=== PATIENT | female | born 1955 | race Caucasian/White ===

== ENCOUNTER → 2019-08-08 | Outpatient (CLI) | payer SELFPAY | PROVIDERS: Family Provider Nurse Practitioner; PCP Nurse Practitioner; Visit Provider Nurse Practitioner Family | DX: R60.0 Localized edema (principal) | CPT/HCPCS: 93970 ==

== ENCOUNTER 2019-09-07 15:02 | Outpatient (CLI) | payer MEDICARE, MEDICAID, SELFPAY ==
--- NOTE | 2019-09-07 15:10 | USCV_ITS ---
Shreya Salazar Age: 64 Gender: F : 1955 Exam Date: 09/07/2019 15:06 Ordering Phys: Melyssa Triana XX Technologist: Hakeem Werner Exam Location: [facility] [place] Indication: PAIN IN LOWER LIMB BILATERAL RIGHT LEFT Brachial 137.00 mmHg Brachial 135.00 mmHg Pressure (mmHg) Waveform Pressure (mmHg) Waveform 160.00 ALLEY TENDER 141.00 143.00 DPA 92.00 1.17 Ankle/Brachial Index 1.03 96.00 Pre-Exercise Toe Pressure 91.00 0.70 Pre-Exercise Toe/Brachial Index 0.66 FINDINGS Normal resting ABIs bilaterally Normal resting TBI on the right side Slightly diminished resting TBI on the left side CONCLUSIONS Features of mild peripheral artery disease on the left side No significant arterial obstruction on the right side Dr Brigida Mejia MD [facility] (Electronically Signed) Final Date: 08 September 2019 18:27 S
== END 2019-09-07 15:03 | disposition home or self-care (01) ==
LOC: RAD 15:06
PROVIDERS: Family Provider Nurse Practitioner; PCP Nurse Practitioner; Visit Provider Nurse Practitioner Family
DX: M79.604 Pain in right leg (principal); M79.605 Pain in left leg; G89.29 Other chronic pain; M54.5 Low back pain; M54.2 Cervicalgia; F17.210 Nicotine dependence, cigarettes, uncomplicated; Z79.891 Long term (current) use of opiate analgesic
CPT/HCPCS: 93922; 99214

== ENCOUNTER 2019-09-18 16:13 | Emergency (ER) | payer MEDICARE, MEDICAID, SELFPAY ==
[2019-09-18 16:19] VITALS: BP 151/61; PULSE 85; RESP 16; TEMP 37.8; O2SAT 95; BMI 24.7
--- NOTE | 2019-09-18 16:31 | ED_ITS ---
Entered by Katlyn Hartman, acting as scribe for Erin Lewis DO HPI - General Adult General: Chief complaint: General Medical Stated complaint: lungs hurt/ right leg pain Time Seen by Provider: 09/18/19 16:31 History of Present Illness: HPI narrative: 64 yo female presents with swelling in her legs. Pt states that she has been taking 80mg of lasix a day. Pt states that her legs are warm to the touch. Pt states that she thinks she has blood poi soning. Pt states that she has a fever. Pt states that she has had pneumonia for 7 months. MD complaint: leg swelling Onset (ago): day(s) Location: lower extremity Radiation: non-radiation Severity: moderate Quality: constant Pain Consistency: constant Relieving factors: none Exacerbating factors: none Associated symptoms: Reports cough, dyspnea and malaise; Deny chest pain, diaphoresis, headache(s), nausea, rash, palpitations, syncope or vomiting Review of Systems Const: Reports: fever, chills and malaise; Denies: body aches, change in appetite, change in weight, fatigue or diaphoresis Eyes: Denies: change in vision, blurry vision, blind spots, photophobia, eye discomfort, eye discharge, eye redness, yellow eyes or increased production of tears ENMT: Denies: throat pain, uvular edema, enlarged tonsils, painful swallowing, hoarseness, mouth pain or swelling of lips/tongue Card: Reports: edema; Denies: chest pain, palpitations, irregular heart rhythm, swelling of feet/ankles, lightheadedness, syncope, pre-syncope or shortness of breath on exertion Resp: Reports: shortness of breath and non-productive cough GI: Denies: abdominal pain, nausea, vomiting, vomiting blood, coffee grounds in vomit, difficulty swallowing or heartburn/indigestion : Denies: flank pain, difficulty urinating, painful urination, urinary frequency, urinary urgency or urinary hesitancy Musc: Reports: extremity pain and extremity swelling; Denies: neck pain or back pain Skin/Breast: Denies: rash, itching, redness or sensitivity to light Neuro: Denies: headache, numbness in extremities, weakness in extremities, changes in sensation, lack of coordination or difficulty walking Psych: Denies: anxiety, depression, mood swings, panic attacks, sleeping less or sleeping more Endo: Denies: excessive urination, excessive thirst, tired all the time, cold intolerance or excessive sweating All/Imm: Denies: hives, throat swelling, tongue swelling, facial swelling, acute wheezing or itchy eyes PFSH ED PFSH: Statuses (acute, chronic, etc) shown below reflect problem list status as previously entered and may not be historically accurate Medical History Chronic prescription opiate use (Chronic) COPD (chronic obstructive pulmonary disease) (Acute) GERD (gastroesophageal reflux disease) (Acute) Irritable bowel syndrome with diarrhea (Chronic) Opioid contract exists (Chronic) Spondylitis, ankylosing (Acute) Tobacco abuse (Acute) Surgical History History of hysterectomy (Acute) Family History Father Cancer Mother Cancer Family/Other Cancer Social History Smoking and tobacco status: current every day smoker cigarettes Smoking risk assessment/counseling performed?: No Alcohol intake: never Desire information about alcohol rehabilitation?: No Counseling given: No Desire information about substance/drug rehabilitation?: No Counseling given: No Caregiver/support person: No Lives independently: Yes Household members: none Housing: Apartment Marital status: / Number of children: 2 Number of grandchildren: 3 service: No Current occupational status: disabled Pets and animals: Yes Pets & animals: cat(s) and dog(s) History of recent travel: No Current gender identity: Female Physical Exam Const: COMMON NORMALS: no apparent distress, average body habitus, oriented x3 and no limitations GENERAL APPEARANCE: cooperative HENMT: COMMON NORMALS: normocephalic HEAD & SCALP: normal to inspection and normocephalic THROAT: no uvular edema Eye: COMMON NORMALS: PERRL PUPIL: Yes PERRL Neck/C-Spine: COMMON NORMALS: full ROM, no JVD and thyroid normal THYROID: thyroid normal Lymph: LYMPHATIC: no lymphadenopathy noted Chest: COMMONS NORMALS: inspection of chest normal Resp: COMMON NORMALS: normal respiratory effort Cardio: COMMON NORMALS: no JVD, regular rate and regular rhythm RATE: regular rate RHYTHM: regular rhythm GI: COMMON NORMALS: normal to inspection, nondistended, normoactive bowel sounds : COMMON NORMALS: Yes no CVA tenderness BLADDER/KIDNEY EXAM: Yes no CVA tenderness Back/Pelvis: COMMON NORMALS: no CVA tenderness Extremity: RIGHT LOWER EXTREMITY: Yes lower leg (erythema and edema 2 +) LEFT LOWER EXTREMITY: Yes lower leg Neuro: COMMON NORMALS: oriented x3 Course ED course: Patient was examined in room14, labs were drawn, a saline lock placed. A sputum culture obtained at request of patient as she has been working in her trailer house that she believes is infested with mold. She was given Tylenol 1 G po for her fever. Vital Signs: Vital signs: Vital Signs Temperature 100.1 F H 09/18/19 16:19 Pulse Rate 85 09/18/19 16:19 Respiratory Rate 16 09/18/19 16:19 Blood Pressure 151/61 09/18/19 16:19 Pulse Oximetry 95 09/18/19 16:19 MDM - General Adult Lab Data: Labs: Lab Results 09/18/19 09/18/19 Range/Units 16:49 16:49 WBC 8.2 (4.0-10.0) 10^3/ uL RBC 4.15 (4.1-5.3) 10^6/u L Hgb 13.3 (11.5-15.3) g/dL Hct 39.3 (37.0-47.0) % MCV 94.7 (81-99) fL MCH 32.0 (28.0-34.0) pg MCHC 33.8 (30.0-36.0) g/dL RDW 12.3 (12.1-15.1) % Plt Count 252 (130-400) 10^3/c mm MPV 10.3 (7.4-10.4) fL Neut % (Auto) 66.1 % Lymph % (Auto) 22.5 % Mckean % (Auto) 6.1 % Eos % (Auto) 4.4 % Baso % (Auto) 0.5 % Neut # (Auto) 5.4 (1.8-7.7) 10^3/u L Lymph # (Auto) 1.8 (0.8-4.8) 10^3/u L Mckean # (Auto) 0.5 (0.2-0.9) 10^3/u L Eos # (Auto) 0.4 (0.0-0.8) 10^3/u L Baso # (Auto) 0.0 (0.0-0.1) 10^3/u L Nucleated RBC % (a uto) 0 % Nucleated RBCs # 0.0 /100WBC Sodium 140 (136-145) mmol/L Potassium 3.6 (3.5-5.1) mmol/L Chloride 97 L (98-107) mmol/L Carbon Dioxide 31 H (22-29) mmol/L Anion Gap 15.6 (5-19) BUN 5 L (8-23) mg/dL Creatinine 1.0 H (0.5-0.9) mg/dL GFR Calculation 55.5 L (90-130) mL/min Glucose 86 (65-115) mg/dL Calcium 9.5 (8.5-10.5) mg/dL Total Bilirubin 0.3 (0.15-1.2) mg/dL AST 18 (0-32) U/L ALT 10 (0-33) U/L Alkaline Phosphata se 96 (35-105) IU/L Total Protein 6.5 L (6.6-8.7) g/dL Albumin 3.7 (3.5-5.2) g/dL Globulin 2.8 (1.3-4.6) g/dL Discharge Plan Discharge Patient Disposition: Home, Self-Care Clinical Impression: Bronchitis Cellulitis Qualifiers: Site of cellulitis: extremity Site of cellulitis of extremity: lower extremity Laterality: unspecified laterality Qualified Code(s): L03.119 - Cellulitis of unspecified part of limb Condition: Stable Prescriptions: New cefdinir 300 mg capsule 300 mg PO BID 5 Days Qty: 10 RF: 0 No Action levothyroxine 25 mcg capsule 25 mcg PO ONCE RF: 0 albuterol sulfate [Ventolin HFA] 90 mcg/actuation HFA aerosol inhaler 2 puff INHALATION Q4H PRNRF: 0 Breo Ellipta 100-25 mcg/dose blister with device 1 inh INHALATION Q24H RF: 0 albuterol sulfate 2.5 mg /3 mL (0.083 %) solution for nebulization 2.5 mg INHALATION Q6H RF: 0 prednisone 20 mg tablet 20 mg PO ONCE RF: 0 escitalopram oxalate [Lexapro] 20 mg tablet 20 mg PO ONCE RF: 0 Atrovent HFA 17 mcg/actuation HFA aerosol inhaler 2 puff INHALATION QID RF: 0 propranolol 10 mg tablet 10 mg PO BID RF: 0 guaifenesin [Adult Tussin Chest Congestion] 100 mg/5 mL liquid 200 mg PO BID PRNRF: 0 bumetanide 1 mg tablet 1 mg PO ONCE PRNRF: 0 potassium chloride 10 mEq capsule, extended release 10 meq PO ONCE RF: 0 metolazone 5 mg tablet 5 mg PO ONCE RF: 0 furosemide [Lasix] 80 mg tablet 40 mg PO QAM RF: 0 diazepam 5 mg tablet 5 mg PO TID PRNRF: 0 terconazole 0.4 % cream 1 appful VAGINAL .at bedtime Qty: 45 RF: 0 (DME) nebulizer accessories Kit See Rx Instructions .ROUTE .MEDSUPPLY Qty: 1 RF: 4 ketorolac 10 mg tablet 10 mg PO ONCE PRN (Reason: pain) Qty: 7 RF: 0 rosuvastatin 10 mg tablet 10 mg PO QDAY RF: 0 pregabalin 100 mg capsule 100 mg PO TID RF: 0 tizanidine 4 mg capsule 4 mg PO TID PRN (Reason: muscle spasticity) 30 Days Qty: 90 RF: 1 morphine 30 mg tablet 30 mg PO TID PRN (Reason: pain) 30 Days Qty: 90 RF: 0 morphine 30 mg tablet 30 mg PO TID PRN (Reason: pain) 30 Days Qty: 90 RF: 0 diphenoxylate-atropine [Lomotil] 2.5-0.025 mg tablet 1 tab PO BID PRN (Reason: diarrhea) Qty: 60 RF: 0 estradiol 0.01 % (0.1 mg/gram) cream 1 gm VAGINAL .2 times week Qty: 42.5 RF: 2 Discharge Orders: Discharge Order (Routine); Ordered 09/18/19 Ordered By: Erin Lewis Referrals: Myron Jacobs, [facility] [employer] APPRENTICE-C [Primary Care Provider] - Discharge Diet: Usual diet and Low Salt Discharge Activity: Resume usual activity Activity Restrictions/Additional Instructions: Patient is to follow up with her PCP, take antibiotics as directed. Elevate legs. Use tylenol for fever. Coding Level of Care Code ED Social Media Editor for Chg Fwd Exam Problem Focused The documentation recorded by the Devan blanco Kialy, accurately reflects the service I personally performed and the decisions made by me, Erin Lewis, DO
--- NOTE | 2019-09-18 16:39 | XR_ITS ---
WS: [id number] CHEST 2 VIEWS HISTORY: cough COMPARISON: 07/22/2019 Lungs: Mild hyperexpansion. No mass or pneumonia. Normal vasculature. No pleural effusion or pneumoth orax. Cardiac size: Normal. Mediastinum/Aorta: Normal mediastinum. Bones: Mild S-shaped curvature thoracolumbar spine. XR/XR chest 2V* [id number] IMPRESSION: 1. No acute cardiopulmonary disease. 2. Chronic emphysema.
[2019-09-18] MEDS: acetaminophen 500 mg Tablet 1000 MG PO (17:06)
[2019-09-18 17:09] LABS: Basophils % 0.5 %; Eosinophils # 0.4 10^3/uL (0.0-0.8); Eosinophils % 4.4 %; Hematocrit 39.3 % (37.0-47.0); Hemoglobin 13.3 g/dL (11.5-15.3); Lymphocytes # 1.8 10^3/uL (0.8-4.8); Lymphocytes % 22.5 %; Mean Corpuscular HGB Conc 33.8 g/dL (30.0-36.0); Mean Corpuscular Volume 94.7 fL (81-99); Mean Platelet Volume 10.3 fL (7.4-10.4); Monocytes # 0.5 10^3/uL (0.2-0.9); Monocytes % 6.1 %; Neutrophils # 5.4 10^3/uL (1.8-7.7); Neutrophils % 66.1 %; Nucleated Red Blood Cells % 0 %; Platelet Count 252 10^3/cmm (130-400); Red Blood Count 4.15 10^6/uL (4.1-5.3); Red Cell Distribution Width 12.3 % (12.1-15.1); White Blood Count 8.2 10^3/uL (4.0-10.0)
[2019-09-18 17:25] LABS: Alanine Aminotransferase 10 U/L (0-33); Albumin Level 3.7 g/dL (3.5-5.2); Alkaline Phosphatase 96 IU/L (35-105); Anion Gap 15.6 (5-19); Aspartate Amino Transferase 18 U/L (0-32); Blood Urea Nitrogen 5 mg/dL (8-23); Calcium 9.5 mg/dL (8.5-10.5); Carbon Dioxide 31 mmol/L (22-29); Chloride 97 mmol/L (98-107); Globulin 2.8 g/dL (1.3-4.6); Glomerular Filtration Rate 55.5 mL/min (90-130); Glucose 86 mg/dL (65-115); Potassium 3.6 mmol/L (3.5-5.1); Sodium 140 mmol/L (136-145); Total Bilirubin 0.3 mg/dL (0.15-1.2); Total Protein 6.5 g/dL (6.6-8.7)
[2019-09-18 18:06] VITALS: BP 111/63; PULSE 75; RESP 18; O2SAT 93
== END 2019-09-18 18:06 | disposition home or self-care (01) ==
PROVIDERS: Emergency Provider Emergency Medicine Emergency Medical Services; Family Provider Nurse Practitioner; PCP Nurse Practitioner
DX: L03.119 Cellulitis of unspecified part of limb (principal); J40 Bronchitis, not specified as acute or chronic; J44.9 Chronic obstructive pulmonary disease, unspecified; K21.9 Gastro-esophageal reflux disease without esophagitis; F17.210 Nicotine dependence, cigarettes, uncomplicated
CPT/HCPCS: 36415; 71046; 80053; 85025; 99281; 99283

== ENCOUNTER → 2019-09-29 15:43 | Outpatient (BNVA) | payer MEDICARE, MEDICAID, SELFPAY | PROVIDERS: Family Provider Nurse Practitioner; PCP Nurse Practitioner; Visit Provider Nurse Practitioner | DX: J44.9 Chronic obstructive pulmonary disease, unspecified (principal); M45.9 Ankylosing spondylitis of unspecified sites in spine; E05.90 Thyrotoxicosis, unspecified without thyrotoxic crisis or storm; L03.115 Cellulitis of right lower limb | CPT/HCPCS: 84439; 84443; 84481 ==

== ENCOUNTER 2019-10-05 13:58 | Outpatient (RCR) | payer MEDICARE, MEDICAID, SELFPAY | END 2019-10-08 23:59 | disposition home or self-care (01) | LOC: SPT 13:58 | PROVIDERS: Family Provider Nurse Practitioner; PCP Nurse Practitioner; Referring Provider Nurse Practitioner; Visit Provider Nurse Practitioner | DX: I89.0 Lymphedema, not elsewhere classified (principal); I87.2 Venous insufficiency (chronic) (peripheral) | CPT/HCPCS: 97140; 97161 ==

== ENCOUNTER → 2019-11-04 13:05 | Outpatient (BNVA) | payer MEDICARE, MEDICAID, SELFPAY | PROVIDERS: Family Provider Nurse Practitioner; PCP Nurse Practitioner; Visit Provider Anesthesiology | DX: Z76.89 Persons encountering health services in other specified circumstances (principal) | CPT/HCPCS: 99213 ==

== ENCOUNTER → 2020-02-21 14:40 | Outpatient (BNVA) | payer MEDICARE, MEDICAID, SELFPAY | PROVIDERS: Family Provider Nurse Practitioner; PCP Nurse Practitioner; Visit Provider Anesthesiology | DX: G89.29 Other chronic pain (principal); M54.42 Lumbago with sciatica, left side; M54.9 Dorsalgia, unspecified; M54.2 Cervicalgia; M45.0 Ankylosing spondylitis of multiple sites in spine; F17.210 Nicotine dependence, cigarettes, uncomplicated; Z79.891 Long term (current) use of opiate analgesic | CPT/HCPCS: 99214 ==

== ENCOUNTER → 2020-04-20 13:43 | Outpatient (BNVA) | payer MEDICARE, MEDICAID, SELFPAY | PROVIDERS: Family Provider Nurse Practitioner; PCP Nurse Practitioner; Visit Provider Anesthesiology | DX: G89.29 Other chronic pain (principal); M54.42 Lumbago with sciatica, left side; M54.2 Cervicalgia; M54.9 Dorsalgia, unspecified; M45.0 Ankylosing spondylitis of multiple sites in spine; F17.210 Nicotine dependence, cigarettes, uncomplicated; Z79.891 Long term (current) use of opiate analgesic | CPT/HCPCS: 99213; 99214 ==

== ENCOUNTER → 2020-05-22 12:59 | Outpatient (BNVA) | payer MEDICARE, MEDICAID, SELFPAY | PROVIDERS: Family Provider Nurse Practitioner; PCP Nurse Practitioner; Visit Provider Psychiatry & Neurology Psychiatry | DX: F60.81 Narcissistic personality disorder (principal); F17.200 Nicotine dependence, unspecified, uncomplicated; F41.1 Generalized anxiety disorder | CPT/HCPCS: 99204 ==

== ENCOUNTER → 2020-06-19 15:52 | Outpatient (BNVA) | payer MEDICARE, MEDICAID, SELFPAY | PROVIDERS: Family Provider Nurse Practitioner; PCP Nurse Practitioner; Visit Provider Nurse Practitioner | DX: E05.90 Thyrotoxicosis, unspecified without thyrotoxic crisis or storm (principal); I10 Essential (primary) hypertension; E55.9 Vitamin D deficiency, unspecified; R59.0 Localized enlarged lymph nodes | CPT/HCPCS: 80053; 80061; 82306; 82607; 84443; 85025 ==

== ENCOUNTER → 2020-08-29 15:56 | Outpatient (BNVA) | payer MEDICARE, MEDICAID, SELFPAY | PROVIDERS: Family Provider Nurse Practitioner; PCP Nurse Practitioner; Visit Provider Nurse Practitioner | DX: M45.0 Ankylosing spondylitis of multiple sites in spine (principal) | CPT/HCPCS: 72040; 72072; 72100 ==

== ENCOUNTER → 2020-10-25 14:06 | Outpatient (BNVA) | payer MEDICARE, SELFPAY | PROVIDERS: Family Provider Nurse Practitioner; PCP Nurse Practitioner; Visit Provider Nurse Practitioner | DX: E55.9 Vitamin D deficiency, unspecified (principal); E05.90 Thyrotoxicosis, unspecified without thyrotoxic crisis or storm; I10 Essential (primary) hypertension | CPT/HCPCS: 80053; 80061; 82306; 84443 ==

== ENCOUNTER → 2020-12-13 14:21 | Outpatient (BNVA) | payer MEDICARE, SELFPAY | PROVIDERS: Family Provider Nurse Practitioner; PCP Nurse Practitioner; Visit Provider Nurse Practitioner | DX: E05.90 Thyrotoxicosis, unspecified without thyrotoxic crisis or storm (principal) | CPT/HCPCS: 84443 ==

== ENCOUNTER → 2021-01-14 16:49 | Outpatient (BNVA) | payer MEDICARE, SELFPAY | PROVIDERS: Family Provider Nurse Practitioner; PCP Nurse Practitioner; Visit Provider Nurse Practitioner | DX: E05.90 Thyrotoxicosis, unspecified without thyrotoxic crisis or storm (principal); L30.8 Other specified dermatitis; J44.9 Chronic obstructive pulmonary disease, unspecified; M45.0 Ankylosing spondylitis of multiple sites in spine; F41.1 Generalized anxiety disorder; I10 Essential (primary) hypertension; M54.2 Cervicalgia; M54.9 Dorsalgia, unspecified; G89.29 Other chronic pain; E55.9 Vitamin D deficiency, unspecified; I25.2 Old myocardial infarction | CPT/HCPCS: 80053; 84439; 84443; 84481 ==

== ENCOUNTER → 2021-04-11 15:22 | Outpatient (BNVA) | payer MEDICARE, SELFPAY | PROVIDERS: Family Provider Nurse Practitioner; PCP Nurse Practitioner; Visit Provider Nurse Practitioner | DX: E05.90 Thyrotoxicosis, unspecified without thyrotoxic crisis or storm (principal); I10 Essential (primary) hypertension; E55.9 Vitamin D deficiency, unspecified; F41.1 Generalized anxiety disorder; J44.9 Chronic obstructive pulmonary disease, unspecified; M54.2 Cervicalgia; M54.9 Dorsalgia, unspecified; G89.29 Other chronic pain; K58.0 Irritable bowel syndrome with diarrhea; N95.2 Postmenopausal atrophic vaginitis; M45.0 Ankylosing spondylitis of multiple sites in spine; I25.2 Old myocardial infarction | CPT/HCPCS: 80053; 80061; 82306; 84439; 84443; 84481 ==

== ENCOUNTER → 2021-06-12 14:42 | Outpatient (BNVA) | payer MEDICARE, SELFPAY | PROVIDERS: Family Provider Nurse Practitioner; PCP Nurse Practitioner; Visit Provider Nurse Practitioner | DX: Z20.822 Contact with and (suspected) exposure to COVID-19 (principal); M45.0 Ankylosing spondylitis of multiple sites in spine | CPT/HCPCS: 87635 ==

== ENCOUNTER → 2021-07-18 14:32 | Outpatient (BNVA) | payer MEDICARE, SELFPAY | PROVIDERS: Family Provider Nurse Practitioner; PCP Nurse Practitioner; Visit Provider Nurse Practitioner | DX: Z20.822 Contact with and (suspected) exposure to COVID-19 (principal); I10 Essential (primary) hypertension; E55.9 Vitamin D deficiency, unspecified; J44.9 Chronic obstructive pulmonary disease, unspecified; F41.1 Generalized anxiety disorder; M45.0 Ankylosing spondylitis of multiple sites in spine; K58.0 Irritable bowel syndrome with diarrhea; J44.1 Chronic obstructive pulmonary disease with (acute) exacerbation; E05.90 Thyrotoxicosis, unspecified without thyrotoxic crisis or storm; I25.2 Old myocardial infarction; M54.2 Cervicalgia; M54.9 Dorsalgia, unspecified; G89.29 Other chronic pain | CPT/HCPCS: 80053; 84439; 84443; 84481; 87635 ==

== ENCOUNTER → 2021-11-11 15:48 | Outpatient (BNVA) | payer MEDICARE, SELFPAY | PROVIDERS: Family Provider Nurse Practitioner; PCP Nurse Practitioner; Visit Provider Nurse Practitioner | DX: E05.90 Thyrotoxicosis, unspecified without thyrotoxic crisis or storm (principal); Z11.59 Encounter for screening for other viral diseases | CPT/HCPCS: 80053; 84439; 84443; 84481; 86803 ==

== ENCOUNTER → 2022-01-09 16:29 | Outpatient (BNVA) | payer MEDICARE, MEDICAID, SELFPAY | PROVIDERS: Family Provider Nurse Practitioner; PCP Nurse Practitioner; Visit Provider Nurse Practitioner | DX: J44.9 Chronic obstructive pulmonary disease, unspecified (principal); E05.90 Thyrotoxicosis, unspecified without thyrotoxic crisis or storm; I10 Essential (primary) hypertension; Z72.0 Tobacco use; F41.1 Generalized anxiety disorder; M54.2 Cervicalgia; M54.9 Dorsalgia, unspecified; G89.29 Other chronic pain; K58.0 Irritable bowel syndrome with diarrhea; E55.9 Vitamin D deficiency, unspecified; J44.1 Chronic obstructive pulmonary disease with (acute) exacerbation; M45.0 Ankylosing spondylitis of multiple sites in spine; I25.2 Old myocardial infarction | CPT/HCPCS: 80053; 80061; 84439; 84443; 84481; 85025 ==

== ENCOUNTER → 2022-03-26 11:47 | Outpatient (BNVA) | payer MEDICARE, MEDICAID, SELFPAY | PROVIDERS: Family Provider Nurse Practitioner; PCP Nurse Practitioner; Visit Provider Nurse Practitioner | DX: J44.9 Chronic obstructive pulmonary disease, unspecified (principal); I10 Essential (primary) hypertension; Z72.0 Tobacco use; M45.0 Ankylosing spondylitis of multiple sites in spine; F41.1 Generalized anxiety disorder; I25.2 Old myocardial infarction | CPT/HCPCS: 71046 ==

== ENCOUNTER 2022-05-22 17:04 | Outpatient (CLI) | payer MEDICARE, MEDICAID, SELFPAY ==
--- NOTE | 2022-05-22 17:00 | CT_ITS ---
WS: [id number] CT CERVICAL SPINE HISTORY: M45.9 - Ankylosing spondylitis of unspecified sites in spine TECHNIQUE: Contiguous 2.5 mm axial imaging performed through the entire cervical spine. Sagittal and coronal reformats also performed. All CT scans at [facility] use at least one of these dose o ptimization techniques: automated exposure control; mA and/or kV adjustment per patient size (include s targeted exams where dose is matched to clinical indication); or iterative reconstruction. DLP: 221.47 mGy.cm COMPARISON: 02/24/2018 LEFT scoliosis cervical spine with straightening and reversal of the normal curvature. Reversal cente red at C4-C6. Moderate to severe disc space narrowing with anterior clawlike osteophytes from C4 to C 7. No fractures. Craniocervical junction is normally aligned. Facet joints are narrowed. C2-C3: Severe bilateral facet joint arthritis, LEFT greater than RIGHT. Small central disc protrusion . Moderate LEFT foraminal stenosis. No change. C3-C4: Vertebral body osteophytic ridging with severe facet joint arthritis, RIGHT greater than LEFT. Mild central and bilateral foraminal stenosis. C4-C5: Marked osteophytic ridging surrounding the vertebral bodies with facet arthritis. Osteophytes encroach upon the thecal sac. Moderate central with severe bilateral foraminal stenosis. Small centra l disc protrusion. Mild progression since the prior study. C5-C6: Diffuse osteophytic ridging around the vertebral bodies with facet arthritis. Severe central a nd bilateral foraminal stenosis, similar to the prior study. C6-C7: Diffuse vertebral body osteophytosis. Severe LEFT and moderate RIGHT foraminal stenosis. Mild central stenosis. C7-T1: No significant stenosis. Lung apices are clear. Enlarged bilateral thyroid. Multinodular goiter is suspected. Thyroid has incr eased in size since 2018. Moderate calcification in the carotid arteries. CT/CT cervical spin wo con* [id number] IMPRESSION: 1. Advanced degenerative spondylitic changes throughout the cervical spine. Mu ltilevel areas of significant stenosis. The stenosis has not significantly baker ged since the prior study from 2018. 2. Multilevel facet joint arthritis. 3. Moderate central with severe bilateral foraminal stenosis at C4-5. 4. Severe central and bilateral foraminal stenosis at C5-6. 5. Severe LEFT and moderate RIGHT foraminal stenosis at C6-7. 6. Moderate LEFT foraminal stenosis at C2-3. 7. Bilateral enlarged, nodular thyroid gland. Suspect multinodular goiter. Ult rasound can be performed for further evaluation if clinically necessary. Ultras ound was performed in 2018 which described a multinodular goiter but the thyroi d has enlarged since 2018.
== END 2022-05-22 17:05 | disposition home or self-care (01) ==
LOC: RAD 17:16
PROVIDERS: PCP Nurse Practitioner; Visit Provider Nurse Practitioner
DX: M45.9 Ankylosing spondylitis of unspecified sites in spine (principal); M48.02 Spinal stenosis, cervical region; E04.1 Nontoxic single thyroid nodule; M47.812 Spondylosis without myelopathy or radiculopathy, cervical region
CPT/HCPCS: 72125

== ENCOUNTER 2022-06-27 12:11 | Outpatient (CLI) | payer MEDICARE, MEDICAID, SELFPAY ==
--- NOTE | 2022-06-27 | CTR_ITS ---
PROCEDURE INFORMATION: Exam: CT Thoracic Spine Without Contrast Exam date and time: 06/27/2022 12:26 PM Age: 66 years old Clinical indication: Condition or disease; Spondylitis, ankylosing; Thoracic; Prior surgery; Surgery type: Fusion; Additional info: M45.9 - ankylosing spondylitis of unspecified sites in spine TECHNIQUE: Imaging protocol: Computed tomography of the thoracic spine without contrast. Radiation optimization: All CT scans at this facility use at least one of these dose optimization techniques: automated exposure control; mA and/or kV adjustment per patient size (includes targeted exams where dose is matched to clinical indication); or iterative reconstruction. COMPARISON: CT thoracic spin wo con* [id number] 06/07/2019 2:34 PM RADIATION DOSE METRICS: Total DLP (mGy-cm): 2060.85 FINDINGS: Bones/joints: Redemonstration of dextroscoliosis of the lower thoracic spine without significant change compared to the prior. Mild compensatory levoscoliosis of the upper thoracic spine is also noted. Diffuse osteopenia is again noted. Redemonstration of chronic inferior endplate compression deformity of the L1 vertebral body with loss of approximately 40% of the vertebral body height anteriorly. Redemonstration of mild multilevel degenerative disc disease without significant bulge or protrusion. Redemonstration of chronic multilevel facet joint ankylosis including T5-T6 through T12-L1 levels. Multilevel neural foraminal stenosis, most prominent at T1-T2, T2-T3, T3-T4, and T4-T5 on the right. Soft tissues: Redemonstration of diffuse thyroid enlargement and heterogeneity. Redemonstration of subtle diffuse paravertebral ossification running parallel to the spine given the appearance of bamboo spine. Appearance of squaring of the vertebral bodies. Lungs: Redemonstration of mild centrilobular emphysema. Mild coronary atherosclerotic calcifications. Mild calcifications of the aortic root. Liver: Redemonstration of hypodense lesion in the left hepatic lobe measuring approximately 2.2 by 1.4 cm, (series 4, image 60). CT/CT thoracic spin wo con* [id number] IMPRESSION: 1. Grossly unchanged CT of the thoracic spine with the appearance of ankylosing spondylitis. 2. Multilevel degenerative disc and joint disease as detailed above. 3. Redemonstration of facet joint hypertrophy with osteoarthritis and neural foraminal stenosis at T1-T2, T2-T3, T3-T4, and on the right at T4-T5. 4. Redemonstration of diffuse heterogenous thyromegaly compatible with a multinodular goiter. 5. Chronic emphysema. 6. Stable hypodense lesion in the left hepatic lobe.
--- NOTE | 2022-06-27 | CTR_ITS ---
PROCEDURE INFORMATION: Exam: CT Lumbar Spine Without Contrast Exam date and time: 06/27/2022 12:26 PM Age: 66 years old Clinical indication: Condition or disease; Spondylitis, ankylosing; Lumbar region; Prior surgery; Surgery type: Fusion; Additional info: M45.9 - ankylosing spondylitis of unspecified sites in spine TECHNIQUE: Imaging protocol: Computed tomography of the lumbar spine without contrast. Radiation optimization: All CT scans at this facility use at least one of these dose optimization techniques: automated exposure control; mA and/or kV adjustment per patient size (includes targeted exams where dose is matched to clinical indication); or iterative reconstruction. COMPARISON: CT lumbar spine wo con* [id number] 06/07/2019 2:38 PM RADIATION DOSE METRICS: Total DLP (mGy-cm): 2060. FINDINGS: Bones/joints: Redemonstration of levoscoliosis of the lumbar spine centered at L4-L5. Straightening of the lumbar lordosis with gentle kyphotic deformity centered at L1-L2. The alignment is otherwise maintained. Redemonstration of stable compression deformity of the anterior inferior endplate of the L1 vertebral body with loss of approximately 40% of the vertebral body height, grossly unchanged from prior. No retropulsion. The remaining vertebral bodies are maintained in height. No acute fractures are identified. Endplate degenerative changes noted at L4-L5 and L5-S1 with associated sclerosis and sub endplate cyst formation. Vacuum disc phenomenon noted at all levels. Decreased disc space heights, worst at L4-L5 followed by L3-L4 , L1-L2, and L5-S1. Suggestion of squaring of the vertebral bodies and vertebral corner erosions which may correlate with patient's clinical diagnosis of ankylosing spondylitis. There are degenerative changes of the sacroiliac joints. At T12-L1: No disc bulge. Bilateral facet arthropathy. Minimal bilateral neural foraminal stenosis. No high-grade spinal canal stenosis. At L1-L2: Mild disc osteophyte complex. Bilateral facet arthropathy with near fusion of the facet joint on the right. Minimal bilateral neural foraminal stenosis. No high-grade spinal canal stenosis. At L2-L3: Diffuse disc bulge. Hypertrophic facet arthropathy. Zycm-ns-umqfmnro spinal canal stenosis. Bilateral facet arthropathy. No significant neural foramina stenosis. At L3-L4: Minimal diffuse disc bulge. Bilateral hypertrophic facet arthropathy. Mild hypertrophy of the ligamentum flavum and slight increased posterior epidural fat. Sklk-az-rbjwvehq spinal canal stenosis. Mild right more than left neural foramina stenosis. At L4-L5: Diffuse disc bulge. Hypertrophy of the ligamentum flavum. Minimal increased posterior epidural fat. Bilateral facet arthropathy. Shfp-yw-buruigqq spinal canal stenosis. Bilateral lateral recess stenosis. Severe right and moderate to severe left neural foramina stenosis. At L5-S1: Diffuse disc bulge. Hypertrophy of the ligamentum flavum. Hypertrophic facet arthropathy. Mild increased posterior epidural fat. Ditq-yj-snhcnowf spinal canal stenosis. Bilateral lateral recess stenosis. Severe bilateral neural foramina stenosis. Liver: Stable 2.2 by 1.5 cm hypodense nodule in the left hepatic lobe, (series 3, image 4) Vasculature: Diffuse atherosclerotic calcifications of the abdominal aorta and its branches. Soft tissues: Small splenule is noted. Mild fatty atrophy of the pancreas. CT/CT lumbar spine wo con* [id number] IMPRESSION: 1. Grossly stable chronic inferior endplate compression deformity of the L1 vertebral body with loss of approximately 40% of the vertebral body height. 2. Findings concerning for ankylosing spondylitis. 3. Suggestion of squaring of the vertebral bodies and vertebral corner erosions which may correlate with patient's clinical diagnosis of ankylosing spondylitis. There are degenerative changes of the sacroiliac joints. 4. Multilevel degenerative disc and joint disease of the lumbar spine as detailed level by level above, grossly unchanged from prior. Please see individual levels for detailed description. 5. Stable 2.2 by 1.5 cm hypodense nodule in the left hepatic lobe.
== END 2022-06-27 12:12 | disposition home or self-care (01) ==
PROVIDERS: PCP Nurse Practitioner; Visit Provider Nurse Practitioner
DX: M45.9 Ankylosing spondylitis of unspecified sites in spine (principal); M48.04 Spinal stenosis, thoracic region; J43.9 Emphysema, unspecified
CPT/HCPCS: 72128; 72131

== ENCOUNTER 2022-07-11 13:52 | Outpatient (CLI) | payer MEDICARE, MEDICAID, SELFPAY ==
--- NOTE | 2022-07-11 | US_ITS ---
WS: [id number] ULTRASOUND THYROID TECHNIQUE: Ultrasound of the thyroid. CLINICAL INFORMATION: NODULE COMPARISON: Ultrasound thyroid 2018 FINDINGS: Thyroid: Enlarged multinodular goiter with heterogeneous parenchymal echotexture. Right thyroid lobe: 6.3 cm x 3.5 cm x 2.8 cm Complex well-circumscribed cystic and solid RIGHT thyroid nodule measuring 2.0 x 2.0 x 3.0 cm with in ternal cystic change. Left thyroid lobe: 6.5 cm x 3.0 cm x 2.6 cm. Complex LEFT mid thyroid nodule measuring 2.1 x 1.3 x 2.4 CM. Isthmus: 0.8 mm. Cervical lymphadenopathy: None. US/US thyroid [id number] IMPRESSION: 1. Heterogeneous enlarged thyroid most compatible with multinodular goiter. 2. Dominant complex RIGHT nodule measuring 2.0 x 2.0 x 3.0 cm slightly increas ed in size since 2018. Recommend continued surveillance. 3. Complex LEFT mid thyroid nodule measuring 2.1 x 1.3 x 2.4 cm is similar in appearance.
== END 2022-07-11 13:53 | disposition home or self-care (01) ==
LOC: RAD 13:52
PROVIDERS: PCP Nurse Practitioner; Visit Provider Nurse Practitioner
DX: E04.2 Nontoxic multinodular goiter
CPT/HCPCS: 76536

== ENCOUNTER → 2022-10-02 14:41 | Outpatient (BNVA) | payer MEDICARE, MEDICAID, SELFPAY | PROVIDERS: PCP Nurse Practitioner; Visit Provider Nurse Practitioner | DX: E05.90 Thyrotoxicosis, unspecified without thyrotoxic crisis or storm (principal); I10 Essential (primary) hypertension; J44.9 Chronic obstructive pulmonary disease, unspecified; F41.1 Generalized anxiety disorder; K58.0 Irritable bowel syndrome with diarrhea; E55.9 Vitamin D deficiency, unspecified; J44.1 Chronic obstructive pulmonary disease with (acute) exacerbation; M45.0 Ankylosing spondylitis of multiple sites in spine; I25.2 Old myocardial infarction | CPT/HCPCS: 80053; 80061; 82306; 84443 ==

== ENCOUNTER → 2023-01-07 16:21 | Outpatient (BNVA) | payer MEDICARE, MEDICAID, SELFPAY | PROVIDERS: PCP Nurse Practitioner; Visit Provider Nurse Practitioner | DX: E55.9 Vitamin D deficiency, unspecified (principal); E05.90 Thyrotoxicosis, unspecified without thyrotoxic crisis or storm; I10 Essential (primary) hypertension; R73.9 Hyperglycemia, unspecified; J44.9 Chronic obstructive pulmonary disease, unspecified; Z72.0 Tobacco use; F41.1 Generalized anxiety disorder; J44.1 Chronic obstructive pulmonary disease with (acute) exacerbation; M45.0 Ankylosing spondylitis of multiple sites in spine; I25.2 Old myocardial infarction | CPT/HCPCS: 80053; 83036; 84443 ==

== ENCOUNTER → 2023-03-12 15:51 | Outpatient (BNVA) | payer MEDICARE, MEDICAID, SELFPAY | PROVIDERS: PCP Nurse Practitioner; Visit Provider Nurse Practitioner | DX: E05.90 Thyrotoxicosis, unspecified without thyrotoxic crisis or storm (principal); N18.2 Chronic kidney disease, stage 2 (mild); I10 Essential (primary) hypertension; F41.1 Generalized anxiety disorder; J44.9 Chronic obstructive pulmonary disease, unspecified; E55.9 Vitamin D deficiency, unspecified; M45.9 Ankylosing spondylitis of unspecified sites in spine; Z72.0 Tobacco use; I25.2 Old myocardial infarction | CPT/HCPCS: 80048; 84443; 85025 ==

== ENCOUNTER → 2023-05-06 14:12 | Outpatient (BNVA) | payer MEDICARE, MEDICAID, SELFPAY | PROVIDERS: PCP Nurse Practitioner; Visit Provider Nurse Practitioner | DX: E05.90 Thyrotoxicosis, unspecified without thyrotoxic crisis or storm (principal) | CPT/HCPCS: 80053; 84439; 84481 ==

== ENCOUNTER → 2023-09-01 13:48 | Outpatient (BNVA) | payer MEDICARE, MEDICAID, SELFPAY | PROVIDERS: PCP Nurse Practitioner; Visit Provider Nurse Practitioner | DX: I10 Essential (primary) hypertension (principal); E05.90 Thyrotoxicosis, unspecified without thyrotoxic crisis or storm; E55.9 Vitamin D deficiency, unspecified | CPT/HCPCS: 80053; 80061; 82306; 84439; 84443; 84481; 85025 ==

== ENCOUNTER → 2024-01-14 14:54 | Outpatient (BNVA) | payer MEDICARE, MEDICAID, SELFPAY | PROVIDERS: PCP Nurse Practitioner; Visit Provider Nurse Practitioner | DX: I10 Essential (primary) hypertension (principal); E05.90 Thyrotoxicosis, unspecified without thyrotoxic crisis or storm; K58.0 Irritable bowel syndrome with diarrhea; L30.8 Other specified dermatitis; E66.3 Overweight | CPT/HCPCS: 80053; 80061; 84443 ==

== ENCOUNTER → 2024-03-31 17:12 | Outpatient (BNVA) | payer MEDICARE, MEDICAID, SELFPAY | PROVIDERS: PCP Nurse Practitioner; Visit Provider Nurse Practitioner | DX: E05.90 Thyrotoxicosis, unspecified without thyrotoxic crisis or storm (principal) | CPT/HCPCS: 84439; 84443; 84481 ==

== ENCOUNTER → 2024-05-18 15:48 | Outpatient (BNVA) | payer MEDICARE, MEDICAID, SELFPAY | PROVIDERS: PCP Nurse Practitioner; Visit Provider Nurse Practitioner | DX: E55.9 Vitamin D deficiency, unspecified (principal); E05.90 Thyrotoxicosis, unspecified without thyrotoxic crisis or storm; I10 Essential (primary) hypertension | CPT/HCPCS: 80053; 82306; 84443; 85025 ==

== ENCOUNTER → 2024-08-24 15:13 | Outpatient (BNVA) | payer MEDICARE, MEDICAID, SELFPAY | PROVIDERS: PCP Nurse Practitioner; Visit Provider Nurse Practitioner | DX: M45.0 Ankylosing spondylitis of multiple sites in spine (principal); M54.2 Cervicalgia; M54.9 Dorsalgia, unspecified; G89.29 Other chronic pain; I25.2 Old myocardial infarction; J44.9 Chronic obstructive pulmonary disease, unspecified; Z72.0 Tobacco use; F41.1 Generalized anxiety disorder; M45.9 Ankylosing spondylitis of unspecified sites in spine; K58.0 Irritable bowel syndrome with diarrhea; E55.9 Vitamin D deficiency, unspecified; E05.90 Thyrotoxicosis, unspecified without thyrotoxic crisis or storm; I10 Essential (primary) hypertension; J40 Bronchitis, not specified as acute or chronic; Z79.899 Other long term (current) drug therapy | CPT/HCPCS: 80053; 82306; 84443 ==

== ENCOUNTER → 2024-10-12 13:42 | Outpatient (BNVA) | payer MEDICARE, MEDICAID, SELFPAY | PROVIDERS: PCP Nurse Practitioner; Visit Provider Nurse Practitioner | DX: E55.9 Vitamin D deficiency, unspecified (principal); E05.90 Thyrotoxicosis, unspecified without thyrotoxic crisis or storm | CPT/HCPCS: 82306; 84443 ==

== ENCOUNTER 2024-10-26 13:54 | Outpatient (CLI) | payer MEDICARE, MEDICAID, SELFPAY ==
--- NOTE | 2024-10-26 13:40 | MM_ITS ---
WS: [id number] BILATERAL 3D TOMOSYNTHESIS DIGITAL SCREENING MAMMOGRAPHY WITH CAD CLINICAL INFORMATION: Z12.31 - Encounter for screening mammogram for malignant ... HISTORY: Screening mammogram. No current complaints. COMPARISON: 2016 TECHNIQUE: Bilateral CC and MLO views. FINDINGS: Scattered fibroglandular densities bilaterally. Dystrophic calcifications LEFT breast. Biopsy clip RIGHT breast. New small ovoid nodule measuring 6 mm lower outer RIGHT breast. Recommend RIGHT breast diagnostic mammography and ultrasound. Unremarkable LEFT breast. MM/MM [facility] tomosynthesis [id number] IMPRESSION: DENSITY: There are scattered areas of fibroglandular density. BI-RADS: 0 - Incomplete: Need additional imaging evaluation. FOLLOW UP: Need Additional Imaging Recommend RIGHT breast diagnostic mammography and ultrasound
== END 2024-10-26 13:55 | disposition home or self-care (01) ==
LOC: MOBLMAM 13:57
PROVIDERS: PCP Nurse Practitioner; Visit Provider Nurse Practitioner
DX: Z12.31 Encounter for screening mammogram for malignant neoplasm of breast (principal); R92.323 Mammographic fibroglandular density, bilateral breasts; R92.1 Mammographic calcification found on diagnostic imaging of breast; N63.13 Unspecified lump in the right breast, lower outer quadrant
CPT/HCPCS: 77063; 77067

== ENCOUNTER → 2025-01-17 16:32 | Outpatient (BNVA) | payer MEDICARE, MEDICAID, SELFPAY | PROVIDERS: PCP Nurse Practitioner; Visit Provider Nurse Practitioner | DX: I10 Essential (primary) hypertension (principal); E05.90 Thyrotoxicosis, unspecified without thyrotoxic crisis or storm | CPT/HCPCS: 80053; 80061; 84443 ==

== ENCOUNTER 2025-04-04 14:13 | Outpatient (CLI) | payer MEDICARE, MEDICAID, SELFPAY | END 2025-04-04 14:14 | disposition home or self-care (01) | PROVIDERS: PCP Nurse Practitioner; Visit Provider Nurse Practitioner | DX: I10 Essential (primary) hypertension (principal); E05.90 Thyrotoxicosis, unspecified without thyrotoxic crisis or storm | CPT/HCPCS: 80053; 84443 ==

== ENCOUNTER 2025-05-23 15:39 | Outpatient (CLI) | payer MEDICARE, MEDICAID, SELFPAY ==
--- NOTE | 2025-05-23 | CT_ITS ---
WS: [id number] LDCT LUNG CANCER SCREENING HISTORY: F17.210 - Nicotine dependence, cigarettes, uncomplicated TECHNIQUE: Axial imaging performed from the apices to 1 cm below the costophrenic angles. Coronal and sagittal reformats are submitted with axial MIP series. All CT scans at [facility] use at least one of these dose optimization techniques: automated exposure control; mA and/or kV adjustment per patient size (includes targeted exams where dose is matched to clinical indication); or iterative reconstruction. DLP: 67.12 mGy.cm DIvol: Mean CTDIvol: 1.40 (mGy) COMPARISON: Chest CT 02/28/2015 Diagnostic quality: Satisfactory Lungs: Pulmonary hyperexpansion. No pulmonary mass. There are a few very tiny micronodules in the periphery of the lungs. No endobronchial lesions. Heart: Normal size heart with no pericardial effusion.. Other findings: Mild atherosclerosis aorta. Normal size pulmonary artery. No mediastinal or hilar adenopathy. Thyroid gland is enlarged and extends substernal. Calcification in the inferior LEFT thyroid. Coarse calcification LEFT breast. LEFT adrenal 13 mm adenoma. Negative RIGHT adrenal gland. Long se gment moderate RIGHT curvature thoracic spine. CT/CT lung screening [id number] IMPRESSION: LUNG-RADS: 2-Benign Appearance or Behavior FOLLOW UP: 12 Month: Continue annual screening with LDCT OTHER FINDINGS (S MODIFIER): None.
== END 2025-05-23 15:40 | disposition home or self-care (01) ==
LOC: RAD 15:40
PROVIDERS: PCP Nurse Practitioner; Visit Provider Nurse Practitioner
DX: Z12.2 Encounter for screening for malignant neoplasm of respiratory organs (principal); F17.210 Nicotine dependence, cigarettes, uncomplicated; J98.4 Other disorders of lung; I70.0 Atherosclerosis of aorta; E04.9 Nontoxic goiter, unspecified; E07.89 Other specified disorders of thyroid; D35.02 Benign neoplasm of left adrenal gland; M43.8X4 Other specified deforming dorsopathies, thoracic region
CPT/HCPCS: 71271

== ENCOUNTER 2025-06-05 12:09 | Outpatient (CLI) | payer MEDICARE, MEDICAID, SELFPAY ==
--- NOTE | 2025-06-05 12:30 | CTR_ITS ---
PROCEDURE INFORMATION: Exam: CT Cervical Spine Without Contrast Exam date and time: 06/05/2025 12:37 PM Age: 69 years old Clinical indication: Condition or disease; Other: Ankylosing spondylitis of multiple sites in spine; Additional info: M45.0 - ankylosing spondylitis of multiple sites in spine TECHNIQUE: Imaging protocol: Computed tomography of the cervical spine without contrast. Radiation optimization: All CT scans at this facility use at least one of these dose optimization techniques: automated exposure control; mA and/or kV adjustment per patient size (includes targeted exams where dose is matched to clinical indication); or iterative reconstruction. COMPARISON: CT cervical spin wo con* [id number] 05/22/2022 5:22 PM RADIATION DOSE METRICS: Total DLP (mGy-cm): 144.57 FINDINGS: Bones: Mild cervical kyphosis centered at C5-C6. No malalignment. No fracture or vertebral body height loss from C1 through T1. Severe hypertrophic degenerative changes persist at the anterior articulation of C1 and C2. Protuberant anterior, bridging osteophytes at the C4-C5, C5-C6 and C6-C7 levels have enlarged since the prior exam. Right-sided discogenic osteophytes and uncinate hypertrophy at C4-C5 and C5-C6 result in severe right C5 and C6 foraminal narrowing. Severe hypertrophic facet arthropathy on the right at C2-C3 and C3-C4 and on the left at C2-C3, C3-C4. No severe spinal canal narrowing. Lungs: Lung apices are normal. Thyroid: Marked thyroid gland enlargement . Vasculature: Marked bilateral carotid bulb calcification persists. Soft tissues: Unremarkable. CT/CT cervical spin wo con* [id number] IMPRESSION: 1. Severe midcervical spondylosis has progressed since the prior exam. 2. Unchanged severe facet arthropathy in the upper cervical spine. 3. Severe right C5 and C6 foraminal narrowing. 4. Persistent thyromegaly. 5. Marked bilateral carotid bulb calcification persists.
--- NOTE | 2025-06-05 12:30 | CTR_ITS ---
PROCEDURE INFORMATION: Exam: CT Thoracic Spine Without Contrast Exam date and time: 06/05/2025 12:39 PM Age: 69 years old Clinical indication: Condition or disease; Spondylitis, ankylosing; Thoracic; Prior surgery; Surgery date: 6+ months; Surgery type: T1-l3; Additional info: M45.0 - ankylosing spondylitis of multiple sites in spine TECHNIQUE: Imaging protocol: Computed tomography of the thoracic spine without contrast. Radiation optimization: All CT scans at this facility use at least one of these dose optimization techniques: automated exposure control; mA and/or kV adjustment per patient size (includes targeted exams where dose is matched to clinical indication); or iterative reconstruction. COMPARISON: CT thoracic spin wo con* [id number] 06/27/2022 12:26 PM RADIATION DOSE METRICS: Total DLP (mGy-cm): 446.31 FINDINGS: Bones/joints: 34 degrees of dextroscoliosis of the lower thoracic spine is unchanged. Vertebral body and posterior element ankylosis persists from T5 to L2. Unchanged L1 compression fracture. No acute fracture or malalignment. No spinal canal narrowing or neural foraminal narrowing. Severe degenerative disc disease and degenerative facet disease again noted at T4-5. Soft tissues: Unremarkable. Lungs: Visualized lungs are clear. Coronary arteries: Mild coronary artery calcifications are present. Thyroid: The enlarged thyroid gland is partially imaged on this exam. CT/CT thoracic spin wo con* [id number] IMPRESSION: 1. No acute fracture or malalignment. 2. Unchanged appearance to ankylosing spondylitis. 3. Severe degenerative disc disease and degenerative facet disease again noted at T4-5.
--- NOTE | 2025-06-05 12:30 | CTR_ITS ---
PROCEDURE INFORMATION: Exam: CT Lumbar Spine Without Contrast Exam date and time: 06/05/2025 12:43 PM Age: 69 years old Clinical indication: Condition or disease; Spondylitis, ankylosing; Lumbar region; Prior surgery; Surgery date: 6+ months; Surgery type: T1-l3; Additional info: M45.0 - ankylosing spondylitis of multiple sites in spine TECHNIQUE: Imaging protocol: Computed tomography of the lumbar spine without contrast. Radiation optimization: All CT scans at this facility use at least one of these dose optimization techniques: automated exposure control; mA and/or kV adjustment per patient size (includes targeted exams where dose is matched to clinical indication); or iterative reconstruction. COMPARISON: CT lumbar spine wo con* [id number] 06/27/2022 12:26 PM RADIATION DOSE METRICS: Total DLP (mGy-cm): 443.26 FINDINGS: Bones/joints: 13 degrees of levoscoliosis centered at L5 is unchanged. Mild L1 compression fracture is unchanged. No acute fracture or vertebral body height loss. A suspicious osseous lesion has not developed. Multilevel severe degenerative disc disease, most marked from L3-S1. Endplate sclerosis, irregularity and disc height loss has intervally progressed at L2-L3. Severe facet arthropathy again noted from T12-L4, with fusion of the L1-L2 facets. Moderate to severe spinal canal narrowing at L4-L5 and L5-S1. Severe right foraminal narrowing at L4-L5 and L5-S1. Severe left foraminal narrowing at L5-S1. Multilevel moderate foraminal narrowing. Gallbladder and biliary ducts: Cholecystolithiasis. Soft tissues: Unremarkable. CT/CT lumbar spine wo con* [id number] IMPRESSION: 1. Multilevel severe degenerative disc disease, most marked from L3-S1. Endplate sclerosis, irregularity and disc height loss has intervally progressed at L2-L3. 2. Moderate to severe spinal canal narrowing at L4-L5 and L5-S1 . 3. Severe right foraminal narrowing at L4-L5 and L5-S1. Severe left foraminal narrowing at L5-S1.
== END 2025-06-05 12:10 | disposition home or self-care (01) ==
LOC: RAD 12:10
PROVIDERS: PCP Nurse Practitioner; Visit Provider Nurse Practitioner
DX: M45.0 Ankylosing spondylitis of multiple sites in spine (principal); X58.XXXD Exposure to other specified factors, subsequent encounter; M48.56XD Collapsed vertebra, not elsewhere classified, lumbar region, subsequent encounter for fracture with routine healing; M51.34 Other intervertebral disc degeneration, thoracic region; M47.894 Other spondylosis, thoracic region
CPT/HCPCS: 72125; 72128; 72131

== ENCOUNTER 2025-06-26 15:41 | Outpatient (CLI) | payer MEDICARE, MEDICAID, SELFPAY ==
--- NOTE | 2025-06-26 16:08 | US_ITS ---
WS: [id number] THYROID ULTRASOUND HISTORY: THYROMEGALY COMPARISON: 07/11/2022, 07/08/2018 Right lobe: 2.8 cm x 3.0 cm x 5.9 cm (w x ap x l). Volume: 23.4 cm3. Markedly enlarged heterogeneous nodular thyroid. Similar findings have been described on prior studies. There are a few cystic areas within the nodules. There is no extra gland extension. There is no discrete nodule. No increased vascularity. Left lobe: 3.2 cm x 2.7 cm x 7.3 cm (w x ap x l). Volume: 30.9 cm3. Markedly enlarged entire LEFT thyroid. Multiple nodules and a few cystic nodules. Moderate increased vascularity. Similar findings have been noted on prior studies. Isthmus: 0.6 cm. US/US thyroid [id number] IMPRESSION: 1. Long-term stability of an enlarged nodular thyroid gland. This is most like ly a goiter. There is no discrete nodule for which biopsy is recommended.
== END 2025-06-26 15:42 | disposition home or self-care (01) ==
LOC: RAD 15:43
PROVIDERS: PCP Nurse Practitioner; Visit Provider Nurse Practitioner
DX: E05.90 Thyrotoxicosis, unspecified without thyrotoxic crisis or storm (principal); E07.89 Other specified disorders of thyroid
CPT/HCPCS: 76536

== ENCOUNTER 2025-07-05 07:59 | Inpatient (IN) | payer MEDICARE, MEDICAID, SELFPAY ==
--- OUTSIDE RECORDS SUMMARY | 2024-06-04 03:00 | XMS_ITS ---
Author Organization [facility] Address [address] [place] [address] Support Name Relationship Address , Chris Taylor Emergency Contact Unknown Unavailable MORGAN MARKS Guarantor Unknown [phone] Care Team Providers Care Billing And Quality Technician Name Role Phone Migration, Provider Unavailable Unavailable REASON FOR VISIT EMR-Cuong Encounters Encounter Location Date Provider Diagnosis Migrated_Facility 0 0 06/04/2024 Provider Migration Plan Of Treatment No Information Progress Notes * MORGAN MARKSDOB:1955 (69 yo F)Acc No.[id number]:06/04/2024 Patient: Miya OSMANIJOSEPHMORGAN :1955 A ge:68 Y S ex:Female Address:[address], [place] [address] Subjective: * Chief Complaints: * E MR-Cuong * * Date:
--- OUTSIDE RECORDS SUMMARY | 2024-06-05 03:00 | XMS_ITS ---
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 Role Phone Migration, Provider Unavailable Unavailable Allergies Allergen (clinical drug ingredient) Drug/Non Drug Allergy documented on EMR Reaction Allergy Type Onset Date Status meperidine Demerol skin damage Drug Allergy Acti ve erythromycin Erythromycin Base redness itching Drug Allergy Active Latex Latex skin damage Allergy Active methadone Methadone rash Drug Allergy Active oxycodone Oxycodone itching, rash Drug Allergy Act any tetracycline Tetracycline redness, itching Drug Allergy Active REASON FOR VISIT EMR-Cuong Medications Medication SIG (Take, Route, Frequency, Duration) Notes Start Date End Date Status Medrol *Pick strength-f orm from [facility] for eRX* Active Lomotil *[facility]* Active Lexapro *[facility]* Active Tapazole *Reorder from [place] [facility] for eRx and Interaction Alerts* Active Propranolol *Reorder from [place] [facility] for eRx and Interaction Alerts* Active Ventolin HFA *[facility]* Active Social History Social History Additional Details Category Social Info Options Details Migrated Social History Migrated Social History Alcoholic beverages? - No, Currently on disability? - Yes, Marital Status - , Nonprescription drug use? - No, Smoking - No, Smoking status (MU) - Former smoker, Working currently? - No Encounters Encounter Location Date Provider Diagnosis Migrated_Facility 0 0 06/05/2024 Provider Migration Plan Of Treatment No Information Progress Notes * MORGAN MARKSDOB:1955 (69 yo F)Acc No.[id number]:06/05/2024 Patient: Miya TREADWELL, MORGAN :1955 A ge:68 Y S ex:Female Address:[address] [place] [address], [address], [place] [address] Subjective: * Chief Complaints: * E MR-Cuong * Medical History: Arthritis, T hyroid disease, * Surgical History: Hysterectomy Spinal fusion * Family History: M igrated Family History: : Cancer. * Social History: M igrated Social History: M igrated Social History: Alcoholic beverages? - No, C urrently on disability? - Yes, M arital Status - , N onprescription drug use? - No, S moking - No, S moking status (MU) - Former smoker, W orking currently? - No. * Medications: T akingMedrol , Notes to Pharmacist: *Pick strength-form from [facility] for eRX*Ventolin HFA , Notes to Pharmacist: *Pick strength-form from [facility] for eRX*Tapazole , Notes to Pharmacist: *Reorder from [facility] for eRx and Interaction Alerts*Lexapro , Notes to Pharmacist: *Pick strength-form from [facility] for eRX*Propranolol , Notes to Pharmacist: *Reorder from [facility] for eRx and Interaction Alerts*Lomotil , Notes to Pharmacist: *Pick strength-form from [facility] for eRX*Taking Medrol , Notes to Pharmacist: *Pick strength-form from [facility] for eRX*Taking Ventolin HFA , Notes to Pharmacist: *Pick strength-form from [facility] for eRX*Taking Tapazole , Notes to Pharmacist: *Reorder from [facility] for eRx and Interaction Alerts*Taking Lexapro , Notes to Pharmacist: *Pick strength-form from [facility] for eRX*Taking Propranolol , Notes to Pharmacist: *Reorder from [facility] for eRx and Interaction Alerts*Taking Lomotil , Notes to Pharmacist: *Pick strength-form from [facility] for eRX* * Allergies: T etracycline: redness, itching - AllergyLatex: skin damage - AllergyMethadone: rash - AllergyErythromycin Base: redness itching - AllergyOxycodone: itching, rash - AllergyDemerol: skin damage - Allergy * * Date:
[2025-07-05] VITALS (76 sets, daily range): BP systolic 91–191; BP diastolic 55–128; PULSE 73–107; RESP 11–32; TEMP 36.4–38; O2SAT 93–100; BMI 29.5
--- NOTE | 2025-07-05 08:02 | XRR_ITS ---
PROCEDURE INFORMATION: Exam: XR Chest Exam date and time: 07/05/2025 8:06 AM Age: 69 years old Clinical indication: Device placement; Ett placement (vent status); Additional info: Intubated patient TECHNIQUE: Imaging protocol: Radiologic exam of the chest. Views: 1 view. Total images: 150 COMPARISON: CT lung screening [id number] 05/23/2025 3:49 PM FINDINGS: Tubes, catheters and devices: Endotracheal tube overlies the trachea with the tip 4.5 cm above the chaitanya in satisfactory position. Enteric tube is noted with the tip at the GE junction. Consider advancing 15 cm. Lungs: Low lung volumes are present, accentuating pulmonary markings. Pleural spaces: Unremarkable. No pleural effusion. No pneumothorax. Heart/Mediastinum: Heart size is stable when compared to the prior exam. Bones/joints: [place] right spinal scoliosis. XR/XR chest 1V portable [id number] IMPRESSION: 1. Endotracheal tube overlies the trachea with the tip 4.5 cm above the chaitanya in satisfactory position. 2. Enteric tube is noted with the tip at the GE junction. Consider advancing 15 cm. 3. Low lung volumes are present, accentuating pulmonary markings.
[2025-07-05] MEDS: midazolam hcl 100 MG/100 ML BAG IV (08:03)
--- NOTE | 2025-07-05 08:04 | ECG_ITS ---
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 Measurements Intervals [place] Rate: 95 P: 81 HI: 172 QRS: 91 QRSD: 93 T: 97 QT: 375 QTc: 472 Interpretive Statements SINUS RHYTHM INCOMPLETE RIGHT BUNDLE BRANCH BLOCK [90+ ms QRS DURATION, TERMINAL R IN V1/V2, 40+ ms S IN I/aVL/V4/V5/V6] Compared to ECG 12/16/2016 06:13:48 Incomplete right bundle-branch block now present Sinus arrhythmia no longer present T-wave abnormality no longer present Electronically Signed On 07-06-2025 17:40:16 PUBLIC WELFARE WORKER by Ely Hartman M.D. [email or web address]
--- OUTSIDE RECORDS SUMMARY | 2025-07-05 08:06 | XMS_ITS | Patient Health Record ---
Author Organization [facility] Address [address] [place] [address] Support Name Relationship Address , Chris Leighjasen Emergency Contact Unknown Unavailable MORGAN MARKS Guarantor Unknown [phone] Reason For Referral No Information Medications Medication SIG (Take, Route, Frequency, Duration) Notes Start Date End Date Status Medrol *Pick strength-f orm from [facility] for eRX* Active Ventolin HFA *Pick strength-f orm from [facility] for eRX* Active Lomotil *Pick strength-f orm from [facility] for eRX* Active Lexapro *[facility]* Active Tapazole *Reorder from [place] dispan for eRx and Interaction Alerts* Active Propranolol *Reorder from [place] dispan for eRx and Interaction Alerts* Active Social History Social History Additional Details Category Social Info Options Details Migrated Social History Migrated Social History Alcoholic beverages? - No, Currently on disability? - Yes, Marital Status - , Nonprescription drug use? - No, Smoking - No, Smoking status (MU) - Former smoker, Working currently? - No Plan Of Treatment No Information Medical (General) History Surgical History Surgery Date(Month/Year) Hysterectomy Spinal fusion
--- NOTE | 2025-07-05 08:12 | ED_ITS ---
HPI - SOB/Dyspnea 2 General: Chief Complaint: Shortness of Breath/Dyspnea Stated Complaint: Severe Resp Distress Time Seen by Provider: 07/05/25 08:01 History of Present Illness: HPI Narrative: 69-year-old female with a history of chr onic kidney disease, coronary artery disease, anxiety, insomnia, hypothyroidism, GERD and COPD who presents to the emergency room on a ventilator. According to EMS when they got there she was extremely tachypneic. Very tight. Ultimately she is consented to intubation. She has received terbutaline, magnesium, updrafts, Solu-Medrol, was intubated. She required a dose of epinephrine when her blood pressure dropped after she was intubated. Ketamine was used for intubation along with some Versed. On arrival here her O2 sats are in the upper 90s being bagged through an ET tube. Blood pressures in the 120s systolic. She is not tachycardic. She does have a fever of 100.4. Related Data Home Medications ?Medication ?Instructions ?Recorded ?Confirmed morphine 30 mg tablet,extended 30 mg PO Q12H 11/25/24 06/08/25 release Previous Rx's ?Medication ?Instructions ?Recorded mupirocin 2 % topical ointment 1 applic topical BID #2 2 grams 07/17/22 L.acidop,casei,lactis,rham-B.lact,nikki 1 cap PO .2 time s day #60 caps 01/07/23 625 mg (10 billion cell) capsule (Advanced Probiotic) lidocaine 4 % topical spray 1 spray topical .2 times # 113 grams 08/12/23 (Aspercreme (lidocaine)) silver sulfadiazine 1 % topical 1 applic topical DAILY #85 grams 09/11/23 cream (Silvadene) nystatin 100,000 unit/mL oral 5 ml PO QID #200 mL 01/08 09/02 suspension inogen oxygen 3L NC #1 ea 03/02/24 tacrolimus 0.03 % topical ointment 1 applic topical BI D PRN dry skin 03/09/24 #60 grams hydrocortisone 2.5 % topical cream 1 applic topical BI D PRN skin 05/18/24 irritation #30 grams nitroglycerin 0.4 mg sublingual 0.4 mg sublingual Q5M PRN chest 12/08/24 tablet pain #25 tabs budesonide 0.5 mg/2 mL suspension 0.5 mg (2 mL) inhala tion BID #60 mL 04/04/25 for nebulization (Pulmicort) budesonide 160 mcg-glycopyr 9 2 inh inhalation BID #10 .7 grams 04/04/25 mcg-formot 4.8 mcg/actuation HFA inhaler (Breztri Aerosphere) chlorhexidine gluconate 0.12 % 15 ml buccal BID #473 m L 04/04/25 mouthwash (Peridex) clonazepam 1 mg tablet (Klonopin) 1 mg PO BID PRN anxi ety #60 tabs 04/04/25 escitalopram oxalate 20 mg tablet 20 mg PO DAILY #30 t abs 04/04/25 (Lexapro) potassium chloride 10 mEq 10 meq PO DAILY PRN with flu id 04/04/25 capsule,extended release pill #30 caps propranolol 10 mg tablet 10 mg PO BID #60 tabs triamcinolone acetonide 0.1 % 1 applic topical BID #80 grams 04/04/25 topical cream methimazole 5 mg tablet 5 mg PO .COMPLEX #30 tabs ipratropium 0.5 mg-albuterol 3 mg 3 ml inhalation Q6H PRN wheezing 05/22/25 (2.5 mg base)/3 mL nebulization #180 mL soln nebulizers (AeroEclipse II #1 ea 05/22/25 Nebulizer) amoxicillin 500 mg-potassium 1 tab PO Q12H #14 tabs clavulanate 125 mg tablet (Augmentin) Ventolin HFA 90 mcg/actuation 2 puff inhalation Q4H [place] N 06/28/25 aerosol inhaler (albuterol sulfate) shortness of breat h or wheezing #18 grams diphenoxylate-atropine 2.5 1 tab PO BID PRN diarrhea # 60 tabs 06/28/25 mg-0.025 mg tablet (Lomotil) baclofen 20 mg tablet 20 mg PO DAILY #30 tabs 06/11 01/01 ergocalciferol (vitamin D2) 1,250 1,250 mcg PO .weekly #4 caps 07/04/25 mcg (50,000 unit) capsule ketorolac 10 mg tablet 10 mg PO DAILY PRN pain #10 tabs 07/04/25 prednisone 5 mg tablet 5 mg PO DAILY #20 tabs 07/04 Allergies Allergy/AdvReac Type Severity Reaction Status Date / Time Opioids-Meperidine and Allergy Severe Rash and Verified 06/08/25 18:16 Related itching Opioids-Methadone and Related Allergy Severe Itching Verified 06/08/25 18:16 erythromycin base Allergy Intermediate Itching Verified 06/08/25 18:16 Latex, Natural Rubber Allergy Intermediate Itching Verified 06/08/25 18:16 levofloxacin (From Levaquin) Allergy Intermediate Rash Verified 06/08/25 18:16 Tetracyclines Allergy Intermediate Rash Verified 06/08/25 18:16 trimethoprim Allergy Mild Itching Verified 06/08/25 18:16 Review of Systems 2 General: Reports: ROS unobtainable due to endotracheal tube PFSH ED 2 PFSH: Medical History (Updated 07/05/25 @ 09:08 by Kelin Rodas MD) CKD (chronic kidney disease) stage 2, GFR 60-89 ml/min Interstitial cystitis Medical marijuana use Psoriasiform dermatitis Vitamin D deficiency History of NC (myocardial infarction) Generalized anxiety disorder Nicotine dependence, unspecified, uncomplicated Insomnia Hyperthyroidism Spondylitis, ankylosing GERD (gastroesophageal reflux disease) COPD (chronic obstructive pulmonary disease) Tobacco abuse Irritable bowel syndrome with diarrhea Surgical History History of thoracic surgery age 12 History of lumbar surgery age 12 History of hysterectomy Family History Father Cancer Mother Cancer Family/Other Cancer Social History Smoking and tobacco/nicotine status: current every day tobacco/nicotine user cigarettes Packs smoked per day: 0.5 Years cigarettes smoked: 52 Quit status (tobacco/nicotine): has tried quititng Number of times tried to quit tobacco: 20 Second hand smoke exposure: No Alcohol intake: never Substance/Drug Use: current Substance/Drug use frequency: daily Caregiver/support person: No Lives independently: Yes Household members: none Housing: Apartment Marital status: / Number of children: 2 Number of grandchildren: 3 service: No Current occupational status: disabled Pets and animals: Yes Pets & animals: cat(s) and dog(s) Do you think of yourself as: Straight/Heterosexual Current gender identity: Female Physical Exam 2 Narrative: EXAM NARRATIVE: General: unresponsive, intubated. Skin: Warm, dry Head: Normocephalic, atraumatic. Neck: Supple, trachea midline. Eye: pupils pinpoint, sluggish, equal Ears, nose, mouth and throat: ETT in place. Cardiovascular: Regular rate and rhythm, Normal peripheral perfusion. Respiratory: coarse, mechanically ventilated, breath sounds are equal, Symmetrical chest wall expansion. Gastrointestinal: Soft, Non distended Musculoskeletal: no deformity. Neurological: unable to assess. Psychiatric: unable to assess Course 2 Vital Signs: Vital signs: Vital Signs Temperature 100.4 F H 07/05/25 08:08 Pulse Rate 91 07/05/25 09:15 Respiratory Rate 15 07/05/25 09:15 Blood Pressure 108/65 07/05/25 09:15 Pulse Oximetry 100 07/05/25 09:15 Oxygen Delivery Me thod Mechanical Ventil ation 07/05/25 08:40 Fraction of Inspir ed Oxygen 40 07/05/25 08:38 MDM - SOB/Dyspnea Medical Decision Making Medical decision making Patient's reason for coming to the emergency room: Shortness of breath, intubated Social determinants: Patient comes from home. I reviewed the patient's medical record. 1-year-old female with a history of chronic kidney disease, coronary artery disease, anxiety, insomnia, hypothyroidism, GERD and COPD I reviewed the patient's current home meds Prescription monitoring shows patient is on morphine extended release. Alternate historians: EMS and also spoke with her son who tells me she had worsening sputum recently and she was saying she might need some antibiotics. Differential diagnosis for patient with shortness of breath includes but is not limited to and based on the above HPI, review of systems and physical exam: Pneumonia. Bronchitis. Asthma or COPD with acute exacerbation. Acute coronary syndrome / NC. Pulmonary embolism. Anxiety. Congestive heart failure. Viral infections including influenza and Covid-19. Atrial fibrillation. Anxiety. Pleural effusion. Pneumothorax. Orders placed to evaluate differential diagnosis based on the above differential, HPI and physical exam EKG: Time 8:04 AM. Rate 95. Normal sinus rhythm, No ST-T changes, no ectopy, normal [place] & QRS intervals, This was reviewed and interpreted by myself the ER physician at 8:07 AM Chest x-ray: ET tube about 4-1/2 cm above the chaitanya and just below the clavicles. I actually advance this about a centimeter. Enteric tube is at the GE junction. This is being advanced. This was reviewed and interpreted by myself the emergency room physician. I also reviewed the radiology report. Lab Review: Laboratory results were reviewed and interpreted by myself the emergency room physician. Mild leukocytosis. Lactic acid is negative. Flu COVID and RSV are negative. No anemia. Liver enzymes are normal. AB.12/69/490 with an O2 sat of 98%. Most likely primary respiratory acidosis. Perhaps some metabolic acidosis as well. Assessment of risk: Level of risk: High risk patient. Multiple comorbidities. Hospitalization considerations: Patient is being admitted. She was intubated in the field. Reexamination: Patient's oxygenation is good on the vent. She is well sedated. Consultation: I spoke with Dr. Jaramillo who is on-call for the hospital service who agrees to admission to the ICU for Assessment and plan: Acute hypoxemic respiratory failure Acute hypercapnic respiratory failure Respiratory acidosis Hypotension Sepsis ?Patient received terbutaline, IV magnesium, updrafts, Solu-Medrol and was intubated in the field ?Updraft here. ?Maintaining oxygen on the vent but still with some retention. Acidosis on ABG ?With fever, respiratory failure and reports of worsening sputum at home treating her for pneumonia and possible sepsis. -2 L normal saline bolus. Slightly greater than 30 mL/kg. -Broad-spectrum antibiotics were administered. -Sepsis quality measures. -Lactic acid with a reflex was ordered. -Blood cultures were ordered. ?I reevaluated the patient's volume status after sepsis fluids were given. -I discussed the patient with the hospitalist on-call who is admitting the patient. - Discussed findings and plan with family. Answered any questions. - All laboratory values were reviewed and interpreted personally by myself, the ER physician - All imaging was reviewed and interpreted personally by myself, the ER physician. - Evaluation and treatment of this problem were appropriate in the emergency setting Critical Care: -I spent a total of 45 minutes of critical care time managing the patient, independent of any other practitioner. -The time involved in the performance of separately reportable procedures was not counted towards critical care time. Lab Data 07/05/25 08:15 07/05/25 08:15 Labs/Radiology: Radiology Impressions Chest X-Ray 07/05/25 08:02 IMPRESSION: 1. Endotracheal tube overlies the trachea with the tip 4.5 cm above the chaitanya in satisfactory position. 2. Enteric tube is noted with the tip at the GE junction. Consider advancing 15 cm. 3. Low lung volumes are present, accentuating pulmonary markings. Laboratory Results WBC 12.34 10^3/uL (3.29-11.43) H 07/05/25 08:15 RBC 4.28 10^6/uL (3.85-5.65) 07/05/25 08:15 Hgb 13.30 g/dL (11.27-16.99) 07/05/25 08:15 Hct 42.5 % (36-47) 07/05/25 08:15 MCV 99.3 fl (85-98) H 07/05/25 08:15 MCH 31.1 pg (27-33) 07/05/25 08:15 MCHC 31.3 g/dL (30-55) 07/05/25 08:15 RDW 13.0 % (12.1-15.1) 07/05/25 08:15 Plt Count 252 10^3/cmm (157-399) 07/05/25 08:15 MPV 10.0 fL (7.4-10.4) 07/05/25 08:15 Neut % (Auto) 86.1 % 07/05/25 08:15 Lymph % (Auto) 9.5 % 07/05/25 08:15 Wharton % (Auto) 2.8 % 07/05/25 08:15 Eos % (Auto) 0.5 % 07/05/25 08:15 Baso % (Auto) 0.3 % 07/05/25 08:15 Neut # (Auto) 10.63 10^3/uL (1.8-7.7) H 07/05/25 08:15 Lymph # (Auto) 1.2 10^3/uL (0.8-4.8) 07/05/25 08:15 Wharton # (Auto) 0.3 10^3/uL (0.2-0.9) 07/05/25 08:15 Eos # (Auto) 0.1 10^3/uL (0.0-0.8) 07/05/25 08:15 Baso # (Auto) 0.0 10^3/uL (0.0-0.1) 07/05/25 08:15 Nucleated RBC % (auto) 0 % 07/05/25 08:15 Nucleated RBCs # 0.0 /100WBC 07/05/25 08:15 Specimen Type Arterial 07/05/25 08:21 Sample Site Radial, left 07/05/25 08:21 ABG pH 7.12 (7.35-7.45) L* 07/05/25 08:21 ABG pCO2 68.6 mmHg (35-45) H* 07/05/25 08:21 ABG pO2 490.0 mmHg (80.0-100.0) H 07/05/25 08:21 ABG PO2/FiO2 Ratio 490 07/05/25 08:21 ABG HCO3 22.4 mmol/L (22-26) 07/05/25 08:21 ABG O2 Saturation > 99.1 07/05/25 08:21 ABG Base Excess -8.0 mmol/L (-2.0-2.0) L 07/05/25 08:21 Diego Test Pos 07/05/25 08:21 A-a O2 Gradient 18.0 mmHg (5-10) H 07/05/25 08:21 Hematocrit 41.3 % (37-47) 07/05/25 08:21 Hgb O2 Saturation 97.2 % (95-100) 07/05/25 08:21 Carboxyhemoglobin 1.3 %THgb (0.4-20.1) 07/05/25 08:21 Methemoglobin 1.2 % (0.4-1.5) 07/05/25 08:21 Total Hemoglobin 13.5 g/dL (12-16) 07/05/25 08:21 Sodium 141.0 mmol/L (131-143) 07/05/25 08:21 Potassium 4.0 mmol/L (3.5-5.0) 07/05/25 08:21 Glucose 213.0 mg/dL (70-115) H 07/05/25 08:21 Ionized Calcium 1.1 mmol/L (1.1-1.4) 07/05/25 08:21 O2 Delivery Device Vent 07/05/25 08:21 FiO2 100.0 % 07/05/25 08:21 Tidal Volume 0.38 07/05/25 08:21 PEEP 8.0 cmH20 07/05/25 08:21 Electrical And Instrument Technician ID Phoebe 07/05/25 08:21 Sodium 141 mmol/L (136-145) 07/05/25 08:15 Potassium 4.7 mmol/L (3.5-5.1) 07/05/25 08:15 Chloride 106 mmol/L (98-107) 07/05/25 08:15 Carbon Dioxide 25 mmol/L (22-29) 07/05/25 08:15 Anion Gap 14.7 (5-19) 07/05/25 08:15 BUN 16 mg/dL (8-23) 07/05/25 08:15 Creatinine 1.0 mg/dL (0.5-0.9) H 07/05/25 08:15 GFR Calculation Not Reportable 07/05/25 08:15 Glucose 243 mg/dL (65-115) H 07/05/25 08:15 Calculated Osmolality 301 mOsm/kg (285-295) H 07/05/25 08:15 Lactic Acid 1.9 mmol/L (0.5-2.2) 07/05/25 08:15 Calcium 8.4 mg/dL (8.5-10.5) L 07/05/25 08:15 Total Bilirubin 0.3 mg/dL (0.15-1.2) 07/05/25 08:15 AST 204 U/L (0-32) H 07/05/25 08:15 ALT 146 U/L (0-33) H 07/05/25 08:15 Alkaline Phosphatase 113 U/L (35-105) H 07/05/25 08:15 Troponin T Baseline 80 ng/L (0-10) H 07/05/25 08:15 Total Protein 5.6 g/dL (6.6-8.7) L 07/05/25 08:15 Albumin 3.8 g/dL (3.5-5.2) 07/05/25 08:15 Globulin 1.8 g/dL (1.3-4.6) 07/05/25 08:15 Procalcitonin 0.19 ng/mL (0-0.5) 07/05/25 08:15 Urine Color Yellow (Yellow) 07/05/25 08:15 Urine Appearance Clear (CLEAR) 07/05/25 08:15 Urine pH 5.5 (5-7) 07/05/25 08:15 Ur Specific Challenge 1.017 (1.005-1.030) 07/05/25 08:15 Urine Protein 2+ (Negative) A 07/05/25 08:15 Urine Glucose (UA) Trace (Normal) H 07/05/25 08:15 Urine Ketones Negative (Negative) 07/05/25 08:15 Urine Blood 1+ (Negative) A 07/05/25 08:15 Urine Nitrate Negative (Negative) 07/05/25 08:15 Urine Bilirubin Negative (Negative) 07/05/25 08:15 Urine Urobilinogen 1.0 mg/dL (Negative) 07/05/25 08:15 Ur Leukocyte Esterase Negative (Negative) 07/05/25 08:15 Urine RBC 3-5 /hpf (0-2) 07/05/25 08:15 Urine WBC 0-5 /hpf (0-5) 07/05/25 08:15 Ur Squamous Epith Cells 0-5 /hpf (0-5) 07/05/25 08:15 Amorphous Sediment Not Reportable 07/05/25 08:15 Urine Bacteria None seen /hpf (NONE) 07/05/25 08:15 Hyaline Casts 12.81 /lpf 07/05/25 08:15 Influenza A (PCR) Negative (Negative) 07/05/25 08:15 Influenza Type B (PCR) Negative (Negative) 07/05/25 08:15 RSV (PCR) Negative (Negative) 07/05/25 08:15 SARS-CoV-2 (PCR) Negative (Negative) 07/05/25 08:15 All radiology interpretation(s) finalized by discharge Discharge Plan Discharge Patient Disposition: Admitted As Inpatient Clinical Impression: Acute hypoxemic respiratory failure, COPD with acute exacerbation, Sepsis, Fever, Hypotension Condition: Stable Coding Level of Care Code ED Retail Salesman for Lazaro Rojas
[2025-07-05 08:25] LABS: Hematocrit 42.5 % (36-47); Hemoglobin 13.30 g/dL (11.27-16.99); Mean Corpuscular HGB Conc 31.3 g/dL (30-55); Mean Corpuscular Hemoglobin 31.1 pg (27-33); Mean Corpuscular Volume 99.3 fl (85-98); Nucleated Red Blood Cells % 0 %; Platelet Count 252 10^3/cmm (157-399); Red Blood Count 4.28 10^6/uL (3.85-5.65); White Blood Count 12.34 10^3/uL (3.29-11.43)
[2025-07-05 08:31] LABS: ABG PCO2 68.6 mmHg (35-45); ABG PH Result 7.12 (7.35-7.45); Alveolar-Arterial Oxygen Gradi 18.0 mmHg (5-10); Arterial Blood Gas Hematocrit 41.3 % (37-47); Blood Gas Allen Test Pos; Blood Gas Operator Identificat WALCI; Blood Gas Sample Site Radial, left; Blood Gas Sample Type Arterial; Blood Gas Tidal Volume 0.38; Carboxyhemoglobin 1.3 %THgb (0.4-20.1); Glucose Level-ABG 213.0 mg/dL (70-115); HCO3 ABG 22.4 mmol/L (22-26); Ionized Calcium Level - ABG 1.1 mmol/L (1.1-1.4); Methemoglobin 1.2 % (0.4-1.5); Oxygen Saturation ABG > 99.1; PEEP 8.0 cmH20; PO2 ABG 490.0 mmHg (80.0-100.0); PO2 FiO2 Ratio Arterial Blood 490; Potassium Level - ABG 4.0 mmol/L (3.5-5.0); Sodium Level - ABG 141.0 mmol/L (131-143)
[2025-07-05] MEDS: linezolid premix 600 MG/300 ML PREMIX 300 MG IV (08:33)
[2025-07-05 08:34] LABS: Glucose Urine UA Trace (Normal); Nitrate Urine Negative (Negative); Specific Gravity, Urine 1.017 (1.005-1.030)
[2025-07-05] MEDS: acetaminophen 1,000 MG/100 ML PIGGYBACK 400 MG IV (08:34)
[2025-07-05 08:39] LABS: Universal Test for UA Present (0)
[2025-07-05 08:47] LABS: Lactic Sepsis W/Reflex 1.9 mmol/L (0.5-2.2)
[2025-07-05 08:48] LABS: Alanine Aminotransferase 146 U/L (0-33); Albumin Level 3.8 g/dL (3.5-5.2); Alkaline Phosphatase 113 U/L (35-105); Anion Gap 14.7 (5-19); Aspartate Amino Transferase 204 U/L (0-32); Blood Urea Nitrogen 16 mg/dL (8-23); Calcium 8.4 mg/dL (8.5-10.5); Carbon Dioxide 25 mmol/L (22-29); Chloride 106 mmol/L (98-107); Globulin 1.8 g/dL (1.3-4.6); Glucose 243 mg/dL (65-115); Osmolality Calculated 301 mOsm/kg (285-295); Potassium 4.7 mmol/L (3.5-5.1); Sodium 141 mmol/L (136-145); Total Protein 5.6 g/dL (6.6-8.7)
[2025-07-05 08:50] LABS: Troponin(5th) Baseline 80 ng/L (0-10)
[2025-07-05 08:54] LABS: Procalcitonin 0.19 ng/mL (0-0.5)
[2025-07-05 08:59] LABS: UA Slide Review UA Slide Review Perf
[2025-07-05 09:06] LABS: Respiratory Syncytial Virus Ce NEGATIVE (Negative); SARS-CoV-2 PCR NEGATIVE (Negative)
--- NOTE | 2025-07-05 09:25 | CTR_ITS ---
PROCEDURE INFORMATION: Exam: CTA Chest With Contrast Exam date and time: 07/05/2025 11:20 AM Age: 69 years old Clinical indication: Other: Respiratory failure TECHNIQUE: Imaging protocol: Computed tomographic angiography of the chest with contrast. Exam focused on the arteries. 3D rendering (Not supervised by radiologist): MIP and/or 3D reconstructed images were created by the technologist. Radiation optimization: All CT scans at this facility use at least one of these dose optimization techniques: automated exposure control; mA and/or kV adjustment per patient size (includes targeted exams where dose is matched to clinical indication); or iterative reconstruction. Contrast material: [id number]; Contrast volume: 100 ml; Contrast route: INTRAVENOUS (IV); COMPARISON: CT lung screening [id number] 05/23/2025 3:49 PM RADIATION DOSE METRICS: Total DLP (mGy-cm): 385.8 FINDINGS: Tubes, catheters and devices: Endotracheal tube is in place. The distal tip projects superior to the chaitanya. Nasogastric tube is in place. The distal tip terminates in the cardia of the stomach. Pulmonary arteries: There is no definite pulmonary arterial filling defect appreciated. The main pulmonary artery is normal in caliber. Aorta: The thoracic aorta is normal in caliber with mild marginal atherosclerotic calcification. Thyroid: There is multinodular thyroid goiter. Discrete thyroid nodules are not well delineated today given the phase of contrast. Lungs: There is smooth wall bronchial thickening present throughout. Mild posterior bibasilar atelectasis is present. There is some isolated regions of ground-glass opacity within the dorsal aspect of the left upper lobe and patchy in more centrally throughout the right lower lobe. There is very mild architectural changes of centrilobular emphysema. Pleural spaces: Unremarkable. No pneumothorax. No pleural effusion. Heart: Unremarkable. No cardiomegaly. No pericardial effusion. Coronary arteries: There is coronary artery calcification. Lymph nodes: Unremarkable. No enlarged lymph nodes. Gallbladder and biliary ducts: There is mild gallbladder distension with cholelithiasis. Bones/joints: There is dextroscoliosis of the thoracic spine. There is no acute osseous abnormality seen. There is a chronic inferior endplate compression fracture deformity of the L1 vertebral body with 20% height loss, stable. 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 Soft tissues: Unremarkable. CT/CT angio chest PE protcl [id number] IMPRESSION: 1. No definite CTA evidence of pulmonary embolus. 2. Bronchitis 3. Patchy ground-glass opacity likely inflammatory in nature/multifocal pneumonia. 4. Very mild architectural changes of centrilobular emphysema. 5. Cholelithiasis with gallbladder distension. 6. Multinodular goiter. Consider thyroid ultrasound if not recently performed. COMMENTS: 1. Consistent with the [employer]'s Incidental Findings Committee white paper (J Am Delbert Radiol 2015): In patients aged 35 years and older with an incidental thyroid nodule equal to or greater than 1.[address], MRI or extrathyroidal US, further evaluation with dedicated thyroid US is recommended for patients with normal life expectancy and without comorbidities. For smaller nodules without suspicious features, no further evaluation or follow up is recommended. 2. The presence of pulmonary emphysema on CT is an independent risk factor for lung cancer. In the absence of a history or active diagnosis of lung cancer, it is recommended that this patient with emphysema be evaluated for enrollment in a low dose CT lung cancer screening program.
[2025-07-05 09:34] LABS: ABG PCO2 57.3 mmHg (35-45); ABG PH Result 7.17 (7.35-7.45); Alveolar-Arterial Oxygen Gradi 11.1 mmHg (5-10); Arterial Blood Gas Hematocrit 40.1 % (37-47); Blood Gas Allen Test Pos; Blood Gas Sample Site Radial, left; Blood Gas Sample Type Arterial; Blood Gas Tidal Volume 0.40; Carboxyhemoglobin 1.5 %THgb (0.4-20.1); Glucose Level-ABG 252.0 mg/dL (70-115); HCO3 ABG 20.7 mmol/L (22-26); Ionized Calcium Level - ABG 1.1 mmol/L (1.1-1.4); Methemoglobin 1.3 % (0.4-1.5); Oxygen Saturation ABG 98.4; PEEP 8.0 cmH20; PO2 ABG 131.0 mmHg (80.0-100.0); PO2 FiO2 Ratio Arterial Blood 327; Potassium Level - ABG 3.9 mmol/L (3.5-5.0); Sodium Level - ABG 138.0 mmol/L (131-143)
--- NOTE | 2025-07-05 10:02 | ECG_ITS ---
[facility] Test Date: 2025-07-05 Pat Name: Shreya Salazar Department: Room: ICU12 Gender: Female Timing Adjuster: : 1955 Requested By: Kelin Up Order Number: [id number] Alize MD: Ely Hartman M.D. Measurements Intervals [place] Rate: 85 P: 70 OR: 173 QRS: 83 QRSD: 88 T: 97 QT: 406 QTc: 485 Interpretive Statements SINUS RHYTHM LOW QRS VOLTAGE IN PRECORDIAL LEADS POSSIBLE RIGHT VENTRICULAR CONDUCTION DELAY [RSR (QR) IN V1/V2] MINIMAL ST DEPRESSION [0.025+ mV ST DEPRESSION] Compared to ECG 07/05/2025 08:04:49 Low QRS voltage now present ST (T wave) deviation now present Incomplete right bundle-branch block no longer present Electronically Signed On 07-06-2025 18:03:52 SENIOR FRONT END DEVELOPER by Ely Hartman M.D. [email or web address]
--- NOTE | 2025-07-05 10:12 | USCV_ITS ---
Shreya Salazar Age: 69 Gender: F : 1955 Exam Date: 07/05/2025 13:39 Ordering Phys: Mark Jaramillo MD Technologist: LOVE Exam Location: [facility] [place] Indication: respiratory failure, History of COPD, chronic resp failure, CKD, HT, prior VT, long-term smoker continues smoking. BP: 191 / 128 HR: 79 Rhythm: Sinus Technical Quality: Suboptimal, Poor secondary to COPD MEASUREMENTS (Male / Female) Normal Values 2D ECHO LV Diastolic Diameter PLAX 5.6 cm 4.2 - 5.9 / 3.9 - 5.3 cm IVS Diastolic Thickness 2.2 cm 0.6 - 1.0 / 0.6 - 0.9 cm IVS Systolic Thickness 1.9 cm LVPW Diastolic Thickness 1.3 cm 0.6 - 1.0 / 0.6 - 0.9 cm LVPW Systolic Thickness 1.1 cm LVOT Diameter 1.8 cm LV Ejection Fraction 2D Teich 26.7 % LV Ejection Fraction MOD 4C 57.1 % LV Ejection Fraction MOD 2C 48.7 % LV Ejection Fraction 2C AL 48.2 % LA Diameter 3.5 cm Aorta at Sinotubular Diameter 2.4 cm IVC Diameter 2.4 cm M-MODE LA Ao Ratio MM 1.2 AV Cusp Separation MM 1.6 cm DOPPLER AV Peak Velocity 123.0 cm/s LVOT Peak Velocity 80.0 cm/s AV Area Cont Eq vti 1.6 cm squared AV Area Cont Eq pk 1.6 cm squared MV Peak Velocity 96.0 cm/s MV Area PHT 3.8 cm squared Mitral E to A Ratio 0.8 TV Peak E Velocity 42.0 cm/s FINDINGS Left Ventricle Mildly dilated LV cavity with moderately reduced LV systolic function. Severe hypokinesis of inferior and inferoseptal and inferolateral wall segments. Overall estimated LVEF 45%. Right Ventricle Normal right ventricular size and systolic function. Right Atrium Mildly increased right atrial size. Left Atrium Mildly increased left atrial size. IA Septum Normal interatrial septum. Mitral Valve Thickened mitral valve. Mild mitral annular calcification. Mild mitral valve regurgitation. Aortic Valve Thickened aortic valve. No aortic valve stenosis. Tricuspid Valve Tricuspid valve not well visualized. Unable to assess the Doppler measurement across tricuspid valve. Pulmonic Valve Pulmonic valve not well visualized. Pericardium No pericardial effusion. Aorta Normal aortic annulus size. IVC Dilated IVC. CONCLUSIONS Technically difficult echo with suboptimal images. Patient with respiratory failure and in ICU. Mildly dilated LV cavity with moderately reduced LV systolic function. LVEF estimated at 45%. Wall motion abnormalities as above Right ventricle appears to be of normal size with normal RV systolic function. Mild mitral regurgitation. With the suboptimal images right heart and pulmonary pressure could not be assessed accurately. Ely Hartman MD (Electronically Signed) Final Date: 06 July 2025 13:09 S
--- NOTE | 2025-07-05 10:41 | XRR_ITS ---
PROCEDURE INFORMATION: Exam: XR Chest Exam date and time: 07/05/2025 10:42 AM Age: 69 years old Clinical indication: Device placement; Picc; Additional info: Picc line placement TECHNIQUE: Imaging protocol: Radiologic exam of the chest. Views: 1 view. COMPARISON: CR XR chest 1V portable [id number] 07/05/2025 8:06 AM FINDINGS: Tubes, catheters and devices: Endotracheal tube remains in place midline. The distal tip terminates 5 cm superior to the chaitanya. Nasogastric tube remains in place. The distal tip terminates in the expected region of the cardia of the stomach. Of note the side-hole of the catheter is positioned just proximal to the expected region of the GE junction. Right upper extremity PICC is in place. The distal tip projects in the expected region of the distal 1/3 of the SVC. Lungs: There is mild bilateral interstitial perihilar congestion. No dense consolidation is appreciated. Pleural spaces: Unremarkable. No pleural effusion. No pneumothorax. Heart/Mediastinum: The cardiac silhouette is at the upper limits of normal. Bones/joints: Unremarkable. XR/XR chest 1V portable [id number] IMPRESSION: 1. Support tubing is defined including new right upper extremity PICC as detailed 2. Mild perihilar vascular congestion
[2025-07-05] MEDS: vecuronium 10 mg SDV (11:05)
[2025-07-05] MEDS: iohexol 350 mg/mL 500 mL Btl (per mL) IV (11:30)
--- NOTE | 2025-07-05 11:40 | PC.NURSE ---
pt biting at ET tube, moving during PICC insertion. respiratory at bedside to assist in ventilation; verbal order of 10mg Vecuronium per Dr. Rodas. this nurse attempted to contact hospitalist for further sedation orders. Versed increased to 6mg/mL /hour.
--- NOTE | 2025-07-05 11:55 | PHA.VACGOAL ---
Vancomycin Goal - Goal Vancomycin Goal:: 15-20 mg/L Vancomycin Indication:: Pneumonia (POSSIBLE SEPSIS) - Therapy Day of therpy:: Day []of [] . Actual body weight (kg): 140 lb - Data Labs: WBC 12.34 10^3/uL (3.29-11.43) H 07/05/25 08:15 RBC 4.28 10^6/uL (3.85-5.65) 07/05/25 08:15 Hgb 13.30 g/dL (11.27-16.99) 07/05/25 08:15 Hct 42.5 % (36-47) 07/05/25 08:15 MCV 99.3 fl (85-98) H 07/05/25 08:15 MCH 31.1 pg (27-33) 07/05/25 08:15 MCHC 31.3 g/dL (30-55) 07/05/25 08:15 RDW 13.0 % (12.1-15.1) 07/05/25 08:15 Sodium 141 mmol/L (136-145) 07/05/25 08:15 Potassium 4.7 mmol/L (3.5-5.1) 07/05/25 08:15 Chloride 106 mmol/L (98-107) 07/05/25 08:15 Carbon Dioxide 25 mmol/L (22-29) 07/05/25 08:15 Anion Gap 14.7 (5-19) 07/05/25 08:15 BUN 16 mg/dL (8-23) 07/05/25 08:15 Creatinine 1.0 mg/dL (0.5-0.9) H 07/05/25 08:15 GFR Calculation Not Reportable 07/05/25 08:15 Last dialysis session:: N/A Treatment plan:: new consult Regimen:: INITIAL LOADING DOSE OF 2000 MG X 1 MAINTENANCE DOSE OF 500 MG Q12H PER DOSING PROTOCOL. Follow up:: WILL CONTINUE TO MONITOR AND FOLLOW UP DAILY
--- NOTE | 2025-07-05 12:05 | PC.NURSE ---
This nurse, observed by Alejandra Martinez, RN and Honey Lambert RN, placed 6F Triple Lumen BioFlo PICC catheter. Discussed verbal consent with patient's son at bedside and over the phone with double nurse verification to place PICC. Patient intubated at time of order. Assessed patient's R arm, basilic vein appropriate for PICC placement; R basilic vein 3.2 mm in diameter. Device length cut to 40cm, with 5cm external length. EBL <10mL. No complications noted during PICC placement. Blood aspirated from three lumens, tip position confirmed by X-Ray at distal 1/3 SVC . Report given to ICU nurse.
[2025-07-05] MEDS: methylPREDNISolone sod succ 40 mg/mL INJ IVP ×2 (12:21→19:58)
[2025-07-05 12:24] LABS: Estmated Average Glucose 103; Hemoglobin A1C 5.2 % (4.0-6.0)
[2025-07-05 12:30] LABS: ABG PCO2 53.7 mmHg (35-45); ABG PH Result 7.25 (7.35-7.45); Alveolar-Arterial Oxygen Gradi 13.9 mmHg (5-10); Arterial Blood Gas Hematocrit 40.0 % (37-47); Blood Gas Allen Test Pos; Blood Gas Operator Identificat MONRO; Blood Gas Sample Site Brachial, right; Blood Gas Sample Type Arterial; Blood Gas Tidal Volume 0.34; Carboxyhemoglobin 1.6 %THgb (0.4-20.1); Glucose Level-ABG 132.0 mg/dL (70-115); HCO3 ABG 23.5 mmol/L (22-26); Ionized Calcium Level - ABG 1.1 mmol/L (1.1-1.4); Methemoglobin 0.3 % (0.4-1.5); Oxygen Saturation ABG 95.8; PEEP 8.0 cmH20; PO2 ABG 79.6 mmHg (80.0-100.0); PO2 FiO2 Ratio Arterial Blood 227; Potassium Level - ABG 4.5 mmol/L (3.5-5.0); Sodium Level - ABG 136.0 mmol/L (131-143)
[2025-07-05 12:31] LABS: Troponin 5 2HR 117.0 ng/L (0-10); Troponin 5 2HR Delta 37.0 ABS# (0-10)
[2025-07-05 12:33] LABS: Lactic Sepsis W/Reflex 1.1 mmol/L (0.5-2.2)
[2025-07-05] MEDS: propofol 1,000 MG/100 ML INJ 1.91 MG IV (12:36)
[2025-07-05 12:45] LABS: NT Pro B Type Natriuretic Pept 1188 pg/mL (0-125); Procalcitonin 0.69 ng/mL (0-0.5); Thyroid Stimulating Hormone 0.80 uIU/mL (0.27-4.20)
[2025-07-05 12:56] LABS: Cholesterol 132 mg/dL (0-200); HDL Cholesterol 55 mg/dL (60-100); Triglycerides 52 mg/dL (0-150)
--- NOTE | 2025-07-05 13:55 | P.HP_ITS ---
Providers/Chief Complaint 2 Admitting Physician: Mark Jaramillo MD Primary Care Provider: Myron Jacobs, NICOLA-C Chief Complaint: Severe Resp Distress History of Present Illness Shreya Salazar is a 69 year old female with a past medical history of COPD, chronic respiratory failure, chronic kidney disease, history of hypothyroidism, myocardial infarction, who presents [facility] for acute respiratory failure. Currently patient is intubated, sedated on mechanical ventilation, patient's son is at bedside. Who helps with history taking he reports that when needed has a history of COPD, history of smoking, she has been complaining of increased shortness of breath, cough, there is been concerns for possible respiratory tract infection, according to ER provider when EMS arrived onsite she was found to be in acute respiratory distress, and intubated in the field, she received her to be tailing, magnesium, Solu-Medrol, also epinephrine as she had episode of hypotension after she was intubated. Ketamine was used for intubation along with Versed. On arrival her temperature was 100.4 O2 sats in the upper 90s she was bagged through the ET tube, systolic blood pressure in the 120s. Review of Systems 2 General: Reports: ROS unobtainable due to medical condition Medications/Allergies Home Medications ?Medication ?Instructions ?Recorded ?Confirmed ?Last Taken ?Type L.acidop,casei,lactis,rham-B.lact,nikki 1 cap PO .2 time s day #60 caps 01/07/23 07/05/25 Unknown Rx 625 mg (10 billion cell) capsule (Advanced Probiotic) lidocaine 4 % topical spray 1 spray topical .2 times # 113 grams 08/12/23 07/05/25 Unknown Rx (Aspercreme (lidocaine)) inogen oxygen 3L NC #1 ea 03/02/24 07/05/25 Unkn own Rx morphine 30 mg tablet,extended 30 mg PO Q12H 11/25/24 07/05/25 Unknown History release nitroglycerin 0.4 mg sublingual 0.4 mg sublingual Q5M PRN chest 12/08/24 07/05/25 Unknown Rx tablet pain #25 tabs budesonide 160 mcg-glycopyr 9 2 inh inhalation BID #10 .7 grams 04/04/25 07/05/25 Unknown Rx mcg-formot 4.8 mcg/actuation HFA inhaler (Breztri Aerosphere) clonazepam 1 mg tablet (Klonopin) 1 mg PO BID PRN anxi ety #60 tabs 04/04/25 07/05/25 Unknown Rx escitalopram oxalate 20 mg tablet 20 mg PO DAILY #30 t abs 04/04/25 07/05/25 Unknown Rx (Lexapro) potassium chloride 10 mEq 10 meq PO DAILY PRN with flu id 04/04/25 07/05/25 Unknown Rx capsule,extended release pill #30 caps triamcinolone acetonide 0.1 % 1 applic topical BID #80 grams 04/04/25 07/05/25 Unknown Rx topical cream methimazole 5 mg tablet 5 mg PO .COMPLEX #30 tabs 07/05/25 Unknown Rx ipratropium 0.5 mg-albuterol 3 mg 3 ml inhalation Q6H PRN wheezing 05/22/25 07/05/25 Unknown Rx (2.5 mg base)/3 mL nebulization #180 mL soln nebulizers (AeroEclipse II #1 ea 05/22/25 07/05/25 Unk nown Rx Nebulizer) Ventolin HFA 90 mcg/actuation 2 puff inhalation Q4H VT N 06/28/25 07/05/25 Unknown Rx aerosol inhaler (albuterol sulfate) shortness of breat h or wheezing #18 grams diphenoxylate-atropine 2.5 1 tab PO BID PRN diarrhea # 60 tabs 06/28/25 07/05/25 Unknown Rx mg-0.025 mg tablet (Lomotil) baclofen 20 mg tablet 20 mg PO DAILY #30 tabs 06/1107/05/25 Unknown Rx ergocalciferol (vitamin D2) 1,250 1,250 mcg PO .weekly #4 caps 07/04/25 07/05/25 Unknown Rx mcg (50,000 unit) capsule ketorolac 10 mg tablet 10 mg PO DAILY PRN pain #10 tabs 07/04/25 07/05/25 Unknown Rx prednisone 5 mg tablet 5 mg PO DAILY #20 tabs 07/0407/05/25 Unknown Rx Allergies Allergy/AdvReac Type Severity Reaction Status Date / Time Opioids-Meperidine and Allergy Severe Rash and Verified 06/08/25 18:16 Related itching Opioids-Methadone and Related Allergy Severe Itching Verified 06/08/25 18:16 erythromycin base Allergy Intermediate Itching Verified 06/08/25 18:16 Latex, Natural Rubber Allergy Intermediate Itching Verified 06/08/25 18:16 levofloxacin (From Levaquin) Allergy Intermediate Rash Verified 06/08/25 18:16 Tetracyclines Allergy Intermediate Rash Verified 06/08/25 18:16 trimethoprim Allergy Mild Itching Verified 06/08/25 18:16 PFSH Acute 2 PFSH: Medical History CKD (chronic kidney disease) stage 2, GFR 60-89 ml/min Interstitial cystitis Medical marijuana use Psoriasiform dermatitis Vitamin D deficiency History of NV (myocardial infarction) Generalized anxiety disorder Nicotine dependence, unspecified, uncomplicated Insomnia Hyperthyroidism Spondylitis, ankylosing GERD (gastroesophageal reflux disease) COPD (chronic obstructive pulmonary disease) Tobacco abuse Irritable bowel syndrome with diarrhea Surgical History History of thoracic surgery age 12 History of lumbar surgery age 12 History of hysterectomy Family History Father Cancer Mother Cancer Family/Other Cancer Social History Smoking and tobacco/nicotine status: current every day tobacco/nicotine user cigarettes Packs smoked per day: 0.5 Years cigarettes smoked: 52 Quit status (tobacco/nicotine): has tried quititng Number of times tried to quit tobacco: 20 Second hand smoke exposure: No Alcohol intake: never Substance/Drug Use: current Substance/Drug use frequency: daily Caregiver/support person: No Lives independently: Yes Household members: none Housing: Apartment Marital status: / Number of children: 2 Number of grandchildren: 3 service: No Current occupational status: disabled Pets and animals: Yes Pets & animals: cat(s) and dog(s) Do you think of yourself as: Straight/Heterosexual Current gender identity: Female Vitals/I&O/Wt Last Vital Signs Temp 98.2 F 07/05/25 11:30 Pulse 83 07/05/25 13:30 Resp 13 07/05/25 13:30 BP 148/95 07/05/25 13:30 Pulse Ox 96 07/05/25 13:00 O2 Del Method Mechanical Ventilation 07/05/25 12:30 FiO2 35 07/05/25 11:45 07/04/25 07/05/25 07/05/25 22:59 06:59 14:59 Intake Total 2419.913 / 2419.913 Balance 2419.913 / 2419.913 Weight last 48 hrs Weight 63.503 kg Physical Exam 2 Const: COMMON NORMALS: no acute distress HENMT: OTHER: Intubated, sedated on mechanical ventilation Eye: COMMON NORMALS: Equal, round and reactive pupils present and EOMs intact bilaterally Resp: COMMON NORMALS: normal respiratory effort, No retractions, No use of accessory muscles and clear to auscultation bilaterally AUSCULTATION: c rackles and wheezes Cardio: COMMON NORMALS: regular rate, regular rhythm, S1 normal heart sound present and S2 normal heart sound present RATE: regular rate RHYTHM: r egular rhythm HEART SOUNDS: S1 normal heart sound present and S2 normal heart sound present GI: COMMON NORMALS: Normal to inspection, nondistended, normoactive bowel sounds present, Soft to palpation and non-tender Extremity: COMMON NORMALS: no pedal edema Urinary Catheter Management: Finney: Cath Placed During This Visit: yes Urinary Catheter Date of Insertion: 07/05/25 Urinary Catheter Time of Insertion: 08:19 Data 07/05/25 08:15 07/05/25 08:15 Micro: Microbiology 07/05/25 08:43 Blood Culture - Preliminary Blood SPECIMEN COLLECTED 07/05/25 08:15 Blood Culture - Preliminary Blood SPECIMEN COLLECTED A&P Assessment and plan 1. Acute hypoxic respiratory failure: 2. Sepsis: 3. COPD with acute exacerbation: 4. Pneumonia: 5. Transaminitis: 6. NSTEMI (non-ST elevated myocardial infarction): Plan: Acute hypoxic respiratory failure - Secondary to COPD exacerbation -secondary to pneumonia - With evidence of sepsis - With evidence of NSTEMI Plan -Currently intubated, sedated on mechanical ventilation - Versed for sedation -Precedex for sedation - Patient is chronically morphine 30 extended release mg twice daily for chronic back pain, scheduled, according to family for many years, to avoid withdrawal will start her on morphine 15 mg every 6 hours -Patient is on clonazepam 1 mg twice daily for many years, but she takes it as needed - Consult pulmonary - Minimize PEEP, minimize FiO2 - Vancomycin - Meropenem - Blood cultures - Sputum cultures - Solu-Medrol 40 mg IV every 8 hours - Therapeutic Lovenox even NSTEMI as above - Cardiac echo - Aspirin, statin - Maintain MAP more than 65 - Full code - Lovenox for DVT prophylaxis PDMP PDMP Reviewed: Last Reviewed 07/05/25 13:11 by Mark Jaramillo MD Attestations 2 Medical Necessity Statement*: Patient requires hospitalization for acute hypoxic respiratory failure, with sepsis secondary to pneumonia, acute hypoxic respiratory failure, NSTEMI, COPD exacerbation, greater than 2 midnights Diagnoses Acute hypoxic respiratory failure J96.01 Sepsis A41.9 COPD with acute exacerbation J44.1 Pneumonia J18.9 Transaminitis R74.01 NSTEMI (non-ST elevated myocardial infarction) I21.4 Sepsis Event Note ED Sepsis Screening 2 Sepsis Screen No Definite Risk Today, 11:00 Quick SOFA Score 0 Today, 11:00 If qSOFA score 2 or greater, continue SOFA Score: 2 ABG PO2/FiO2 Ratio 227 Today, 12:17 [place] Coma Scale Score 3 Today, 13:28 Blood Pressure Mean 112 mmHg Today, 13:30 Total Bilirubin, (0.15-1.2) 0.3 mg/dL Today, 08:15 Platelet Count, (157-399) 252 10^3/cmm Today, 08:15 Creatinine, (0.5-0.9) 1.0 mg/dL H Today, 08:15 PaO2/FiO2 Ratio (mmHg): 227 [place] coma scale: 3 Blood Pressure Mean: 112 Bilirubin (mg/dl): 0.3 Platelets (x10?/ml): 252 Creatinine (mg/dl): 1.0 SOFA Score: 6 Evaluation Current stage of sepsis: sepsis Sepsis stage criteria used: CMS Sep-1 and Sepsis-3 Crystalloid fluids: 30 mL/kg crystalloid fluids ordered and initiated within 3 hours Blood cultures ordered: Yes Focused Exam Vital signs: Temp Pulse Resp BP Pulse Ox O2 Del Method FiO2 07/05/25 13:30 83 13 148/95 07/05/25 13:28 Mechanical Ventilation 11/26/25 13:15 83 13 105/70 07/05/25 13:00 77 13 142/119 96 07/05/25 12:30 84 13 110/70 95 Mechanical Ventilation 07/05/25 12:15 82 13 128/77 94 07/05/25 11:45 88 13 100/70 95 Mechanical Ventilation 35 07/05/25 11:39 13 95 35 07/05/25 11:30 98.2 F 84 13 128/77 95 Mechanical Ventilation 30 07/05/25 11:00 94 18 137/97 95 07/05/25 10:52 14 95 35 07/05/25 10:50 100 14 93 Mechanical Ventilation 35 07/05/25 10:45 105 H 29 H 172/104 93 07/05/25 10:30 107 H 32 H 174/119 07/05/25 10:18 12 93 30 07/05/25 10:15 99 28 H 132/81 93 07/05/25 10:14 12 95 30 07/05/25 10:00 93 16 148/90 94 07/05/25 09:45 93 14 148/86 95 07/05/25 09:30 92 15 116/67 07/05/25 09:15 91 15 108/65 100 07/05/25 09:00 90 15 108/67 97 07/05/25 08:58 91 17 108/67 100 07/05/25 08:40 91 17 113/68 99 Mechanical Ventilation 07/05/25 08:38 13 40 07/05/25 08:23 93 12 100 Mechanical Ventilation 100 07/05/25 08:22 12 100 07/05/25 08:08 100.4 F H 94 128/94 100 Mechanical Ventilation 07/05/25 07:57 94 16 125/84 100 Mechanical Ventilation Respiratory exam: crackles present Cardiovascular Exam: regular rate and regular rhythm Capillary refill: > 3 Seconds Peripheral pulse strength: 2+ Slightly Diminished Peripheral pulse location: Radial and Pedal Skin exam: turgor normal Date exam was performed: 07/05/25 Time exam was performed: 14:09 Problem List 1. Acute hypoxic respiratory failure: 2. Sepsis: 3. COPD with acute exacerbation: 4. Pneumonia: 5. Transaminitis: 6. NSTEMI (non-ST elevated myocardial infarction):
[2025-07-05 15:00] LABS: Troponin 5 6HR 154.2 ng/L (0-10); Troponin 5 6HR Delta 74.2 ng/L (0-12)
[2025-07-05] MEDS: dexmedeTOMIDine 0.9 % NaCL 400 MCG/100 ML PREMIX IV (15:08)
--- NOTE | 2025-07-05 15:45 | ECG_ITS ---
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 Measurements Intervals [place] Rate: 92 P: 67 MD: 161 QRS: 80 QRSD: 89 T: 95 QT: 397 QTc: 492 Interpretive Statements SINUS RHYTHM POSSIBLE RIGHT VENTRICULAR CONDUCTION DELAY [RSR (QR) IN V1/V2] Compared to ECG 07/05/2025 11:39:54 ST (T wave) deviation no longer present Electronically Signed On 07-06-2025 18:00:51 COUNTER TENDER by Ely Hartman M.D. [email or web address]
--- NOTE | 2025-07-05 15:46 | PM.CONSULT ---
Providers/Reason For Consult Consulting Physician/Specialty*: Dr. Flores Reason for Consult*: Mechanical ventilation Attending Physician: Mark Jaarmillo MD Primary Care Provider: SLOAN Terry History of Present Illness History of Present Illness Shreya Salazar is a 69 year old female with past medical history of asthma and COPD, chronic respiratory failure, chronic kidney disease, previous IA presents initially to [facility] with shortness of cassandra. Th and cough. She was found to be in acute respiratory distress and was emergently intubated in ER she was given magnesium Solu-Medrol and epinephrine. Due to hypotension Levophed was started. She is on Versed and Precedex currently since she cannot tolerate opioids. She has extensive allergies. She has already been on the ventilator Medications/Allergies Home Medications ?Medication ?Instructions ?Recorded ?Confirmed ?Last Taken ?Type L.acidop,casei,lactis,rham-B.lact,nikki 1 cap PO .2 times day #60 caps 01/07/23 07/05/25 Unknown Rx 625 mg (10 billion cell) capsule (Advanced Probiotic) lidocaine 4 % topical spray 1 spray topical .2 times #113 grams 08/12/23 07/05/25 Unknown Rx (Aspercreme (lidocaine)) inogen oxygen 3L NC #1 ea 03/02/24 07/05/25 Unknown Rx morphine 30 mg tablet,extended 30 mg PO Q12H 11/25/24 07/05/25 Unknown History release nitroglycerin 0.4 mg sublingual 0.4 mg sublingual Q5M PRN chest 12/08/24 07/05/25 Unknown Rx tablet pain #25 tabs budesonide 160 mcg-glycopyr 9 2 inh inhalation BID #10.7 grams 04/04/25 07/05/25 Unknown Rx mcg-formot 4.8 mcg/actuation HFA inhaler (Breztri Aerosphere) clonazepam 1 mg tablet (Klonopin) 1 mg PO BID PRN anxiety #60 tabs 04/04/25 07/05/25 Unknown Rx escitalopram oxalate 20 mg tablet 20 mg PO DAILY #30 tabs 04/04/25 07/05/25 Unknown Rx (Lexapro) potassium chloride 10 mEq 10 meq PO DAILY PRN with fluid 04/04/25 07/05/25 Unknown Rx capsule,extended release pill #30 caps triamcinolone acetonide 0.1 % 1 applic topical BID #80 grams 04/04/25 07/05/25 Unknown Rx topical cream methimazole 5 mg tablet 5 mg PO .COMPLEX #30 tabs 04/25/25 07/05/25 Unknown Rx ipratropium 0.5 mg-albuterol 3 mg 3 ml inhalation Q6H PRN wheezing 05/22/25 07/05/25 Unknown Rx (2.5 mg base)/3 mL nebulization #180 mL soln nebulizers (AeroEclipse II #1 ea 05/22/25 07/05/25 Unknown Rx Nebulizer) Ventolin HFA 90 mcg/actuation 2 puff inhalation Q4H PRN 06/28/25 07/05/25 Unknown Rx aerosol inhaler (albuterol sulfate) shortness of breath or wheezing #18 grams diphenoxylate-atropine 2.5 1 tab PO BID PRN diarrhea #60 tabs 06/28/25 07/05/25 Unknown Rx mg-0.025 mg tablet (Lomotil) baclofen 20 mg tablet 20 mg PO DAILY #30 tabs 07/04/25 07/05/25 Unknown Rx ergocalciferol (vitamin D2) 1,250 1,250 mcg PO .weekly #4 caps 07/04/25 07/05/25 Unknown Rx mcg (50,000 unit) capsule ketorolac 10 mg tablet 10 mg PO DAILY PRN pain #10 tabs 07/04/25 07/05/25 Unknown Rx prednisone 5 mg tablet 5 mg PO DAILY #20 tabs 07/04/25 07/05/25 Unknown Rx Allergies Allergy/AdvReac Type Severity Reaction Status Date / Time Opioids-Meperidine and Allergy Severe Rash and Verified 06/08/25 18:16 Related itching Opioids-Methadone and Related Allergy Severe Itching Verified 06/08/25 18:16 erythromycin base Allergy Intermediate Itching Verified 06/08/25 18:16 Latex, Natural Rubber Allergy Intermediate Itching Verified 06/08/25 18:16 levofloxacin (From Levaquin) Allergy Intermediate Rash Verified 06/08/25 18:16 Tetracyclines Allergy Intermediate Rash Verified 06/08/25 18:16 trimethoprim Allergy Mild Itching Verified 06/08/25 18:16 Current Medications Generic Name Dose Route Start Last Admin Trade Name Freq PRN Reason Stop Dose Admin Albuterol/Ipratropium 3 ml 07/05/25 12:00 07/05/25 15:27 Ipratropium-Albuterol 3 Ml Neb INHALATION 3 ml Q4H.RESPIRATORY DANIEL Administration Aspirin 81 mg 07/05/25 14:15 07/05/25 14:27 Aspirin 81 Mg Ec Tablet PO 81 mg DAILY DANIEL Administration Famotidine 20 mg 07/05/25 11:45 07/05/25 12:21 Famotidine 20 Mg/2 Ml Inj IVP 20 mg Q12H DANIEL Administration Midazolam HCl 100 mg in 100 mls @ 0 mls/hr 07/05/25 08:15 07/05/25 14:37 Versed IV 5 mg/hr .Q0M DANIEL 5 mls/hr Protocol Titration Per Protocol Propofol 1,000 mg in 100 mls @ 0 mls/hr 07/05/25 11:45 07/05/25 13:12 Diprivan IV 0 mcg/kg/min .Q0M DANIEL 0 mls/hr Protocol Titration Per Protocol Dexmedetomidine/Sodium Chloride 400 mcg in 100 mls @ 0 mls/hr 07/05/25 13:15 07/05/25 15:08 Precedex IV 0.1 mcg/kg/hr .Q0M DANIEL 1.59 mls/hr Protocol Administration Per Protocol Meropenem 500 mg 07/05/25 15:30 07/05/25 14:30 Meropenem 500 Mg Sdv IVP 500 mg Q8H DANIEL Administration Protocol Methylprednisolone Sodium Succinate 40 mg 07/05/25 11:45 07/05/25 12:21 Methylprednisolone Sod Succ 40 Mg/Ml Inj IVP 40 mg Q8H DANIEL Administration Morphine Sulfate 15 mg 07/05/25 13:30 07/05/25 14:27 Morphine Ir 15 Mg Tablet PO 15 mg Q6H DANIEL Administration PFSH Acute PFSH: Medical History (Updated 07/05/25 @ 14:12 by Mark Jaramillo MD) CKD (chronic kidney disease) stage 2, GFR 60-89 ml/min Interstitial cystitis Medical marijuana use Psoriasiform dermatitis Vitamin D deficiency History of IA (myocardial infarction) Generalized anxiety disorder Nicotine dependence, unspecified, uncomplicated Insomnia Hyperthyroidism Spondylitis, ankylosing GERD (gastroesophageal reflux disease) COPD (chronic obstructive pulmonary disease) Tobacco abuse Irritable bowel syndrome with diarrhea Surgical History History of thoracic surgery age 12 History of lumbar surgery age 12 History of hysterectomy Family History Father Cancer Mother Cancer Family/Other Cancer Social History Smoking and tobacco/nicotine status: current every day tobacco/nicotine user cigarettes Packs smoked per day: 0.5 Years cigarettes smoked: 52 Quit status (tobacco/nicotine): has tried quititng Number of times tried to quit tobacco: 20 Second hand smoke exposure: No Alcohol intake: never Substance/Drug Use: current Substance/Drug use frequency: daily Caregiver/support person: No Lives independently: Yes Household members: none Housing: Apartment Marital status: / Number of children: 2 Number of grandchildren: 3 service: No Current occupational status: disabled Pets and animals: Yes Pets & animals: cat(s) and dog(s) Do you think of yourself as: Straight/Heterosexual Current gender identity: Female Vitals/I&O/Wt Last Vital Signs Temp 98.2 F 07/05/25 11:30 Pulse 102 H 07/05/25 15:31 Resp 15 07/05/25 15:41 BP 148/95 07/05/25 13:30 Pulse Ox 97 07/05/25 15:41 O2 Del Method Mechanical Ventilation 07/05/25 15:31 FiO2 35 07/05/25 15:41 07/05/25 07/05/25 07/05/25 06:59 14:59 22:59 Intake Total 2426.380 / 2426.380 Balance 2426.380 / 2426.380 Weight last 48 hrs Weight 166 lb 7.184 oz Weight 140 lb Physical Exam Narrative: Per RN General: Intubated awake HEENT: EOMI Pulmonary: Wheezing bilaterally Cardiovascular: rrr, nl s1s2, Abdomen: soft, nt, nd, no r/g, Extremities: no edema Neurologic: grossly intact Agree with above exam Urinary Catheter Management: Finney: Cath Placed During This Visit: yes Reason for Continuing Indwelling Catheter: Accurate Measurement of Urinary Output in Critically Ill Patients Urinary Catheter Date of Insertion: 07/05/25 Urinary Catheter Time of Insertion: 08:19 Data 07/05/25 08:15 07/05/25 08:15 Micro: Microbiology 07/05/25 08:43 Blood Culture - Preliminary Blood SPECIMEN COLLECTED 07/05/25 08:15 Blood Culture - Preliminary Blood SPECIMEN COLLECTED A&P Assessment and plan 1. Tobacco abuse: 2. COPD (chronic obstructive pulmonary disease): 3. Acute hypoxemic respiratory failure: 4. COPD with acute exacerbation: Plan: # Acute on chronic hypoxemic hypercarbic respiratory failure -Reviewed patient's ABG initially was 7.12. Instructed nurse to give 2 pushes of bicarb. Looks like mixed acute metabolic on chronic hypercapnic respiratory acidosis. Continue ventilator support and wean as needed. Discussed with RT will increase PEEP secondary to auto PEEP. Inspiratory loop hold if targeting shows up plateau of 24 and a PEEP of 31. Start Brovana and Pulmicort nebulizers. Continue Solu-Medrol Q8. # Probable pneumonia - Chest x-ray reviewed 07/05/2025 showing bilateral pneumonia although flash pulm edema cannot be ruled out. Today's BNP is 1100. 1 dose of Lasix given Monitor urine output and creatinine # Probable septic shock or hypotension related to sedation Patient meets criteria for sepsis secondary to pneumonia. Has a temp of 100.4, bilateral pulmonary infiltrates on the chest x-ray with endorgan damage mechanical ventilation and has transaminitis. Broad-spectrum antibiotics-linezolid and meropenem were started and blood cultures and sputum cultures drawn. Will tailor antibiotics according to cultures and sensitivities. # Acute COPD exacerbation Currently wheezing. She is a smoker. Will start Brovana and Pulmicort nebulizers getting DuoNebs every 6 as needed as well as Solu-Medrol 40 Q8. # Transaminitis most likely secondary to shock liver related to hypertension # Acute flash pulm edema Reviewed chest x-ray shows flash pulm edema versus pneumonia. # Chronic kidney disease Baseline creatinine 0.8 # CAD # Hypothyroidism # Hyperglycemia-insulin sliding scale medium. Avoid hypoglycemia. Maintain blood sugars between 140-180. Dextrose drip if needed to maintain blood sugar above 90 # Sedation-continue Versed and Precedex drip. Will add morphine 1 to 2 mg IV every 4 as needed also getting 15 mg of morphine 3 times daily scheduled. # Nutrition-starting tomorrow tube feeds, monitor BMs # DVT GI prophylaxis-SCDs and famotidine. Along with Lovenox. # Goals of care-discussed with at bedside who wants to keep patient full code for now. 06/04/2025 # CODE STATUS- FULL # Disposition-Will need full ICU support follow-up The high probability of a clinically significant, sudden or life threatening deterioration of the patient's [Respiratory, cardiac and renal] system(s) required my full and direct attention, intervention and personal management. The critical care time is as shown. This time is in addition to time spent performing any reported procedures but includes the following: [x] Data and vital sign review and interpretation [x] Patient assessment, examination and intervention [x] Documentation [x] Medication orders and management Critical Care Time (min): 45 Telemedicine Consent Patient seen today via Telemedicine by agreement and consent of patient.? Telemedicine technology used during the visit includes audio and, as available, review of images.? The patient encounter is appropriate and reasonable under the circumstances given the patient?s particular presentation at this time.? The patient has been advised of the potential risks and limitations of this mode of treatment (including but not limited to the absence of in-person examination) and has agreed to be treated in a remote fashion in spite of them.? Any, and all, of the patient?s/patient?s family?s questions on this issue have been answered and I have made no promises or guarantees to the patient. PDMP PDMP Reviewed: Not Reviewed Coding Level of Care Code Critical Care >/= 30 minutes Diagnoses Tobacco abuse Z72.0 COPD (chronic obstructive pulmonary disease) J44.9 Acute hypoxemic respiratory failure J96.01 COPD with acute exacerbation J44.1
[2025-07-05 15:52] LABS: MRSA PCR OZH (swab) NOT DETECTED (Not Detecte)
[2025-07-05] MEDS: FUROsemide 10 mg/mL SDV 4mL 40 MG IVP (16:09)
[2025-07-05 17:41] LABS: ABG PCO2 47.2 mmHg (35-45); ABG PH Result 7.34 (7.35-7.45); Alveolar-Arterial Oxygen Gradi 14.0 mmHg (5-10); Arterial Blood Gas Hematocrit 43.7 % (37-47); Blood Gas Operator Identificat MONRO; Blood Gas Sample Site Brachial, right; Blood Gas Sample Type Arterial; Blood Gas Tidal Volume 0.34; Carboxyhemoglobin 1.4 %THgb (0.4-20.1); Glucose Level-ABG 146.0 mg/dL (70-115); HCO3 ABG 25.4 mmol/L (22-26); Ionized Calcium Level - ABG 1.1 mmol/L (1.1-1.4); Methemoglobin < 0.0 % (0.4-1.5); Oxygen Saturation ABG 97.6; PEEP 8.0 cmH20; PO2 ABG 86.4 mmHg (80.0-100.0); PO2 FiO2 Ratio Arterial Blood 246; Potassium Level - ABG 3.3 mmol/L (3.5-5.0); Sodium Level - ABG 141.0 mmol/L (131-143)
--- NOTE | 2025-07-05 19:22 | PC.NURSE ---
Plan per Dr. Jaramillo instruction continue versed and precedex - hold off on propofol. Morphine as directed via og tube and brake thorough doses iv as noted up to 2 mg in 4 hours. See mar. Plan to keep sedated on ventilator this pm.
[2025-07-05] MEDS: ARFORMOTEROL 15 MCG/2 ML NEB INHALATION (19:56)
[2025-07-05] MEDS: morphine 4 mg/mL SDV 1 mL 1 MG IVP (19:59)
[2025-07-05] MEDS: vancomycin 500 MG in sodium chloride 0.9% (plus) 100 ML 200 MG IV (23:56)
[2025-07-05] MEDS: midazolam hcl 100 MG/100 ML BAG 6 MG IV (23:58)
[2025-07-06] VITALS (108 sets, daily range): BP systolic 86–134; BP diastolic 45–79; PULSE 76–99; RESP 14–30; TEMP 36.9; O2SAT 93–100
[2025-07-06 03:30] LABS: Hematocrit 42.5 % (36-47); Hemoglobin 13.80 g/dL (11.27-16.99); Mean Corpuscular HGB Conc 32.5 g/dL (30-55); Mean Corpuscular Hemoglobin 31.0 pg (27-33); Mean Corpuscular Volume 95.5 fl (85-98); Nucleated Red Blood Cells % 0 %; Platelet Count 179 10^3/cmm (157-399); Red Blood Count 4.45 10^6/uL (3.85-5.65); White Blood Count 6.83 10^3/uL (3.29-11.43)
[2025-07-06] MEDS: methylPREDNISolone sod succ 40 mg/mL INJ IVP ×3 (03:48→19:14)
[2025-07-06 03:58] LABS: Lactate (Lactic Acid level) 1.7 mmol/L (0.5-2.2); Magnesium 1.9 mg/dL (1.7-2.3)
[2025-07-06 03:59] LABS: NT Pro B Type Natriuretic Pept 9681 pg/mL (0-125); Procalcitonin 0.94 ng/mL (0-0.5)
[2025-07-06 04:00] LABS: Alanine Aminotransferase 146 U/L (0-33); Albumin Level 3.6 g/dL (3.5-5.2); Alkaline Phosphatase 119 U/L (35-105); Anion Gap 16.4 (5-19); Aspartate Amino Transferase 76 U/L (0-32); Blood Urea Nitrogen 12 mg/dL (8-23); Calcium 7.6 mg/dL (8.5-10.5); Carbon Dioxide 26 mmol/L (22-29); Chloride 103 mmol/L (98-107); Globulin 1.8 g/dL (1.3-4.6); Glucose 143 mg/dL (65-115); Osmolality Calculated 296 mOsm/kg (285-295); Potassium 3.4 mmol/L (3.5-5.1); Sodium 142 mmol/L (136-145); Total Protein 5.4 g/dL (6.6-8.7)
[2025-07-06 04:13] LABS: ABG PCO2 41.5 mmHg (35-45); ABG PH Result 7.45 (7.35-7.45); Arterial Blood Gas Hematocrit 44.4 % (37-47); Blood Gas Allen Test Pos; Blood Gas Operator Identificat BD; Blood Gas Sample Site Brachial, right; Blood Gas Sample Type Arterial; Blood Gas Tidal Volume 0.34; HCO3 ABG 28.7 mmol/L (22-26); PEEP 8.0 cmH20; PO2 ABG 89.3 mmHg (80.0-100.0); PO2 FiO2 Ratio Arterial Blood 255
[2025-07-06 05:27] LABS: Bacillus cereus group Not Detected (NOT DETECT); Bacillus subtillis group Not Detected (NOT DETECT); Corynebacterium Not Detected (NOT DETECT); Cutibacterium acnes (P.acnes) Not Detected (NOT DETECT); Enterococcus faecalis Not Detected (NOT DETECT); Enterococcus faecium Not Detected (NOT DETECT); Listeria Not Detected (NOT DETECT); Micrococcus Not Detected (NOT DETECT); Pan Candida Not Detected (NOT DETECT); Pan Gram-Negative Not Detected (NOT DETECT); Staphylococcus epidermidis Not Detected (NOT DETECT); Staphylococcus lugdunensis Not Detected (NOT DETECT); Staphylococcus species Not Detected (NOT DETECT); Streptococcus anginosus group Not Detected (NOT DETECT); Streptococcus pyogenes Not Detected (NOT DETECT); Streptococcus species Not Detected (NOT DETECT)
[2025-07-06] MEDS: potassium chloride oral liq 20 mEq/15 mL UDC 40 MEQ PO (05:30)
[2025-07-06] MEDS: dexmedeTOMIDine 0.9 % NaCL 400 MCG/100 ML PREMIX 6.35 MCG IV ×2 (06:25→17:57)
[2025-07-06] MEDS: ARFORMOTEROL 15 MCG/2 ML NEB INHALATION ×2 (07:52→20:00)
[2025-07-06] MEDS: vancomycin 500 MG in sodium chloride 0.9% (plus) 100 ML 200 MG IV (12:29)
--- NOTE | 2025-07-06 12:34 | P.PN_ITS ---
Subjective 2 Subjective: - Patient was seen this morning - She is alert to person, she can follow commands, able to move bilateral upper and lower extremities - 35% FiO2 - Currently not requiring pressors No family was at bedside Vitals/I&O/Wt Last Vital Signs Temp 98.5 F 07/06/25 07:45 Pulse 80 07/06/25 11:27 Resp 22 H 07/06/25 11:27 BP 95/47 07/06/25 08:45 Pulse Ox 98 07/06/25 11:27 O2 Del Method Mechanical Ventilation 07/06/25 11:27 FiO2 35 07/06/25 11:27 07/05/25 07/06/25 07/06/25 22:59 06:59 14:59 Intake Total 430.916 / 2857.296 209.861 / 3067.157 60.4 / 60.4 Output Total 2500 / 2500 250 / 2750 Balance -2069.084 / 357.296 -40.139 / 317.157 60.4 / 60.4 Weight last 48 hrs Weight 77 kg Weight 75.5 kg Weight 63.503 kg Physical Exam 2 Const: COMMON NORMALS: no acute distress ORIENTATION/CONSCIOUSNESS: Yes awake and Yes oriented to person; not oriented to place and not oriented to time Eye: COMMON NORMALS: Equal, round and reactive pupils present PUPIL: Yes Equal, round and reactive pupils present Resp: COMMON NORMALS: normal respiratory effort, No retractions and No use of accessory muscles AUSCULTATION: crackles and wheezes Cardio: COMMON NORMALS: regular rate, regular rhythm, S1 normal heart sound present and S2 normal heart sound present RATE: regular rate RHYTHM: r egular rhythm HEART SOUNDS: S1 normal heart sound present and S2 normal heart sound present GI: COMMON NORMALS: Normal to inspection, nondistended, normoactive bowel sounds present and non-tender : COMMON NORMALS: Yes no CVA tenderness BLADDER/KIDNEY EXAM: Yes no CVA tenderness Back/Pelvis: COMMON NORMALS: no CVA tenderness Extremity: COMMON NORMALS: no pedal edema Neuro: SENSORIUM/ORIENTATION: Yes oriented to person, No oriented to place and No oriented to time Skin: COMMON NORMALS: turgor normal GENERAL SKIN EXAM: turgor normal Urinary Catheter Management: Finney: Cath Placed During This Visit: yes Reason for Continuing Indwelling Catheter: Accurate Measurement of Urinary Output in Critically Ill Patients Urinary Catheter Date of Insertion: 07/05/25 Urinary Catheter Time of Insertion: 08:19 Quick SOFA Score: Respiratory Rate: 22 Blood Pressure: 95/47 Gunpowder Coma Scale: 11 qSOFA Score: 3 If qSOFA score 2 or greater, continue: PaO2/FiO2 Ratio (mmHg): 255 Blood Pressure Mean: 63 Bilirubin (mg/dl): 0.3 Platelets (x10?/ml): 179 C reatinine (mg/dl): 0.8 SOFA Score: 5 Evaluation: Current stage of sepsis: sepsis Sepsis stage criteria used: [facility] Sep-1 and Sepsis-3 Crystalloid fluids: less than 30 mL/kg crystalloid fluids ordered Blood cultures ordered: Yes Possible source: pulmonary Focused Exam: Vital signs: Temp Pulse Resp BP Pulse Ox O2 Del Method FiO2 07/06/25 11:27 22 H 98 35 07/06/25 11:27 80 23 H 98 Mechanical Ventila tion 35 07/06/25 09:31 23 H 98 35 07/06/25 08:45 90 95/47 97 Mechanical Ventila tion 35 07/06/25 08:30 91 86/48 98 07/06/25 08:15 90 99/50 97 07/06/25 08:00 86 97/56 98 07/06/25 07:58 35 07/06/25 07:56 14 98 35 07/06/25 07:55 86 15 98 Mechanical Ventila tion 35 07/06/25 07:45 98.5 F 82 104/51 97 Mechanical Ventila tion 35 07/06/25 07:30 83 103/54 07/06/25 07:15 86 99/50 98 07/06/25 07:00 88 98/49 97 07/06/25 06:45 89 108/58 97 07/06/25 06:30 90 109/54 07/06/25 06:15 79 111/54 97 07/06/25 06:14 17 98 35 07/06/25 06:05 81 16 98 Mechanical Ventila tion 35 07/06/25 06:00 80 111/56 97 07/06/25 05:45 78 120/60 97 07/06/25 05:30 78 116/69 97 07/06/25 05:15 78 120/61 98 07/06/25 05:00 80 112/59 07/06/25 04:45 80 117/53 07/06/25 04:30 80 113/64 07/06/25 04:15 79 123/59 97 07/06/25 04:00 79 120/58 97 07/06/25 03:45 79 120/57 07/06/25 03:30 80 117/59 97 07/06/25 03:15 79 120/59 97 07/06/25 03:00 80 119/59 07/06/25 02:45 81 118/63 97 07/06/25 02:41 16 97 35 07/06/25 02:30 81 118/64 07/06/25 02:15 82 118/59 98 07/06/25 02:14 81 118/59 98 07/06/25 01:45 82 116/60 97 07/06/25 01:30 83 120/57 97 07/06/25 01:15 83 118/59 97 07/06/25 01:00 84 117/58 97 07/06/25 00:45 84 120/60 97 Respiratory exam: crackles present and positive wheezes Cardiovascular exam: regular rate, regular rhythm, S1 normal heart sound and S2 normal heart sound Peripheral pulse strength: 2+ Slightly Diminished Peripheral pulse location: Radial Skin exam: turgor normal Date exam was performed: 1 09/05/24 Time exam was performed: 12:38 2 Sepsis Screen No Definite Risk 07/05/25, 11:00 Respiratory Rate, (12 - 18) 22 breaths/min H Today, 11:27 Blood Pressure 95/47 mmHg Today, 08:45 Gunpowder Coma Scale Score 11 Today, 08:00 Quick SOFA Score 0 07/05/25, 11:00 SOFA Score: 2 ABG PO2/FiO2 Ratio 255 Today, 04:00 Gunpowder Coma Scale Score 11 Today, 08:00 Blood Pressure Mean 63 mmHg Today, 08:45 Total Bilirubin, (0.15-1.2) 0.3 mg/dL Today, 03:16 Platelet Count, (157-399) 179 10^3/cmm Today, 03:16 Creatinine, (0.5-0.9) 0.8 mg/dL Today, 03:16 SOFA Score 6 07/05/25, 14:16 Data 07/06/25 03:16 07/06/25 03:16 Micro: Microbiology 07/05/25 08:43 Blood Culture - Preliminary Blood NEGATIVE TO DATE 07/05/25 08:15 Blood Culture - Preliminary Blood 07/05/25 08:20 Gram Stain - Final Sputum - Endotracheal Wash A&P Assessment and plan 1. Tobacco abuse: 2. COPD (chronic obstructive pulmonary disease): 3. Acute hypoxemic respiratory failure: 4. COPD with acute exacerbation: 5. Acute hypoxic respiratory failure: 6. Sepsis: 7. Pneumonia: 8. Transaminitis: 9. NSTEMI (non-ST elevated myocardial infarction): Plan: Acute hypoxic respiratory failure - Secondary to COPD exacerbation -secondary to pneumonia - With evidence of sepsis - With evidence of NSTEMI Plan -Currently intubated, sedated on mechanical ventilation - Versed for sedation -Precedex for sedation - morphine 15 mg every 6 hours -Patient is on clonazepam 1 mg twice daily for many years, but she takes it as needed - Consult pulmonary - Minimize PEEP, minimize FiO2 - Vancomycin - Meropenem - Blood cultures - Sputum cultures - Solu-Medrol 40 mg IV every 8 hours - Therapeutic Lovenox even NSTEMI as above - Cardiac echo pending - Aspirin, statin -Transaminitis, monitor - Maintain MAP more than 65 - Full code - Lovenox for DVT prophylaxis PDMP PDMP Reviewed: Last Reviewed 07/05/25 13:11 by Mark Jaramillo MD Attestations 2 Medical Necessity Statement*: Patient requires hospitalization for acute hypoxic respiratory failure, CHF, pneumonia, sepsis, NSTEMI Coding Level of Care Code Critical Care >/= 30 minutes Critical care time (in minutes): 45 The high probability of a clinically significant, sudden or life threatening deterioration, as referenced in this documentation, required my full and direct attention, intervention and personal management. The critical care time shown is in addition to time spent performing any reported separately billable procedures and includes the following: [x] Data and vital sign review and interpretation [x ] Patient assessment, examination and intervention [x] Medication orders and management [x] Patient/Family updates as able [x] Care Coordination and Documentation. Diagnoses Tobacco abuse Z72.0 COPD (chronic obstructive pulmonary disease) J44.9 Acute hypoxemic respiratory failure J96.01 COPD with acute exacerbation J44.1 Acute hypoxic respiratory failure J96.01 Sepsis A41.9 Pneumonia J18.9 Transaminitis R74.01 NSTEMI (non-ST elevated myocardial infarction) I21.4
[2025-07-06] MEDS: FUROsemide 10 mg/mL SDV 4mL 40 MG IVP (12:53)
--- NOTE | 2025-07-06 15:07 | PC.NURSE ---
Patient was extubated at 1445 to nasal cannula by respiratory therapist.
--- NOTE | 2025-07-06 15:45 | PC.NURSE ---
Addendum entered by Trae Boothe RN 07/06/25 15:48: witnessed waste Original Note: 39.6 mls of versed and 98.854 mls of propofol wasted, witnessed by TYLER Larkin
[2025-07-06] MEDS: morphine 4 mg/mL SDV 1 mL 1 MG IVP ×2 (16:59→22:54)
--- NOTE | 2025-07-06 17:34 | PC.NURSE ---
Dr. Jaramillo ordered bipap for noc
--- NOTE | 2025-07-06 21:41 | PM.PN ---
Subjective Subjective: Shreya Salazar is a 69 year old female with past medical history of asthma and COPD, chronic respiratory failure, chronic kidney disease, previous AL presents initially to [facility] with shortness of cassandra. Th and cough. She was found to be in acute respiratory distress and was emergently intubated in ER she was given magnesium Solu-Medrol and epinephrine. Due to hypotension Levophed was started. She is on Versed and Precedex currently since she cannot tolerate opioids. She has extensive allergies. She has already been on the ventilator 08/05/25 Tolerating SBT well. On precedex and prn morphine. Following commands Vitals/I&O/Wt Last Vital Signs Temp 98.4 F 07/06/25 19:00 Pulse 85 07/06/25 20:00 Resp 22 H 07/06/25 20:00 BP 131/62 07/06/25 20:00 Pulse Ox 100 07/06/25 20:00 O2 Del Method Nasal Cannula 07/06/25 20:00 O2 Flow Rate 2 07/06/25 20:00 FiO2 35 07/06/25 12:45 07/06/25 07/06/25 07/06/25 06:59 14:59 22:59 Intake Total 209.861 / 3067.157 60.4 / 60.4 191.178 / 251.578 Output Total 250 / 2750 1100 / 1100 Balance -40.139 / 317.157 60.4 / 60.4 -908.822 / -848.422 Weight last 48 hrs Weight 169 lb 12.095 oz Weight 166 lb 7.184 oz Weight 140 lb Physical Exam Narrative: Per RN General: Intubated awake HEENT: EOMI Pulmonary: Wheezing bilaterally but minimal Cardiovascular: rrr, nl s1s2, Abdomen: soft, nt, nd, no r/g, Extremities: no edema Neurologic: grossly intact Agree with above exam Urinary Catheter Management: Finney: Cath Placed During This Visit: yes Reason for Continuing Indwelling Catheter: Accurate Measurement of Urinary Output in Critically Ill Patients Urinary Catheter Date of Insertion: 07/05/25 Urinary Catheter Time of Insertion: 08:19 Data 07/06/25 03:16 07/06/25 03:16 Micro: Microbiology 07/05/25 08:43 Blood Culture - Preliminary Blood NEGATIVE TO DATE 07/05/25 08:15 Blood Culture - Preliminary Blood 07/05/25 08:20 Gram Stain - Final Sputum - Endotracheal Wash A&P Assessment and plan 1. Tobacco abuse: 2. COPD (chronic obstructive pulmonary disease): 3. Acute hypoxemic respiratory failure: 4. COPD with acute exacerbation: Plan: # Acute on chronic hypoxemic hypercarbic respiratory failure -Reviewed patient's ABG initially was 7.12. Looks like mixed acute metabolic on chronic hypercapnic respiratory acidosis. Continue ventilator support and wean as needed. Discussed with RT , tolerating SBt well ABG is much improved at 7.45/41/89- 07/06/25 Continue Brovana and Pulmicort nebulizers. Continue Solu-Medrol Q8. SBT and plan to extubate soon # Probable pneumonia - Chest x-ray reviewed 07/05/2025 showing bilateral pneumonia although flash pulm edema cannot be ruled out. Today's BNP is 9681. on lasix Monitor urine output and creatinine # Probable septic shock or hypotension related to sedation Patient meets criteria for sepsis secondary to pneumonia. Has a temp of 100.4, bilateral pulmonary infiltrates on the chest x-ray with endorgan damage mechanical ventilation and has transaminitis. Broad-spectrum antibiotics-linezolid and meropenem were started and blood cultures and sputum cultures drawn. Will tailor antibiotics according to cultures and sensitivities.- NGTD # Acute COPD exacerbation Currently wheezing. She is a smoker. continue Brovana and Pulmicort nebulizers getting DuoNebs every 6 as needed as well as Solu-Medrol 40 Q8. # Transaminitis most likely secondary to shock liver related to hypertension # Acute flash pulm edema Reviewed chest x-ray shows flash pulm edema versus pneumonia. # Chronic kidney disease Baseline creatinine 0.8 # CAD # Hypothyroidism # Hyperglycemia-insulin sliding scale medium. Avoid hypoglycemia. Maintain blood sugars between 140-180. Dextrose drip if needed to maintain blood sugar above 90 # Sedation-continue Versed and Precedex drip. Will add morphine 1 to 2 mg IV every 4 as needed also getting 15 mg of morphine 3 times daily scheduled. # Nutrition-starting tomorrow tube feeds, monitor BMs # DVT GI prophylaxis-SCDs and famotidine. Along with Lovenox. # Goals of care-discussed with at bedside who wants to keep patient full code for now. 06/04/2025 # CODE STATUS- FULL # Disposition-Will need full ICU support follow-up The high probability of a clinically significant, sudden or life threatening deterioration of the patient's [Respiratory, cardiac and renal] system(s) required my full and direct attention, intervention and personal management. The critical care time is as shown. This time is in addition to time spent performing any reported procedures but includes the following: [x] Data and vital sign review and interpretation [x] Patient assessment, examination and intervention [x] Documentation [x] Medication orders and management Critical Care Time (min): 35 Telemedicine Consent Patient seen today via Telemedicine by agreement and consent of patient.? Telemedicine technology used during the visit includes audio and, as available, review of images.? The patient encounter is appropriate and reasonable under the circumstances given the patient?s particular presentation at this time.? The patient has been advised of the potential risks and limitations of this mode of treatment (including but not limited to the absence of in-person examination) and has agreed to be treated in a remote fashion in spite of them.? Any, and all, of the patient?s/patient?s family?s questions on this issue have been answered and I have made no promises or guarantees to the patient. PDMP PDMP Reviewed: Not Reviewed Attestations Medical Necessity Statement*: on mechanical ventillation Coding Level of Care Code Critical Care >/= 30 minutes Diagnoses Tobacco abuse Z72.0 COPD (chronic obstructive pulmonary disease) J44.9 Acute hypoxemic respiratory failure J96.01 COPD with acute exacerbation J44.1
[2025-07-07] VITALS (106 sets, daily range): BP systolic 94–170; BP diastolic 52–104; PULSE 58–171; RESP 16–37; TEMP 36.9–37.6; O2SAT 86–100
--- NOTE | 2025-07-07 00:59 | PC.NURSE ---
Patient refused to wear bipap per RT. RT educated patient on effects of not wearing bipap and patient verbalized understanding of potential decline in health from not wearing bipap but still refused. She stated she will only wear it in the event that she would be near requiring mechanical ventilation again.
[2025-07-07] MEDS: vancomycin 500 MG in sodium chloride 0.9% (plus) 100 ML 200 MG IV ×2 (01:19→12:27)
[2025-07-07] MEDS: methylPREDNISolone sod succ 40 mg/mL INJ IVP ×3 (04:11→20:10)
[2025-07-07 04:47] LABS: Hematocrit 39.5 % (36-47); Hemoglobin 12.70 g/dL (11.27-16.99); Mean Corpuscular HGB Conc 32.2 g/dL (30-55); Mean Corpuscular Hemoglobin 30.8 pg (27-33); Mean Corpuscular Volume 95.6 fl (85-98); Nucleated Red Blood Cells % 0 %; Platelet Count 159 10^3/cmm (157-399); Red Blood Count 4.13 10^6/uL (3.85-5.65); White Blood Count 9.04 10^3/uL (3.29-11.43)
[2025-07-07 06:38] LABS: Lactate (Lactic Acid level) 1.0 mmol/L (0.5-2.2)
--- NOTE | 2025-07-07 07:00 | XRR_ITS ---
PROCEDURE INFORMATION: Exam: XR Chest Exam date and time: 07/07/2025 8:53 AM Age: 69 years old Clinical indication: Shortness of breath; Additional info: SOB TECHNIQUE: Imaging protocol: Radiologic exam of the chest. Views: 1 view. COMPARISON: CT angio chest PE protcl [id number] 07/05/2025 11:20 AM FINDINGS: Lungs: No active infiltrate or focal parenchymal abnormality. Pulmonary vascularity is normal. Pleural spaces: No pleural effusion. No pneumothorax. Heart/Mediastinum: Normal cardiomediastinal sillhouette. Bones/joints: Unremarkable. Tubes, catheters, and devices: Right chest PICC is seen with tip in the superior vena. XR/XR chest 1V portable [id number] IMPRESSION: No acute cardiopulmonary abnormality.
[2025-07-07 08:04] LABS: NT Pro B Type Natriuretic Pept 2463 pg/mL (0-125); Procalcitonin 0.48 ng/mL (0-0.5)
[2025-07-07 08:16] LABS: Alanine Aminotransferase 102 U/L (0-33); Albumin Level 3.7 g/dL (3.5-5.2); Alkaline Phosphatase 92 U/L (35-105); Anion Gap 11.7 (5-19); Aspartate Amino Transferase 35 U/L (0-32); Blood Urea Nitrogen 15 mg/dL (8-23); Calcium 8.1 mg/dL (8.5-10.5); Carbon Dioxide 28 mmol/L (22-29); Chloride 104 mmol/L (98-107); Globulin 1.8 g/dL (1.3-4.6); Glucose 130 mg/dL (65-115); Magnesium 2.4 mg/dL (1.7-2.3); Osmolality Calculated 293 mOsm/kg (285-295); Potassium 3.7 mmol/L (3.5-5.1); Sodium 140 mmol/L (136-145); Total Protein 5.5 g/dL (6.6-8.7)
[2025-07-07] MEDS: ARFORMOTEROL 15 MCG/2 ML NEB INHALATION ×2 (08:31→19:39)
--- NOTE | 2025-07-07 09:05 | ECG_ITS ---
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 Measurements Intervals [place] Rate: 83 P: 75 NJ: 152 QRS: 76 QRSD: 77 T: 81 QT: 382 QTc: 449 Interpretive Statements SINUS RHYTHM POSSIBLE SEPTAL INFARCTION, AGE INDETERMINATE LOW QRS VOLTAGE IN PRECORDIAL LEADS [QRS DEFLECTION < 1.0 mV IN CHEST LEADS] POSSIBLE RIGHT VENTRICULAR CONDUCTION DELAY [RSR (QR) IN V1/V2] Compared to ECG 07/05/2025 15:45:37 ST DEPRESSION NO LONGER PRESENT Electronically Signed On 07-08-2025 16:18:33 [employer] by Asim Prince M.D. [email or web address]
[2025-07-07 10:11] LABS: Troponin(5th) Baseline 27 ng/L (0-10)
[2025-07-07 12:16] LABS: Troponin 5 2HR 22.74 ng/L (0-10)
--- NOTE | 2025-07-07 12:17 | PC.SOCIAL ---
IMM Updated Updated pt on IMM. No questions voiced. Provided pt a copy. Initialed, dated, & timed a copy & placed in chart.
[2025-07-07 12:47] LABS: Troponin 5 2HR Delta -4.26 ABS# (0-10)
--- NOTE | 2025-07-07 13:29 | PM.CONSULT ---
Providers/Reason For Consult Consulting Physician/Specialty*: Asim Prince MD Reason for Consult*: Non-STEMI Requesting Physician: Mark Jaramillo MD Attending Physician: Mark Jaramillo MD Primary Care Provider: SLOAN Terry History of Present Illness History of Present Illness Shreya Salazar is a 69 year old female smoker with a history of asthma/COPD who is admitted for acute hypoxic respiratory failure requiring mechanical ventilation. Imaging was consistent with possible pneumonia but flash pulmonary edema could not be excluded. Patient was given IV Lasix as well as bronchodilators, antibiotics, steroids and mechanical ventilation. The patient has been extubated. Laboratories were consistent with a non-ST elevation myocardial infarction. Patient is able to tell me that approximately 10 to 15 years ago she was diagnosed with a heart attack and Takotsubo's cardiomyopathy. She states since that time she has had mildly reduced ejection fraction. She cannot recall the last time she had an echocardiogram prior to this hospitalization. [place] and she is active and has had no chest discomfort prior to admission. She denies ever being told she had congestive heart failure clinically and denies having any lower extremity edema. She states that she does have propranolol at home which she takes if she is going to be doing chores because she feels like her heart increases with exertion. Medications/Allergies Home Medications ?Medication ?Instructions ?Recorded ?Confirmed ?Last Taken ?Type L.acidop,casei,lactis,rham-B.lact,nikki 1 cap PO .2 times day #60 caps 01/07/23 07/05/25 Unknown Rx 625 mg (10 billion cell) capsule (Advanced Probiotic) lidocaine 4 % topical spray 1 spray topical .2 times #113 grams 08/12/23 07/05/25 Unknown Rx (Aspercreme (lidocaine)) inogen oxygen 3L NC #1 ea 03/02/24 07/05/25 Unknown Rx morphine 30 mg tablet,extended 30 mg PO Q12H 11/25/24 07/05/25 Unknown History release nitroglycerin 0.4 mg sublingual 0.4 mg sublingual Q5M PRN chest 12/08/24 07/05/25 Unknown Rx tablet pain #25 tabs budesonide 160 mcg-glycopyr 9 2 inh inhalation BID #10.7 grams 04/04/25 07/05/25 Unknown Rx mcg-formot 4.8 mcg/actuation HFA inhaler (Breztri Aerosphere) clonazepam 1 mg tablet (Klonopin) 1 mg PO BID PRN anxiety #60 tabs 04/04/25 07/05/25 Unknown Rx escitalopram oxalate 20 mg tablet 20 mg PO DAILY #30 tabs 04/04/25 07/05/25 Unknown Rx (Lexapro) potassium chloride 10 mEq 10 meq PO DAILY PRN with fluid 04/04/25 07/05/25 Unknown Rx capsule,extended release pill #30 caps triamcinolone acetonide 0.1 % 1 applic topical BID #80 grams 04/04/25 07/05/25 Unknown Rx topical cream methimazole 5 mg tablet 5 mg PO .COMPLEX #30 tabs 04/25/25 07/05/25 Unknown Rx ipratropium 0.5 mg-albuterol 3 mg 3 ml inhalation Q6H PRN wheezing 05/22/25 07/05/25 Unknown Rx (2.5 mg base)/3 mL nebulization #180 mL soln nebulizers (AeroEclipse II #1 ea 05/22/25 07/05/25 Unknown Rx Nebulizer) Ventolin HFA 90 mcg/actuation 2 puff inhalation Q4H PRN 06/28/25 07/05/25 Unknown Rx aerosol inhaler (albuterol sulfate) shortness of breath or wheezing #18 grams diphenoxylate-atropine 2.5 1 tab PO BID PRN diarrhea #60 tabs 06/28/25 07/05/25 Unknown Rx mg-0.025 mg tablet (Lomotil) baclofen 20 mg tablet 20 mg PO DAILY #30 tabs 07/04/25 07/05/25 Unknown Rx ergocalciferol (vitamin D2) 1,250 1,250 mcg PO .weekly #4 caps 07/04/25 07/05/25 Unknown Rx mcg (50,000 unit) capsule ketorolac 10 mg tablet 10 mg PO DAILY PRN pain #10 tabs 07/04/25 07/05/25 Unknown Rx prednisone 5 mg tablet 5 mg PO DAILY #20 tabs 07/04/25 07/05/25 Unknown Rx Allergies Allergy/AdvReac Type Severity Reaction Status Date / Time Opioids-Meperidine and Allergy Severe Rash and Verified 06/08/25 18:16 Related itching Opioids-Methadone and Related Allergy Severe Itching Verified 06/08/25 18:16 erythromycin base Allergy Intermediate Itching Verified 06/08/25 18:16 Latex, Natural Rubber Allergy Intermediate Itching Verified 06/08/25 18:16 levofloxacin (From Levaquin) Allergy Intermediate Rash Verified 06/08/25 18:16 Tetracyclines Allergy Intermediate Rash Verified 06/08/25 18:16 trimethoprim Allergy Mild Itching Verified 06/08/25 18:16 Current Medications Generic Name Dose Route Start Last Admin Trade Name Freq PRN Reason Stop Dose Admin Albuterol/Ipratropium 3 ml 07/05/25 12:00 07/07/25 11:20 Ipratropium-Albuterol 3 Ml Neb INHALATION 3 ml Q4H.RESPIRATORY DANIEL Administration Aspirin 81 mg 07/05/25 14:15 07/07/25 04:11 Aspirin 81 Mg Ec Tablet PO 81 mg DAILY DANIEL Administration Atorvastatin Calcium 40 mg 07/05/25 21:00 07/06/25 21:52 Atorvastatin 40 Mg Tablet PO 40 mg BEDTIME DANIEL Administration Budesonide 0.5 mg 07/05/25 20:00 07/07/25 08:31 Budesonide 0.5 Mg/2 Ml Neb INHALATION 0.5 mg BID.RESPIRATORY DANIEL Administration Enoxaparin Sodium 60 mg 07/06/25 02:00 07/07/25 01:21 Enoxaparin 60 Mg/0.6 Ml Syringe SUBCUT 60 mg Q12H DNAIEL Administration Famotidine 20 mg 07/05/25 11:45 07/07/25 12:27 Famotidine 20 Mg/2 Ml Inj IVP 20 mg Q12H DANIEL Administration Midazolam HCl 100 mg in 100 mls @ 0 mls/hr 07/05/25 08:15 07/06/25 15:44 Versed IV Infused .Q0M DANIEL Titration Protocol Per Protocol Propofol 1,000 mg in 100 mls @ 0 mls/hr 07/05/25 11:45 07/06/25 15:44 Diprivan IV Infused .Q0M DANIEL Titration Protocol Per Protocol Vancomycin HCl 500 mg/ Sodium 100 mls @ 200 mls/hr 07/06/25 00:30 07/07/25 12:27 Chloride IV 200 mls/hr Q12H DANIEL Administration Dexmedetomidine/Sodium Chloride 400 mcg in 100 mls @ 0 mls/hr 07/05/25 13:15 07/07/25 12:49 Precedex IV Infused .Q0M DANIEL Titration Protocol Per Protocol Meropenem 500 mg 07/05/25 15:30 07/07/25 08:23 Meropenem 500 Mg Sdv IVP 500 mg Q8H DANIEL Administration Protocol Methylprednisolone Sodium Succinate 40 mg 07/05/25 11:45 07/07/25 12:27 Methylprednisolone Sod Succ 40 Mg/Ml Inj IVP 40 mg Q8H DANIEL Administration Morphine Sulfate 1 mg 07/05/25 11:41 07/06/25 22:54 Morphine 4 Mg/Ml Sdv 1 Ml IVP 1 mg Q4H PRN Administration SEVERE PAIN Morphine Sulfate 15 mg 07/05/25 13:30 07/07/25 08:21 Morphine Ir 15 Mg Tablet PO 15 mg Q6H DANIEL Administration Morphine Sulfate 1 mg 07/05/25 17:01 07/05/25 19:59 Morphine 4 Mg/Ml Sdv 1 Ml IVP 1 mg Q4H PRN 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 Acute PFSH: Medical History (Updated 07/07/25 @ 13:52 by Asim Prince MD) CKD (chronic kidney disease) stage 2, GFR 60-89 ml/min Interstitial cystitis Medical marijuana use Psoriasiform dermatitis Vitamin D deficiency History of SD (myocardial infarction) Generalized anxiety disorder Nicotine dependence, unspecified, uncomplicated Insomnia Hyperthyroidism Spondylitis, ankylosing GERD (gastroesophageal reflux disease) COPD (chronic obstructive pulmonary disease) Tobacco abuse Irritable bowel syndrome with diarrhea Surgical History History of thoracic surgery age 12 History of lumbar surgery age 12 History of hysterectomy Family History Father Cancer Mother Cancer Family/Other Cancer Social History Smoking and tobacco/nicotine status: current every day tobacco/nicotine user cigarettes Packs smoked per day: 0.5 Years cigarettes smoked: 52 Quit status (tobacco/nicotine): has tried quititng Number of times tried to quit tobacco: 20 Second hand smoke exposure: No Alcohol intake: never Substance/Drug Use: current Substance/Drug use frequency: daily Caregiver/support person: No Lives independently: Yes Household members: none Housing: Apartment Marital status: / Number of children: 2 Number of grandchildren: 3 service: No Current occupational status: disabled Pets and animals: Yes Pets & animals: cat(s) and dog(s) Do you think of yourself as: Straight/Heterosexual Current gender identity: Female Vitals/I&O/Wt Last Vital Signs Temp 99 F 07/07/25 12:45 Pulse 87 07/07/25 13:00 Resp 25 H 07/07/25 13:00 BP 159/68 07/07/25 13:00 Pulse Ox 93 07/07/25 13:00 O2 Del Method Room Air 07/07/25 12:45 O2 Flow Rate 0.5 07/07/25 08:31 FiO2 35 07/06/25 12:45 07/06/25 07/07/25 07/07/25 22:59 06:59 14:59 Intake Total 191.178 / 251.578 171.649 / 423.227 628.351 / 628.351 Output Total 1100 / 1100 750 / 1850 775 / 775 Balance -908.822 / -848.422 -578.351 / -1426.773 -146.649 / -146.649 Weight last 48 hrs Weight 169 lb 15.622 oz Weight 169 lb 12.095 oz Physical Exam Narrative: General: In no acute distress Neck: No jugular venous distention or carotid bruits Heart: Normal S1 and S2 with a regular rate and rhythm, no cardiac murmurs Lungs: Normal respiratory effort with no use of intercostal muscles, clear lungs sounds to auscultation Extremities: No lower extremity edema Neuro: Alert and oriented x 3 Urinary Catheter Management: Finney: Cath Placed During This Visit: yes Reason for Continuing Indwelling Catheter: Accurate Measurement of Urinary Output in Critically Ill Patients Urinary Catheter Date of Insertion: 07/05/25 Urinary Catheter Time of Insertion: 08:19 Data 07/07/25 04:07 07/07/25 07:13 Micro: Microbiology 07/05/25 08:20 Gram Stain - Final Sputum - Endotracheal Wash Sputum Culture - Final 07/05/25 08:43 Blood Culture - Preliminary Blood NEGATIVE TO DATE Other data: Echo 07/06/2025: Technically difficult echo with suboptimal images. Patient with respiratory failure and in ICU. Mildly dilated LV cavity with moderately reduced LV systolic function. LVEF estimated at 45%. Wall motion abnormalities as above Right ventricle appears to be of normal size with normal RV systolic function. Mild mitral regurgitation. With the suboptimal images right heart and pulmonary pressure could not be assessed accurately. My personal interpretation oth the echo from 07/06/25: Mildly dilated left ventricular cavity Severe hypokinesis of the basal inferoseptal, inferior and inferolateral wall segments Mildly reduced ejection fraction, 48% Normal right ventricular size and systolic function No significant valvular abnormalities Trace pericardial effusion along the right atrium without tamponade 4 EKGs have been done this hospitalization and all all 4 have been personally interpreted by myself: Normal sinus rhythm, incomplete right bundle branch block, mild T wave inversions in the lateral limb leads, minimal J-point ST depression. No significant difference between the EKGs. No prior EKGs available for review prior to this hospitalization. NT-proBNP's 1188??> 9681??> 2463 High sensitive troponin 80??> 117??> 154??> 27 Chest x-ray 07/07/2025?resolution of bilateral infiltrates/pulmonary edema A&P Assessment and plan 1. Pneumonia: 2. COPD with acute exacerbation: 3. NSTEMI (non-ST elevated myocardial infarction): 4. Coronary artery calcification seen on CAT scan: 5. Cardiomyopathy: 6. History of SD (myocardial infarction): 7. Acute hypoxic respiratory failure: Plan: - The patient's clinical presentation is consistent with COPD exacerbation, community-acquired pneumonia, and mild pulmonary edema - Elevated NT proBNP consistent with element of congestive heart failure - Echocardiogram shows evidence of mildly reduced ejection fraction of 48%. Patient has a history of known myocardial infarction and according to the patient Takotsubo's cardiomyopathy with mildly reduced ejection fraction. Prior echocardiogram not available for review. It does not appear that her mildly reduced ejection fraction this hospitalization is new. - Currently the patient appears euvolemic and appears to be improving from a CHF standpoint. Chest x-ray shows resolution of bilateral infiltrates/edema ? Elevation in troponin was secondary to demand ischemia and not ACS. I have offered the patient a screening nuclear stress test to rule out underlying obstructive coronary artery disease but the patient declines this since she states she is to old to have this and she does not think that she has any acute issues with her heart. -She does have evidence of mild coronary calcification on her CT scan which I would treat with aspirin 81 mg daily and atorvastatin 40 mg nightly - Standard guideline directed medical therapy for her mild cardiomyopathy and mild CHF exacerbation would include: Metoprolol succinate, Entresto, spironolactone and Jardiance. I would recommend starting with Entresto 24/26 mg twice daily and spironolactone 12.5 mg daily if she is agreeable. - She can follow-up with us in the office if she would like after discharge. Please call with any further cardiology questions. PDMP PDMP Reviewed: Not Reviewed Coding Level of Care Code 87372 Diagnoses Pneumonia J18.9 COPD with acute exacerbation J44.1 NSTEMI (non-ST elevated myocardial infarction) I21.4 Coronary artery calcification seen on CAT scan I25.10 Cardiomyopathy I42.9 History of SD (myocardial infarction) I25.2 Acute hypoxic respiratory failure J96.01
--- NOTE | 2025-07-07 14:28 | P.PN_ITS ---
Subjective 2 Subjective: - Patient was seen this morning - Alert oriented x 3, follow commands - Patient did not tolerate BiPAP overnig ht - Discussed morbidity and mortality tosha collier with hypercarbic respiratory failure, risk of reintubation, she voiced understanding, all questions answered she becomes quite claustrophobic she agrees to try again tonight if not, then at least try CPAP tonight - She does report a history of stress-in duced cardiomyopathy roughly 15 years ago, no stents placed in the heart we discussed her echocardiogram findings and cardiology consultation, she has no chest pain - Discussed planning PT OT - Smoking cessation counseling Vitals/I&O/Wt Last Vital Signs Temp 99 F 07/07/25 12:45 Pulse 90 07/07/25 14:00 Resp 24 H 07/07/25 13:32 BP 159/68 07/07/25 13:00 Pulse Ox 93 07/07/25 13:32 O2 Del Method Room Air 07/07/25 12:45 O2 Flow Rate 0.5 07/07/25 08:31 FiO2 35 07/06/25 12:45 07/06/25 07/07/25 07/07/25 22:59 06:59 14:59 Intake Total 191.178 / 251.578 171.649 / 423.227 728.351 / 728.351 Output Total 1100 / 1100 750 / 1850 775 / 775 Balance -908.822 / -848.422 -578.351 / -1426.773 -46.649 / -46.649 Weight last 48 hrs Weight 77.1 kg Weight 77 kg Physical Exam 2 Const: COMMON NORMALS: no acute distress and patient oriented x3 Resp: COMMON NORMALS: normal respiratory effort, No retractions and No use of accessory muscles AUSCULTATION: wheezes Cardio: COMMON NORMALS: regular rate, regular rhythm, S1 normal heart sound present and S2 normal heart sound present RATE: regular rate RHYTHM: r egular rhythm HEART SOUNDS: S1 normal heart sound present and S2 normal heart sound present GI: COMMON NORMALS: Normal to inspection, nondistended, normoactive bowel sounds present and non-tender Extremity: COMMON NORMALS: no pedal edema Neuro: COMMON NORMALS: patient oriented x3 and CN's II-XII intact bilaterally Psych: COMMON NORMALS: mental status grossly normal Urinary Catheter Management: Finney: Cath Placed During This Visit: yes Reason for Continuing Indwelling Catheter: Accurate Measurement of Urinary Output in Critically Ill Patients Urinary Catheter Date of Insertion: 07/05/25 Urinary Catheter Time of Insertion: 08:19 Data 07/07/25 04:07 07/07/25 07:13 Micro: Microbiology 07/05/25 08:20 Gram Stain - Final Sputum - Endotracheal Wash Sputum Culture - Final 07/05/25 08:43 Blood Culture - Preliminary Blood NEGATIVE TO DATE A&P Assessment and plan 1. Tobacco abuse: 2. COPD (chronic obstructive pulmonary disease): 3. Acute hypoxemic respiratory failure: 4. COPD with acute exacerbation: 5. Acute hypoxic respiratory failure: 6. Sepsis: 7. Pneumonia: 8. Transaminitis: 9. NSTEMI (non-ST elevated myocardial infarction): Plan: Acute hypoxic respiratory failure - Secondary to COPD exacerbation -secondary to pneumonia - With evidence of sepsis - With evidence of NSTEMI -Systolic CHF in exacerbation - S/p extubation 07/07/2025 Plan - Currently on nasal cannula -Recommend BiPAP as needed during the day, scheduled during the night -Precedex for agitation - Morphine 30 mg ER twice daily -Patient is on clonazepam 1 mg twice daily for many years, but she takes it as needed - Consult pulmonary - Minimize PEEP, minimize FiO2 - Vancomycin - Meropenem - Blood cultures - Sputum cultures - Solu-Medrol 40 mg IV every 8 hours - De-escalate to DVT prophylax Lovenox - Aspirin, statin -Requiring intermittent diuresis -Transaminitis, monitor - Maintain MAP more than 65 - Full code - Lovenox for DVT prophylaxis NSTEMI -Systolic CHF CONCLUSIONS Technically difficult echo with suboptimal images. Patient with respiratory failure and in ICU. Mildly dilated LV cavity with moderately reduced LV systolic function. LVEF estimated at 45%. Wall motion abnormalities as above Right ventricle appears to be of normal size with normal RV systolic function. Mild mitral regurgitation. With the suboptimal images right heart and pulmonary pressure could not be assessed accurately. - Aspirin, statin -Completed therapeutic Lovenox for 48 hours - De-escalate to DVT prophylaxis Lovenox PDMP PDMP Reviewed: Last Reviewed 07/05/25 13:11 by Mark Jaramillo MD Attestations 2 Medical Necessity Statement*: Patient requires hospitalization for acute hypoxic respiratory failure, COPD, pneumonia, NSTEMI Diagnoses Tobacco abuse Z72.0 COPD (chronic obstructive pulmonary disease) J44.9 Acute hypoxemic respiratory failure J96.01 COPD with acute exacerbation J44.1 Acute hypoxic respiratory failure J96.01 Sepsis A41.9 Pneumonia J18.9 Transaminitis R74.01 NSTEMI (non-ST elevated myocardial infarction) I21.4
--- NOTE | 2025-07-07 14:36 | ECG_ITS ---
[facility]07 Pat Name: Shreya Salazar Department: Room: ICU12 Gender: Female [employer]: : 1955 Requested By: Mark Jaramillo Order Number: [id number] Alize MD: Asim Prince M.D. Measurements Intervals [place] Rate: 120 P: 81 VT: 140 QRS: 83 QRSD: 80 T: 68 QT: 328 QTc: 464 Interpretive Statements SINUS TACHYCARDIA WITH FREQUENT VENTRICULAR PREMATURE COMPLEXES WITH OCCASIONAL SUPRAVENTRICULAR PREMATURE COMPLEXES LOW QRS VOLTAGE IN PRECORDIAL LEADS [QRS DEFLECTION < 1.0 mV IN CHEST LEADS] POSSIBLE RIGHT VENTRICULAR CONDUCTION DELAY [RSR (QR) IN V1/V2] ST DEPRESSION [0.05+ mV ST DEPRESSION] Compared to ECG 07/07/2025 09:25:56 Ventricular premature complex(es) now present ST deviation now present PVCS ARE NEW Electronically Signed On 07-08-2025 15:52:10 OUTPATIENT SCHEDULER by Asim Prince M.D. [email or web address]
[2025-07-07] MEDS: dexmedeTOMIDine 0.9 % NaCL 400 MCG/100 ML PREMIX 6.35 MCG IV (14:47)
--- NOTE | 2025-07-07 14:47 | PC.NURSE ---
After getting up to a bedside commode, patient became tachycardic heart rate in the 180's and she became extremely anxious. Patient would not stay still for a blood pressure. EKG shows SVT. Nurse alerted Dr jaramillo, by the time Dr jaramillo came to bedside, the patient's heart rate improved after deep breathing and reassurance from nursing staff. Dr Jaramillo requested a call again if this reoccurs, will consider adenosine vs a beta fausto at that time.
[2025-07-07 17:39] LABS: Troponin 5 6HR 32.25 ng/L (0-10); Troponin 5 6HR Delta 5.25 ng/L (0-12)
--- NOTE | 2025-07-07 18:11 | PC.NURSE ---
Shift SUmmary: Rested in bed for most of the day. Up to the bedside commode and became tachycardic into the 180's. Physician was considering an amiodarone or betablocker push while waiting on an EKG, but [facility]. Started on PO metoprolol. Patient is very anxious and expresses delusions of grandeur. Attempted to coem off of precedex today, but was had to restart.
[2025-07-07] MEDS: morphine ER (12 HR) 30 mg tablet PO (20:05)
[2025-07-08] VITALS (70 sets, daily range): BP systolic 108–170; BP diastolic 52–85; PULSE 54–90; RESP 14–38; TEMP 36.6–36.8; O2SAT 74–100
[2025-07-08 04:06] LABS: Hematocrit 41.4 % (36-47); Hemoglobin 13.40 g/dL (11.27-16.99); Mean Corpuscular HGB Conc 32.4 g/dL (30-55); Mean Corpuscular Hemoglobin 31.1 pg (27-33); Mean Corpuscular Volume 96.1 fl (85-98); Nucleated Red Blood Cells % 0 %; Platelet Count 176 10^3/cmm (157-399); Red Blood Count 4.31 10^6/uL (3.85-5.65); White Blood Count 8.56 10^3/uL (3.29-11.43)
[2025-07-08 04:34] LABS: Magnesium 2.6 mg/dL (1.7-2.3)
[2025-07-08] MEDS: methylPREDNISolone sod succ 40 mg/mL INJ IVP (04:34)
[2025-07-08 04:40] LABS: NT Pro B Type Natriuretic Pept 4424 pg/mL (0-125); Procalcitonin 0.29 ng/mL (0-0.5)
[2025-07-08 04:51] LABS: Alanine Aminotransferase 84 U/L (0-33); Albumin Level 3.8 g/dL (3.5-5.2); Alkaline Phosphatase 87 U/L (35-105); Anion Gap 12.4 (5-19); Aspartate Amino Transferase 22 U/L (0-32); Blood Urea Nitrogen 18 mg/dL (8-23); Calcium 8.6 mg/dL (8.5-10.5); Carbon Dioxide 29 mmol/L (22-29); Chloride 102 mmol/L (98-107); Globulin 2.0 g/dL (1.3-4.6); Glucose 143 mg/dL (65-115); Osmolality Calculated 292 mOsm/kg (285-295); Potassium 4.4 mmol/L (3.5-5.1); Sodium 139 mmol/L (136-145); Total Protein 5.8 g/dL (6.6-8.7)
[2025-07-08] MEDS: morphine ER (12 HR) 30 mg tablet PO ×2 (06:40→18:08)
[2025-07-08] MEDS: ARFORMOTEROL 15 MCG/2 ML NEB INHALATION (07:54)
[2025-07-08] MEDS: water for injection-sterile 20 ML 10000 ML (09:57)
[2025-07-08] MEDS: saline nasal spray 44mL Btl 1 SPRAY NASAL (12:00)
--- NOTE | 2025-07-08 13:45 | P.PN_ITS ---
Subjective 2 Subjective: Was seen this morning, currently alert oriented x 3, following all commands which reports shortness of breath with exertion, does report chest palpitations and tachycardia with exertion, tells me the Aformoterol causes tachycardia and her, she has generalized weakness, shortness with exertion, shortness of breath and tachycardia with changing position Vitals/I&O/Wt Last Vital Signs Temp 97.8 F 07/08/25 04:00 Pulse 72 07/08/25 11:53 Resp 18 07/08/25 11:45 BP 147/68 07/08/25 08:15 Pulse Ox 97 07/08/25 11:45 O2 Del Method Room Air 07/08/25 11:45 O2 Flow Rate 1 07/08/25 04:41 FiO2 28 07/08/25 00:28 07/07/25 07/08/25 07/08/25 22:59 06:59 14:59 Intake Total 339.308 / 1067.659 376.936 / 1444.595 272.067 / 272.067 Output Total 380 / 1155 Balance 339.308 / 292.659 -3.064 / 289.595 272.067 / 272.067 Weight last 48 hrs Weight 76.5 kg Weight 77.1 kg Physical Exam 2 Const: COMMON NORMALS: no acute distress and patient oriented x3 Resp: COMMON NORMALS: normal respiratory effort, No retractions and No use of accessory muscles AUSCULTATION: crackles and wheezes Cardio: COMMON NORMALS: regular rate, regular rhythm, S1 normal heart sound present and S2 normal heart sound present RATE: regular rate RHYTHM: r egular rhythm HEART SOUNDS: S1 normal heart sound present and S2 normal heart sound present GI: COMMON NORMALS: Normal to inspection, nondistended, normoactive bowel sounds present and non-tender Extremity: COMMON NORMALS: no calf tenderness and no pedal edema Neuro: COMMON NORMALS: patient oriented x3 Psych: COMMON NORMALS: mental status grossly normal Urinary Catheter Management: Finney: Cath Placed During This Visit: yes Reason for Continuing Indwelling Catheter: Accurate Measurement of Urinary Output in Critically Ill Patients Urinary Catheter Date of Insertion: 07/05/25 Urinary Catheter Time of Insertion: 08:19 Data 07/08/25 03:54 07/08/25 03:54 Micro: Microbiology 07/05/25 08:20 Gram Stain - Final Sputum - Endotracheal Wash Sputum Culture - Final A&P Assessment and plan 1. Tobacco abuse: 2. COPD (chronic obstructive pulmonary disease): 3. Acute hypoxemic respiratory failure: 4. COPD with acute exacerbation: 5. Acute hypoxic respiratory failure: 6. Sepsis: 7. Pneumonia: 8. Transaminitis: 9. NSTEMI (non-ST elevated myocardial infarction): Plan: Acute hypoxic respiratory failure - Secondary to COPD exacerbation -secondary to pneumonia - With evidence of sepsis - With evidence of NSTEMI -Systolic CHF in exacerbation - S/p extubation 07/07/2025 CTA FINDINGS: Tubes, catheters and devices: Endotracheal tube is in place. The distal tip projects superior to the chaitanya. Nasogastric tube is in place. The distal tip terminates in the cardia of the stomach. Pulmonary arteries: There is no definite pulmonary arterial filling defect appreciated. The main pulmonary artery is normal in caliber. Aorta: The thoracic aorta is normal in caliber with mild marginal atherosclerotic calcification. Thyroid: There is multinodular thyroid goiter. Discrete thyroid nodules are not well delineated today given the phase of contrast. Lungs: There is smooth wall bronchial thickening present throughout. Mild posterior bibasilar atelectasis is present. There is some isolated regions of ground-glass opacity within the dorsal aspect of the left upper lobe and patchy in more centrally throughout the right lower lobe. There is very mild architectural changes of centrilobular emphysema. Pleural spaces: Unremarkable. No pneumothorax. No pleural effusion. Heart: Unremarkable. No cardiomegaly. No pericardial effusion. Coronary arteries: There is coronary artery calcification. Lymph nodes: Unremarkable. No enlarged lymph nodes. Gallbladder and biliary ducts: There is mild gallbladder distension with cholelithiasis. Bones/joints: There is dextroscoliosis of the thoracic spine. There is no acute osseous abnormality seen. There is a chronic inferior endplate compression fracture deformity of the L1 vertebral body with 20% height loss, stable. 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 Soft tissues: Unremarkable. Plan - Currently on nasal cannula -Recommend BiPAP as needed during the day, scheduled during the night -Precedex for agitation, weaned off - Morphine 30 mg ER twice daily -Patient is on clonazepam 1 mg twice daily for many years, but she takes it as needed - Consult pulmonary - Vancomycin - Meropenem - Blood cultures - Sputum cultures - Solu-Medrol 40 mg IV every 8 hours, de-escalate to prednisone 40 mg daily - De-escalate to DVT prophylax Lovenox - Aspirin, statin -Requiring intermittent diuresis -Transaminitis, monitor - Maintain MAP more than 65 - Full code - Lovenox for DVT prophylaxis NSTEMI -Type I versus type II NSTEMI -Systolic CHF CONCLUSIONS Technically difficult echo with suboptimal images. Patient with respiratory failure and in ICU. Mildly dilated LV cavity with moderately reduced LV systolic function. LVEF estimated at 45%. Wall motion abnormalities as above Right ventricle appears to be of normal size with normal RV systolic function. Mild mitral regurgitation. With the suboptimal images right heart and pulmonary pressure could not be assessed accurately. - Aspirin, statin -Completed therapeutic Lovenox for 48 hours - De-escalate to DVT prophylaxis Lovenox - Patient declines cardiac testing, discussed morbidity and mortality, she voiced understanding, all questions answered, shared decision making, agreed to proceed Multifocal atrial tachycardia - Likely sepsis associated with COPD - Will consider beta-fausto PDMP PDMP Reviewed: Last Reviewed 07/05/25 13:11 by Mark Jaramillo MD Attestations 2 Medical Necessity Statement*: Patient requires hospitalization for acute hypoxic respiratory failure secondary to COPD,, pneumonia, NSTEMI Diagnoses Tobacco abuse Z72.0 COPD (chronic obstructive pulmonary disease) J44.9 Acute hypoxemic respiratory failure J96.01 COPD with acute exacerbation J44.1 Acute hypoxic respiratory failure J96.01 Sepsis A41.9 Pneumonia J18.9 Transaminitis R74.01 NSTEMI (non-ST elevated myocardial infarction) I21.4
--- NOTE | 2025-07-08 16:08 | PC.NURSE ---
episodes of anxiety today and frequent request for other medication for smoking and also for diarrhea doctor notified with order related
--- NOTE | 2025-07-08 20:13 | PC.NURSE ---
Report called to Lindy Diaz on medsurg, patient transferred to [facility] [place] at 1955, all belongings with patient.
[2025-07-09] VITALS (17 sets, daily range): BP systolic 132–194; BP diastolic 57–94; PULSE 61–87; RESP 16–25; TEMP 36.4–37.2; O2SAT 90–99
[2025-07-09 03:59] LABS: Hematocrit 40.7 % (36-47); Hemoglobin 13.10 g/dL (11.27-16.99); Mean Corpuscular HGB Conc 32.2 g/dL (30-55); Mean Corpuscular Hemoglobin 31.0 pg (27-33); Mean Corpuscular Volume 96.4 fl (85-98); Nucleated Red Blood Cells % 0 %; Platelet Count 191 10^3/cmm (157-399); Red Blood Count 4.22 10^6/uL (3.85-5.65); White Blood Count 11.64 10^3/uL (3.29-11.43)
[2025-07-09 04:27] LABS: Alanine Aminotransferase 66 U/L (0-33); Albumin Level 3.8 g/dL (3.5-5.2); Alkaline Phosphatase 81 U/L (35-105); Anion Gap 10.7 (5-19); Aspartate Amino Transferase 21 U/L (0-32); Blood Urea Nitrogen 18 mg/dL (8-23); Calcium 8.7 mg/dL (8.5-10.5); Carbon Dioxide 32 mmol/L (22-29); Chloride 105 mmol/L (98-107); Globulin 1.7 g/dL (1.3-4.6); Glucose 89 mg/dL (65-115); Osmolality Calculated 299 mOsm/kg (285-295); Potassium 3.7 mmol/L (3.5-5.1); Sodium 144 mmol/L (136-145); Total Protein 5.5 g/dL (6.6-8.7)
[2025-07-09 04:32] LABS: NT Pro B Type Natriuretic Pept 3032 pg/mL (0-125)
[2025-07-09] MEDS: morphine ER (12 HR) 30 mg tablet PO ×2 (07:05→19:48)
[2025-07-09] MEDS: ondansetron 2 mg/ML SDV 2 mL 4 MG IVP (10:12)
--- NOTE | 2025-07-09 11:01 | P.PN_ITS ---
Subjective 2 Subjective: Patient was seen this morning, alert oriented x 3, following all commands does report shortness of breath, cough, feeling nauseous no chest pain, no palpitations, does feel anxious, she tells me that she has a history of being active all the time, her mind is very active so uses clonazepam 0.5mg BID prn, clonazepam 1mg bedtime prn, hydroxyzine 12.5mg po bedtime, Vitals/I&O/Wt Last Vital Signs Temp 98.3 F 07/09/25 07:16 Pulse 71 07/09/25 07:46 Resp 20 H 07/09/25 07:30 BP 168/80 07/09/25 07:16 Pulse Ox 98 07/09/25 08:00 O2 Del Method Room Air 07/09/25 07:30 O2 Flow Rate 1 07/08/25 04:41 FiO2 28 07/09/25 00:00 07/08/25 07/09/25 07/09/25 22:59 06:59 14:59 Intake Total 850 / 1372.067 100 / 100 Output Total 1200 / 1200 600 / 1800 Balance -350 / 172.067 -600 / -427.933 100 / 100 Weight last 48 hrs Weight 79 kg Weight 76.5 kg Physical Exam 2 Const: COMMON NORMALS: no acute distress and patient oriented x3 HENMT: COMMON NORMALS: normocephalic HEAD & SCALP: normocephalic Neck/C-Spine: COMMON NORMALS: no JVD Resp: COMMON NORMALS: normal respiratory effort, No retractions, No use of accessory muscles and clear to auscultation bilaterally AUSCULTATION: clear to auscultation bilaterally Cardio: COMMON NORMALS: no JVD, regular rate, regular rhythm, S1 normal heart sound present and S2 normal heart sound present RATE: regular rate RHYTHM: regular rhythm HEART SOUNDS: S1 normal heart sound present and S2 normal heart sound present GI: COMMON NORMALS: Normal to inspection, nondistended, normoactive bowel sounds present and non-tender Extremity: COMMON NORMALS: no calf tenderness and no pedal edema Neuro: COMMON NORMALS: patient oriented x3 Psych: COMMON NORMALS: mental status grossly normal Urinary Catheter Management: Finney: Cath Placed During This Visit: yes Reason for Continuing Indwelling Catheter: Accurate Measurement of Urinary Output in Critically Ill Patients Urinary Catheter Date of Insertion: 07/05/25 Urinary Catheter Time of Insertion: 08:19 Data 07/09/25 03:37 07/09/25 03:37 Micro: Microbiology 07/05/25 08:15 Blood Culture - Preliminary Blood Aerococcus viridans A&P Assessment and plan 1. Tobacco abuse: 2. COPD (chronic obstructive pulmonary disease): 3. Acute hypoxemic respiratory failure: 4. COPD with acute exacerbation: 5. Acute hypoxic respiratory failure: 6. Sepsis: 7. Pneumonia: 8. Transaminitis: 9. NSTEMI (non-ST elevated myocardial infarction): Plan: Acute hypoxic respiratory failure - Secondary to COPD exacerbation -secondary to pneumonia - With evidence of sepsis - With evidence of NSTEMI -Systolic CHF in exacerbation - S/p extubation 07/07/2025 CTA FINDINGS: Tubes, catheters and devices: Endotracheal tube is in place. The distal tip projects superior to the chaitanya. Nasogastric tube is in place. The distal tip terminates in the cardia of the stomach. Pulmonary arteries: There is no definite pulmonary arterial filling defect appreciated. The main pulmonary artery is normal in caliber. Aorta: The thoracic aorta is normal in caliber with mild marginal atherosclerotic calcification. Thyroid: There is multinodular thyroid goiter. Discrete thyroid nodules are not well delineated today given the phase of contrast. Lungs: There is smooth wall bronchial thickening present throughout. Mild posterior bibasilar atelectasis is present. There is some isolated regions of ground-glass opacity within the dorsal aspect of the left upper lobe and patchy in more centrally throughout the right lower lobe. There is very mild architectural changes of centrilobular emphysema. Pleural spaces: Unremarkable. No pneumothorax. No pleural effusion. Heart: Unremarkable. No cardiomegaly. No pericardial effusion. Coronary arteries: There is coronary artery calcification. Lymph nodes: Unremarkable. No enlarged lymph nodes. Gallbladder and biliary ducts: There is mild gallbladder distension with cholelithiasis. Bones/joints: There is dextroscoliosis of the thoracic spine. There is no acute osseous abnormality seen. There is a chronic inferior endplate compression fracture deformity of the L1 vertebral body with 20% height loss, stable. 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 Soft tissues: Unremarkable. Plan - Currently on nasal cannula -Recommend BiPAP as needed during the day, scheduled during the night -Precedex for agitation, weaned off - Morphine 30 mg ER twice daily - Continue home clonazepam - Consult pulmonary - Vancomycin - Meropenem - Blood cultures - Sputum cultures - Solu-Medrol 40 mg IV every 8 hours, de-escalate to prednisone 40 mg daily - De-escalate to DVT prophylax Lovenox - Aspirin, statin -Requiring intermittent diuresis -Transaminitis, monitor - Maintain MAP more than 65 - Full code - Lovenox for DVT prophylaxis Aerococcus viridans - 1 out of 4 blood cultures positive - Contamination versus real infection - Repeat blood cultures - Continue antibiotics as above NSTEMI -Type I versus type II NSTEMI -Systolic CHF CONCLUSIONS Technically difficult echo with suboptimal images. Patient with respiratory failure and in ICU. Mildly dilated LV cavity with moderately reduced LV systolic function. LVEF estimated at 45%. Wall motion abnormalities as above Right ventricle appears to be of normal size with normal RV systolic function. Mild mitral regurgitation. With the suboptimal images right heart and pulmonary pressure could not be assessed accurately. - Aspirin, statin -Completed therapeutic Lovenox for 48 hours - De-escalate to DVT prophylaxis Lovenox - Patient declines cardiac testing, discussed morbidity and mortality, she voiced understanding, all questions answered, shared decision making, agreed to proceed Multifocal atrial tachycardia - Likely sepsis associated with COPD - Will consider beta-fausto PDMP PDMP Reviewed: Last Reviewed 07/05/25 13:11 by Mark Jaramillo MD Attestations 2 Medical Necessity Statement*: Patient requires hospitalization for respiratory failure, COPD, Aerococcus viridans blood cultures positive, NSTEMI Diagnoses Tobacco abuse Z72.0 COPD (chronic obstructive pulmonary disease) J44.9 Acute hypoxemic respiratory failure J96.01 COPD with acute exacerbation J44.1 Acute hypoxic respiratory failure J96.01 Sepsis A41.9 Pneumonia J18.9 Transaminitis R74.01 NSTEMI (non-ST elevated myocardial infarction) I21.4
[2025-07-10] VITALS (14 sets, daily range): BP systolic 156–186; BP diastolic 70–83; PULSE 60–83; RESP 17–19; TEMP 36.7–37.1; O2SAT 90–100
[2025-07-10 05:30] LABS: Hematocrit 43.3 % (36-47); Hemoglobin 13.80 g/dL (11.27-16.99); Mean Corpuscular HGB Conc 31.9 g/dL (30-55); Mean Corpuscular Hemoglobin 31.4 pg (27-33); Mean Corpuscular Volume 98.4 fl (85-98); Nucleated Red Blood Cells % 0 %; Platelet Count 219 10^3/cmm (157-399); Red Blood Count 4.40 10^6/uL (3.85-5.65); White Blood Count 10.17 10^3/uL (3.29-11.43)
[2025-07-10 05:52] LABS: Alanine Aminotransferase 53 U/L (0-33); Albumin Level 3.6 g/dL (3.5-5.2); Alkaline Phosphatase 80 U/L (35-105); Anion Gap 8.0 (5-19); Aspartate Amino Transferase 17 U/L (0-32); Blood Urea Nitrogen 16 mg/dL (8-23); Calcium 8.5 mg/dL (8.5-10.5); Carbon Dioxide 36 mmol/L (22-29); Chloride 105 mmol/L (98-107); Globulin 2.1 g/dL (1.3-4.6); Glucose 94 mg/dL (65-115); Osmolality Calculated 301 mOsm/kg (285-295); Potassium 4.0 mmol/L (3.5-5.1); Sodium 145 mmol/L (136-145); Total Protein 5.7 g/dL (6.6-8.7)
[2025-07-10 05:55] LABS: NT Pro B Type Natriuretic Pept 2862 pg/mL (0-125)
--- NOTE | 2025-07-10 07:00 | PC.NURSE ---
pt wanting to wait until 0900 to take 0700 Morphine
[2025-07-10] MEDS: morphine ER (12 HR) 30 mg tablet PO ×2 (07:59→18:10)
--- NOTE | 2025-07-10 10:12 | PC.SOCIAL ---
IMM Updated Updated pt on IMM. No questions voiced. Provided pt a copy. Initialed, dated, & timed copy in chart.
--- NOTE | 2025-07-10 13:48 | P.PN_ITS ---
Subjective 2 Subjective: on 2L Vitals/I&O/Wt Last Vital Signs Temp 98.0 F 07/10/25 11:45 Pulse 79 07/10/25 11:45 Resp 19 H 07/10/25 11:45 BP 179/79 07/10/25 11:45 Pulse Ox 91 07/10/25 11:45 O2 Del Method Nasal Cannula 07/10/25 11:45 O2 Flow Rate 2 07/10/25 08:15 FiO2 28 07/09/25 00:00 07/09/25 07/10/25 07/10/25 22:59 06:59 14:59 Intake Total 250 / 720 360 / 360 Output Total 2950 / 2950 200 / 3150 600 / 600 Balance -2950 / -2480 50 / -2430 -240 / -240 Weight last 48 hrs Weight 79.379 kg Weight 79 kg Physical Exam 2 Const: COMMON NORMALS: no acute distress and patient oriented x3 HENMT: COMMON NORMALS: normocephalic HEAD & SCALP: normocephalic Neck/C-Spine: COMMON NORMALS: no JVD Resp: COMMON NORMALS: normal respiratory effort, No retractions, No use of accessory muscles and clear to auscultation bilaterally AUSCULTATION: clear to auscultation bilaterally Cardio: COMMON NORMALS: no JVD, regular rate, regular rhythm, S1 normal heart sound present and S2 normal heart sound present RATE: regular rate RHYTHM: regular rhythm HEART SOUNDS: S1 normal heart sound present and S2 normal heart sound present GI: COMMON NORMALS: Normal to inspection, nondistended, normoactive bowel sounds present and non-tender Extremity: COMMON NORMALS: no calf tenderness and no pedal edema Neuro: COMMON NORMALS: patient oriented x3 Psych: COMMON NORMALS: mental status grossly normal Urinary Catheter Management: Finney: Cath Placed During This Visit: yes, but has since been removed by the nurse Reason for Continuing Indwelling Catheter: Decision to DC Catheter Urinary Catheter Date of Insertion: 07/05/25 Urinary Catheter Time of Insertion: 08:19 Date Urinary Catheter Removed: 07/10/25 Time Urinary Catheter Discontinued: 09:16 Data 07/10/25 05:05 07/10/25 05:05 Micro: Microbiology 07/09/25 12:50 Blood Culture - Preliminary Blood NEGATIVE TO DATE 07/09/25 12:51 Blood Culture - Preliminary Blood NEGATIVE TO DATE 07/05/25 08:43 Blood Culture - Final Blood NO GROWTH AFTER 5 DAYS 07/05/25 08:15 Blood Culture - Final Blood Aerococcus viridans A&P Assessment and plan 1. COPD (chronic obstructive pulmonary disease): Plan: 1. Tobacco abuse: 2. COPD (chronic obstructive pulmonary disease): 3. Acute hypoxemic respiratory failure: 4. COPD with acute exacerbation: 5. Acute hypoxic respiratory failure: 6. Sepsis: 7. Pneumonia: 8. Transaminitis: 9. NSTEMI (non-ST elevated myocardial infarction): Plan: Acute hypoxic respiratory failure - Secondary to COPD exacerbation -secondary to pneumonia - With evidence of sepsis - With evidence of NSTEMI -Systolic CHF in exacerbation - S/p extubation 07/07/2025 CTA FINDINGS: Tubes, catheters and devices: Endotracheal tube is in place. The distal tip projects superior to the chaitanya. Nasogastric tube is in place. The distal tip terminates in the cardia of the stomach. Pulmonary arteries: There is no definite pulmonary arterial filling defect appreciated. The main pulmonary artery is normal in caliber. Aorta: The thoracic aorta is normal in caliber with mild marginal atherosclerotic calcification. Thyroid: There is multinodular thyroid goiter. Discrete thyroid nodules are not well delineated today given the phase of contrast. Lungs: There is smooth wall bronchial thickening present throughout. Mild posterior bibasilar atelectasis is present. There is some isolated regions of ground-glass opacity within the dorsal aspect of the left upper lobe and patchy in more centrally throughout the right lower lobe. There is very mild architectural changes of centrilobular emphysema. Pleural spaces: Unremarkable. No pneumothorax. No pleural effusion. Heart: Unremarkable. No cardiomegaly. No pericardial effusion. Coronary arteries: There is coronary artery calcification. Lymph nodes: Unremarkable. No enlarged lymph nodes. Gallbladder and biliary ducts: There is mild gallbladder distension with cholelithiasis. Bones/joints: There is dextroscoliosis of the thoracic spine. There is no acute osseous abnormality seen. There is a chronic inferior endplate compression fracture deformity of the L1 vertebral body with 20% height loss, stable. 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 Soft tissues: Unremarkable. Plan - Currently on nasal cannula -Recommend BiPAP as needed during the day, scheduled during the night -Precedex for agitation, weaned off - Morphine 30 mg ER twice daily - Continue home clonazepam - Consult pulmonary - Vancomycin - Meropenem - Blood cultures - Sputum cultures - Solu-Medrol 40 mg IV every 8 hours, de-escalate to prednisone 40 mg daily - De-escalate to DVT prophylax Lovenox - Aspirin, statin -Requiring intermittent diuresis -Transaminitis, monitor - Maintain MAP more than 65 - Full code - Lovenox for DVT prophylaxis Aerococcus viridans - 1 out of 4 blood cultures positive - Contamination versus real infection - Repeat blood cultures - Continue antibiotics as above NSTEMI -Type I versus type II NSTEMI -Systolic CHF CONCLUSIONS Technically difficult echo with suboptimal images. Patient with respiratory failure and in ICU. Mildly dilated LV cavity with moderately reduced LV systolic function. LVEF estimated at 45%. Wall motion abnormalities as above Right ventricle appears to be of normal size with normal RV systolic function. Mild mitral regurgitation. With the suboptimal images right heart and pulmonary pressure could not be assessed accurately. - Aspirin, statin -Completed therapeutic Lovenox for 48 hours - De-escalate to DVT prophylaxis Lovenox - Patient declines cardiac testing, discussed morbidity and mortality, she voiced understanding, all questions answered, shared decision making, agreed to proceed Multifocal atrial tachycardia - Likely sepsis associated with COPD - Will consider beta-fausto dispo: salomón soon PDMP PDMP Reviewed: Not Reviewed Attestations 2 Medical Necessity Statement*: treatment of copd Coding Level of Care Code 26890 Diagnoses COPD (chronic obstructive pulmonary disease) J44.9
[2025-07-11] VITALS (18 sets, daily range): BP systolic 130–185; BP diastolic 70–95; PULSE 73–93; RESP 16–21; TEMP 36.4–36.7; O2SAT 92–98
--- NOTE | 2025-07-11 05:29 | PC.NURSE ---
Pt refused nicotine patch today due to it making her feel nauseated last time.
[2025-07-11 05:47] LABS: Hematocrit 44.8 % (36-47); Hemoglobin 14.20 g/dL (11.27-16.99); Mean Corpuscular HGB Conc 31.7 g/dL (30-55); Mean Corpuscular Hemoglobin 30.7 pg (27-33); Mean Corpuscular Volume 96.8 fl (85-98); Nucleated Red Blood Cells % 0 %; Platelet Count 224 10^3/cmm (157-399); Red Blood Count 4.63 10^6/uL (3.85-5.65); White Blood Count 12.09 10^3/uL (3.29-11.43)
[2025-07-11 06:07] LABS: Alanine Aminotransferase 45 U/L (0-33); Albumin Level 3.8 g/dL (3.5-5.2); Alkaline Phosphatase 85 U/L (35-105); Anion Gap 14.6 (5-19); Aspartate Amino Transferase 15 U/L (0-32); Blood Urea Nitrogen 17 mg/dL (8-23); Calcium 8.9 mg/dL (8.5-10.5); Carbon Dioxide 30 mmol/L (22-29); Chloride 104 mmol/L (98-107); Creatinine Clr Calc Pharmacy 63.9569; Globulin 2.2 g/dL (1.3-4.6); Glucose 98 mg/dL (65-115); Osmolality Calculated 302 mOsm/kg (285-295); Potassium 3.6 mmol/L (3.5-5.1); Sodium 145 mmol/L (136-145); Total Protein 6.0 g/dL (6.6-8.7)
[2025-07-11 06:14] LABS: NT Pro B Type Natriuretic Pept 1725 pg/mL (0-125)
[2025-07-11] MEDS: morphine ER (12 HR) 30 mg tablet PO ×2 (06:39→18:09)
--- NOTE | 2025-07-11 08:46 | PC.NURSE ---
Patient refused second breakfast tray
--- NOTE | 2025-07-11 13:06 | PM.DCS ---
Discharge Providers Date of Admission: 07/05/25 09:31 Date of Discharge: July 11, 2025 Attending Provider at Admission: Mark Jaramillo MD Attending Provider at Discharge: Berry Valentin MD Primary Care Provider: SLOAN Terry Diagnoses at Discharge Discharge Diagnosis 1. COPD (chronic obstructive pulmonary disease): Reason for Visit Reason for Visit: Severe Resp Distress Hospital Course Hospital Course 70-year-old female with history of COPD, CKD, hypothyroidism, CAD who presented on 1125 with complaints of shortness of breath.She was admitted for COPD exacerbation pneumonia transaminitis also noted maybe to have an elevated troponin. She was initially intubated on mechanical ventilation. Pulmonary was consulted. She was started on IV steroids. Echo was done. During her hospitalization she was able to be weaned. Her labs were monitored closely. She was extubated on 1127. She was weaned to room air. Her symptoms were stable. The patient did report some difficulty ambulating although she worked with therapy and did okay. She does report having a walker. At time of discharge she was on room air. She was transition to oral medications. And she was discharged in stable condition. The patient did report that she wanted to stay longer because she was waiting for a bed to be delivered at her home. She does report having a and family at home Physical Exam Const: COMMON NORMALS: no acute distress and patient oriented x3 HENMT: COMMON NORMALS: normocephalic HEAD & SCALP: normocephalic Neck/C-Spine: COMMON NORMALS: no JVD Resp: COMMON NORMALS: normal respiratory effort, No retractions, No use of accessory muscles and clear to auscultation bilaterally AUSCULTATION: clear to auscultation bilaterally Cardio: COMMON NORMALS: no JVD, regular rate, regular rhythm, S1 normal heart sound present and S2 normal heart sound present RATE: regular rate RHYTHM: regular rhythm HEART SOUNDS: S1 normal heart sound present and S2 normal heart sound present GI: COMMON NORMALS: Normal to inspection, nondistended, normoactive bowel sounds present and non-tender Extremity: COMMON NORMALS: no calf tenderness and no pedal edema Neuro: COMMON NORMALS: patient oriented x3 Psych: COMMON NORMALS: mental status grossly normal Urinary Catheter Management: Finney: Cath Placed During This Visit: yes, but has since been removed by the nurse Reason for Continuing Indwelling Catheter: Decision to DC Catheter Urinary Catheter Date of Insertion: 07/05/25 Urinary Catheter Time of Insertion: 08:19 Date Urinary Catheter Removed: 07/10/25 Time Urinary Catheter Discontinued: 09:16 Discharge Data Studies Completed and Pending Completed Studies During Hospitalization Category Date Time Status CT angio chest PE protcl [id number] Stat Cat Scan 07/05/25 09:25 Completed CXRP [XR chest 1V portable [id number]] Stat Exams 07/05/25 10:41 Completed XR chest 1V portable [id number] Routine Exams 07/07/25 07:00 Completed XR chest 1V portable [id number] Stat Exams 07/05/25 08:02 Completed CV. echo complete* [id number] Routine Ultrasound 07/05/25 10:12 Completed Pending at discharge Category Date Time Status Blood Culture Stat Lab 07/09/25 12:51 Results Radiology Impressions Chest CTA 07/05/25 09:25 IMPRESSION: 1. No definite CTA evidence of pulmonary embolus. 2. Bronchitis 3. Patchy ground-glass opacity likely inflammatory in nature/multifocal pneumonia. 4. Very mild architectural changes of centrilobular emphysema. 5. Cholelithiasis with gallbladder distension. 6. Multinodular goiter. Consider thyroid ultrasound if not recently performed. COMMENTS: 1. Consistent with the [employer]'s Incidental Findings Committee white paper (J Am Delbert Radiol 2015): In patients aged 35 years and older with an incidental thyroid nodule equal to or greater than 1.[address], MRI or extrathyroidal US, further evaluation with dedicated thyroid US is recommended for patients with normal life expectancy and without comorbidities. For smaller nodules without suspicious features, no further evaluation or follow up is recommended. 2. The presence of pulmonary emphysema on CT is an independent risk factor for lung cancer. In the absence of a history or active diagnosis of lung cancer, it is recommended that this patient with emphysema be evaluated for enrollment in a low dose CT lung cancer screening program. Chest X-Ray 07/07/25 07:00 IMPRESSION: No acute cardiopulmonary abnormality. Laboratory Results WBC 12.09 10^3/uL (3.29-11.43) H 07/11/25 05:21 RBC 4.63 10^6/uL (3.85-5.65) 07/11/25 05:21 Hgb 14.20 g/dL (11.27-16.99) 07/11/25 05:21 Hct 44.8 % (36-47) 07/11/25 05:21 MCV 96.8 fl (85-98) 07/11/25 05:21 MCH 30.7 pg (27-33) 07/11/25 05:21 MCHC 31.7 g/dL (30-55) 07/11/25 05:21 RDW 12.7 % (12.1-15.1) 07/11/25 05:21 Plt Count 224 10^3/cmm (157-399) 07/11/25 05:21 MPV 10.0 fL (7.4-10.4) 07/11/25 05:21 Neut % (Auto) 58.1 % 07/11/25 05:21 Lymph % (Auto) 30.2 % 07/11/25 05:21 Lawrence % (Auto) 7.0 % 07/11/25 05:21 Eos % (Auto) 2.1 % 07/11/25 05:21 Baso % (Auto) 0.4 % 07/11/25 05:21 Neut # (Auto) 7.03 10^3/uL (1.8-7.7) 07/11/25 05:21 Lymph # (Auto) 3.7 10^3/uL (0.8-4.8) 07/11/25 05:21 Lawrence # (Auto) 0.9 10^3/uL (0.2-0.9) 07/11/25 05:21 Eos # (Auto) 0.3 10^3/uL (0.0-0.8) 07/11/25 05:21 Baso # (Auto) 0.1 10^3/uL (0.0-0.1) 07/11/25 05:21 Nucleated RBC % (auto) 0 % 07/11/25 05:21 Nucleated RBCs # 0.0 /100WBC 07/11/25 05:21 Specimen Type Arterial 07/06/25 04:00 Sample Site Brachial, right 07/06/25 04:00 ABG pH 7.45 (7.35-7.45) 07/06/25 04:00 ABG pCO2 41.5 mmHg (35-45) 07/06/25 04:00 ABG pO2 89.3 mmHg (80.0-100.0) 07/06/25 04:00 ABG PO2/FiO2 Ratio 255 07/06/25 04:00 ABG HCO3 28.7 mmol/L (22-26) H 07/06/25 04:00 ABG O2 Saturation 97.6 07/05/25 17:28 ABG Base Excess 4.2 mmol/L (-2.0-2.0) H 07/06/25 04:00 Diego Test Pos 07/06/25 04:00 A-a O2 Gradient 14.0 mmHg (5-10) H 07/05/25 17:28 Hematocrit 44.4 % (37-47) 07/06/25 04:00 Hgb O2 Saturation 96.4 % (95-100) 07/05/25 17:28 Carboxyhemoglobin 1.4 %THgb (0.4-20.1) 07/05/25 17:28 Methemoglobin < 0.0 % (0.4-1.5) L 07/05/25 17:28 Total Hemoglobin 14.3 g/dL (12-16) 07/05/25 17:28 Sodium 141.0 mmol/L (131-143) 07/05/25 17:28 Potassium 3.3 mmol/L (3.5-5.0) L 07/05/25 17:28 Glucose 146.0 mg/dL (70-115) H 07/05/25 17:28 Ionized Calcium 1.1 mmol/L (1.1-1.4) 07/05/25 17:28 O2 Delivery Device Vent 07/06/25 04:00 FiO2 35.0 % 07/06/25 04:00 Tidal Volume 0.34 07/06/25 04:00 PEEP 8.0 cmH20 07/06/25 04:00 Hearing Stenographer ID Bd 07/06/25 04:00 Sodium 145 mmol/L (136-145) 07/11/25 05:21 Potassium 3.6 mmol/L (3.5-5.1) 07/11/25 05:21 Chloride 104 mmol/L (98-107) 07/11/25 05:21 Carbon Dioxide 30 mmol/L (22-29) H 07/11/25 05:21 Anion Gap 14.6 (5-19) 07/11/25 05:21 BUN 17 mg/dL (8-23) 07/11/25 05:21 Creatinine 0.7 mg/dL (0.5-0.9) 07/11/25 05:21 GFR Calculation Not Reportable 07/11/25 05:21 Glucose 98 mg/dL (65-115) 07/11/25 05:21 POC Glucose 113 mg/dL (70-110) H 07/07/25 12:53 Estimat Average Glucose 103 07/05/25 12:02 Hemoglobin A1c 5.2 % (4.0-6.0) 07/05/25 12:02 Calculated Osmolality 302 mOsm/kg (285-295) H 07/11/25 05:21 Lactic Acid 1.1 mmol/L (0.5-2.2) 07/05/25 12:02 Lactate 1.0 mmol/L (0.5-2.2) 07/07/25 04:07 Calcium 8.9 mg/dL (8.5-10.5) 07/11/25 05:21 Phosphorus 2.1 mg/dL (2.5-4.5) L 07/08/25 03:54 Magnesium 2.6 mg/dL (1.7-2.3) H 07/08/25 03:54 Total Bilirubin 0.7 mg/dL (0.15-1.2) 07/11/25 05:21 AST 15 U/L (0-32) 07/11/25 05:21 ALT 45 U/L (0-33) H 07/11/25 05:21 Alkaline Phosphatase 85 U/L (35-105) 07/11/25 05:21 Creatine Kinase 63 U/L (26-192) 07/07/25 07:13 Troponin T Baseline 27 ng/L (0-10) H 07/07/25 09:30 Troponin T 120 Minute 22.74 ng/L (0-10) H 07/07/25 11:37 Delta Troponin T -4.26 ABS# (0-10) L 07/07/25 11:37 Troponin T Hi Sens 6Hr 32.25 ng/L (0-10) H 07/07/25 16:33 Troponin T Hi Sens 6Hr Delta 5.25 ng/L (0-12) 07/07/25 16:33 C-Reactive Protein 3.0 mg/L (0.0-4.9) 07/11/25 05:21 NT-Pro-B Natriuret Pep 1725 pg/mL (0-125) H 07/11/25 05:21 Total Protein 6.0 g/dL (6.6-8.7) L 07/11/25 05:21 Albumin 3.8 g/dL (3.5-5.2) 07/11/25 05:21 Globulin 2.2 g/dL (1.3-4.6) 07/11/25 05:21 Triglycerides 52 mg/dL (0-150) 07/05/25 12:02 Cholesterol 132 mg/dL (0-200) 07/05/25 12:02 LDL Cholesterol, Calc 67 mg/dL (50-129) 07/05/25 12:02 HDL Cholesterol 55 mg/dL (60-100) L 07/05/25 12:02 LDL/HDL Ratio 1.22 RATIO (0.00-3.22) 07/05/25 12:02 Cholesterol/HDL Ratio 2.40 mg/dL (0.0-4.40) 07/05/25 12:02 Procalcitonin 0.29 ng/mL (0-0.5) 07/08/25 03:54 Procalcitonin Cancelled 07/08/25 03:54 TSH 0.80 uIU/mL (0.27-4.20) 07/05/25 12:02 Urine Color Yellow (Yellow) 07/05/25 08:15 Urine Appearance Clear (CLEAR) 07/05/25 08:15 Urine pH 5.5 (5-7) 07/05/25 08:15 Ur Specific [place] 1.017 (1.005-1.030) 07/05/25 08:15 Urine Protein 2+ (Negative) A 07/05/25 08:15 Urine Glucose (UA) Trace (Normal) H 07/05/25 08:15 Urine Ketones Negative (Negative) 07/05/25 08:15 Urine Blood 1+ (Negative) A 07/05/25 08:15 Urine Nitrate Negative (Negative) 07/05/25 08:15 Urine Bilirubin Negative (Negative) 07/05/25 08:15 Urine Urobilinogen 1.0 mg/dL (Negative) 07/05/25 08:15 Ur Leukocyte Esterase Negative (Negative) 07/05/25 08:15 Urine RBC 3-5 /hpf (0-2) 07/05/25 08:15 Urine WBC 0-5 /hpf (0-5) 07/05/25 08:15 Ur Squamous Epith Cells 0-5 /hpf (0-5) 07/05/25 08:15 Amorphous Sediment Not Reportable 07/05/25 08:15 Urine Bacteria None seen /hpf (NONE) 07/05/25 08:15 Hyaline Casts 12.81 /lpf 07/05/25 08:15 Nasal MRSA (PCR) Not detected (Not Detecte) 07/05/25 14:15 Vancomycin Trough 15.4 ug/mL (10-15) H 07/11/25 01:01 Influenza A (PCR) Negative (Negative) 07/05/25 08:15 Influenza Type B (PCR) Negative (Negative) 07/05/25 08:15 RSV (PCR) Negative (Negative) 07/05/25 08:15 SARS-CoV-2 (PCR) Negative (Negative) 07/05/25 08:15 Vitals Last Vital Signs Temp 97.8 F 07/11/25 11:37 Pulse 80 07/11/25 11:37 Resp 18 07/11/25 11:37 BP 176/81 07/11/25 11:37 Pulse Ox 94 07/11/25 11:37 O2 Del Method Room Air 07/11/25 11:30 O2 Flow Rate 1 07/11/25 00:45 FiO2 28 07/09/25 00:00 Discharge Plan Discharge Patient Disposition: Home Condition: Stable Prescriptions: New atorvastatin 40 mg Tablet 40 mg PO BEDTIME Qty: 30 0RF nicotine 14 mg/24 hr Patch 24 Hour 1 patch transdermal DAILY Qty: 30 0RF aspirin 81 mg Tablet,Delayed Release (Dr/Ec) 81 mg PO DAILY Qty: 30 0RF metoprolol tartrate 25 mg Tablet 12.5 mg PO Q12H Qty: 60 0RF amoxicillin-pot clavulanate 875-125 mg tablet 1 tab PO Q12H Qty: 10 0RF prednisone 10 mg tablet 10 mg PO DIRECTED Qty: 30 0RF Rx Instructions: see taper instructions: 20mg po daily x 1 week, then 10mg po qday Continued Advanced Probiotic 625 mg (10 billion cell) capsule 1 cap PO .2 times day Qty: 60 2RF Aspercreme (lidocaine) 4 % aerosol,spray 1 spray topical .2 times Qty: 113 0RF (DME) inogen oxygen 3L NC See Rx Instructions .Route .MEDSUPPLY Qty: 1 0RF Rx Instructions: As directed morphine 30 mg tablet extended release 30 mg PO Q12H clonazepam [Klonopin] 1 mg tablet 1 mg PO BID PRN (Reason: anxiety) Qty: 60 2RF Breztri Aerosphere 160-9-4.8 mcg/actuation HFA aerosol inhaler 2 inh inhalation BID Qty: 10.7 2RF escitalopram oxalate [Lexapro] 20 mg tablet 20 mg PO DAILY Qty: 30 2RF potassium chloride 10 mEq capsule, extended release 10 meq PO DAILY PRN (Reason: with fluid pill) Qty: 30 2RF triamcinolone acetonide 0.1 % cream 1 applic topical BID Qty: 80 0RF Rx Instructions: apply to legs methimazole 5 mg tablet 5 mg PO .COMPLEX Qty: 30 2RF Rx Instructions: 5 mg orally 5 days week hold 2 day nitroglycerin 0.4 mg tablet, sublingual 0.4 mg sublingual Q5M PRN (Reason: chest pain) Qty: 25 0RF Rx Instructions: do not exceed 3 doses per episode (DME) nebulizers [AeroEclipse II Nebulizer] [facility] See Rx Instructions .Route Qty: 1 0RF Rx Instructions: As directed ipratropium-albuterol 0.5 mg-3 mg(2.5 mg base)/3 mL solution for nebulization 3 ml inhalation Q6H PRN (Reason: wheezing) Qty: 180 2RF Rx Instructions: stop albuterol albuterol sulfate [Ventolin HFA] 90 mcg/actuation HFA aerosol inhaler 2 puff INHALATION Q4H PRN (Reason: shortness of breath or wheezing) Qty: 18 2RF diphenoxylate-atropine [Lomotil] 2.5-0.025 mg tablet 1 tab PO BID PRN (Reason: diarrhea) Qty: 60 0RF baclofen 20 mg tablet 20 mg PO DAILY Qty: 30 2RF ketorolac 10 mg tablet 10 mg PO DAILY PRN (Reason: pain) Qty: 10 0RF Rx Instructions: Do not take with Relafen ergocalciferol (vitamin D2) 1,250 mcg (50,000 unit) capsule 1,250 mcg PO .weekly Qty: 4 2RF Discontinued prednisone 5 mg tablet 5 mg PO DAILY Qty: 20 0RF Discharge Order = DC NOW: Discharge Order (Routine); Ordered 07/11/25 Ordered By: Berry Valentin Referrals: Myron Jacobs, INSURANCE REPRESENTATIVE-C [Primary Care Provider, [facility]] - 07/19/25 3:00 pm Discharge Diet: Cardiac Patient Instructions: Metoprolol (By mouth), Prednisone (By mouth), Amoxicillin/Clavulanate Potassium (By mouth), Heart Attack (GEN), Opioid Safety, Patient Portal & Dashawn Instructions Plan of Treatment: followup with pcp, take medications as prescribed Discharge Attestations Time Spent in Discharge Care*: greater than 30 min Quality Metrics Clinical Quality Measures [ Acute Myocardial Infaction { Clinical Trial Participant: No; Contraindication to aspirin: None; Aspirin prescribed; Contraindication to statin: None; Statin prescribed;}] Coding Level of Care Code 72495 Diagnoses COPD (chronic obstructive pulmonary disease) J44.9
[2025-07-12] VITALS (15 sets, daily range): BP systolic 131–168; BP diastolic 68–95; PULSE 66–98; RESP 16–20; TEMP 36.4–36.8; O2SAT 92–96
--- NOTE | 2025-07-12 05:27 | PC.NURSE ---
Pt refused nicotine patch today due to it upsetting her stomach last time.
[2025-07-12] MEDS: morphine ER (12 HR) 30 mg tablet PO ×2 (06:50→18:25)
--- NOTE | 2025-07-12 12:46 | P.PN_ITS ---
Subjective 2 Subjective: reports cough that is dry wants to walk longer Vitals/I&O/Wt Last Vital Signs Temp 97.6 F 07/12/25 11:45 Pulse 90 07/12/25 11:45 Resp 20 H 07/12/25 11:45 BP 168/85 07/12/25 11:45 Pulse Ox 96 07/12/25 11:45 O2 Del Method Room Air 07/12/25 11:26 O2 Flow Rate 1 07/11/25 00:45 FiO2 28 07/09/25 00:00 07/11/25 07/12/25 07/12/25 22:59 06:59 14:59 Intake Total 360 / 875 250 / 1125 240 / 240 Balance 360 / 875 250 / 1125 240 / 240 Weight last 48 hrs Weight 82.1 kg Weight 80.739 kg Physical Exam 2 Const: COMMON NORMALS: no acute distress and patient oriented x3 HENMT: COMMON NORMALS: normocephalic HEAD & SCALP: normocephalic Neck/C-Spine: COMMON NORMALS: no JVD Resp: COMMON NORMALS: normal respiratory effort, No retractions, No use of accessory muscles and clear to auscultation bilaterally AUSCULTATION: clear to auscultation bilaterally Cardio: COMMON NORMALS: no JVD, regular rate, regular rhythm, S1 normal heart sound present and S2 normal heart sound present RATE: regular rate RHYTHM: regular rhythm HEART SOUNDS: S1 normal heart sound present and S2 normal heart sound present GI: COMMON NORMALS: Normal to inspection, nondistended, normoactive bowel sounds present and non-tender Extremity: COMMON NORMALS: no calf tenderness and no pedal edema Neuro: COMMON NORMALS: patient oriented x3 Psych: COMMON NORMALS: mental status grossly normal Urinary Catheter Management: Finney: Cath Placed During This Visit: yes, but has since been removed by the nurse Reason for Continuing Indwelling Catheter: Decision to DC Catheter Urinary Catheter Date of Insertion: 07/05/25 Urinary Catheter Time of Insertion: 08:19 Date Urinary Catheter Removed: 07/10/25 Time Urinary Catheter Discontinued: 09:16 Data 07/11/25 05:21 07/11/25 05:21 A&P Assessment and plan 1. COPD (chronic obstructive pulmonary disease): Plan: 1. Tobacco abuse: 2. COPD (chronic obstructive pulmonary disease): 3. Acute hypoxemic respiratory failure: 4. COPD with acute exacerbation: 5. Acute hypoxic respiratory failure: 6. Sepsis: 7. Pneumonia: 8. Transaminitis: 9. NSTEMI (non-ST elevated myocardial infarction): Plan: 1. add tesaruna mercado and Annamariesin 2. ambulate with staff 3. continue current treatment 4. ok to dc PDMP PDMP Reviewed: Not Reviewed Attestations 2 Medical Necessity Statement*: can be discharged Coding Level of Care Code 89430 Diagnoses COPD (chronic obstructive pulmonary disease) J44.9
[2025-07-12] MEDS: guaiFENesin-dextromethorphan UDC 10 mL PO (16:24)
[2025-07-13] VITALS (10 sets, daily range): BP systolic 100–172; BP diastolic 69–72; PULSE 69–99; RESP 16–95; TEMP 36.4–36.9; O2SAT 93–96
--- NOTE | 2025-07-13 04:49 | PC.NURSE ---
Pt refused nicotine patch today due to it upsetting her stomach last time.
[2025-07-13] MEDS: morphine ER (12 HR) 30 mg tablet PO (06:38)
--- NOTE | 2025-07-13 15:16 | P.DS_ITS ---
Discharge Providers Date of Admission: 07/05/25 09:31 Date of Discharge: July 13, 2025 Attending Provider at Admission: Mark Jaramillo MD Attending Provider at Discharge: Berry Valentin MD Primary Care Provider: SLOAN Terry Diagnoses at Discharge Discharge Diagnosis 1. COPD (chronic obstructive pulmonary disease): Reason for Visit Reason for Visit: Severe Resp Distress Hospital Course Hospital Course 70-year-old female with history of COPD, CKD, hypothyroidism, CAD who presented on 1125 with complaints of shortness of breath.She was admitted for COPD exacerbation pneumonia transaminitis also noted maybe to have an elevated troponin. She was initially intubated on mechanical ventilation. Pulmonary was consulted. She was started on IV steroids. Echo was done. During her hospitalization she was able to be weaned. Her labs were monitored closely. She was extubated on 1127. She was weaned to room air. Her symptoms were stable. The patient did report some difficulty ambulating although she worked with therapy and did okay. She does report having a walker. At time of discharge she was on room air. She was transition to oral medications. And she was discharged in stable condition. The patient did report that she wanted to stay longer because she was waiting for a bed to be delivered at her home. She does report having a and family at home The patient appealed her discharge she stayed until her end. At time she was stable and not much changed Physical Exam Const: COMMON NORMALS: no acute distress and patient oriented x3 HENMT: COMMON NORMALS: normocephalic HEAD & SCALP: normocephalic Neck/C-Spine: COMMON NORMALS: no JVD Resp: COMMON NORMALS: normal respiratory effort, No retractions, No use of accessory muscles and clear to auscultation bilaterally AUSCULTATION: clear to auscultation bilaterally Cardio: COMMON NORMALS: no JVD, regular rate, regular rhythm, S1 normal heart sound present and S2 normal heart sound present RATE: regular rate RHYTHM: regular rhythm HEART SOUNDS: S1 normal heart sound present and S2 normal heart sound present GI: COMMON NORMALS: Normal to inspection, nondistended, normoactive bowel sounds present and non-tender Extremity: COMMON NORMALS: no calf tenderness and no pedal edema Neuro: COMMON NORMALS: patient oriented x3 Psych: COMMON NORMALS: mental status grossly normal Urinary Catheter Management: Finney: Cath Placed During This Visit: yes, but has since been removed by the nurse Reason for Continuing Indwelling Catheter: Decision to DC Catheter Urinary Catheter Date of Insertion: 07/05/25 Urinary Catheter Time of Insertion: 08:19 Date Urinary Catheter Removed: 07/10/25 Time Urinary Catheter Discontinued: 09:16 Discharge Data Studies Completed and Pending Completed Studies During Hospitalization Category Date Time Status CT angio chest PE protcl [id number] Stat Cat Scan 07/05/25 09:25 Completed CXRP [XR chest 1V portable [id number]] Stat Exams 07/05/25 10:41 Completed XR chest 1V portable [id number] Routine Exams 07/07/25 07:00 Completed XR chest 1V portable [id number] Stat Exams 07/05/25 08:02 Completed CV. echo complete* [id number] Routine Ultrasound 07/05/25 10:12 Completed Pending at discharge Category Date Time Status Blood Culture Stat Lab 07/09/25 12:51 Results Radiology Impressions Chest CTA 07/05/25 09:25 IMPRESSION: 1. No definite CTA evidence of pulmonary embolus. 2. Bronchitis 3. Patchy ground-glass opacity likely inflammatory in nature/multifocal pneumonia. 4. Very mild architectural changes of centrilobular emphysema. 5. Cholelithiasis with gallbladder distension. 6. Multinodular goiter. Consider thyroid ultrasound if not recently performed. COMMENTS: 1. Consistent with the [employer]'s Incidental Findings Committee white paper (J Am Delbert Radiol 2015): In patients aged 35 years and older with an incidental thyroid nodule equal to or greater than 1.[address], MRI or extrathyroidal US, further evaluation with dedicated thyroid US is recommended for patients with normal life expectancy and without comorbidities. For smaller nodules without suspicious features, no further evaluation or follow up is recommended. 2. The presence of pulmonary emphysema on CT is an independent risk factor for lung cancer. In the absence of a history or active diagnosis of lung cancer, it is recommended that this patient with emphysema be evaluated for enrollment in a low dose CT lung cancer screening program. Chest X-Ray 07/07/25 07:00 IMPRESSION: No acute cardiopulmonary abnormality. Laboratory Results WBC 12.09 10^3/uL (3.29-11.43) H 07/11/25 05:21 RBC 4.63 10^6/uL (3.85-5.65) 07/11/25 05:21 Hgb 14.20 g/dL (11.27-16.99) 07/11/25 05:21 Hct 44.8 % (36-47) 07/11/25 05:21 MCV 96.8 fl (85-98) 07/11/25 05:21 MCH 30.7 pg (27-33) 07/11/25 05:21 MCHC 31.7 g/dL (30-55) 07/11/25 05:21 RDW 12.7 % (12.1-15.1) 07/11/25 05:21 Plt Count 224 10^3/cmm (157-399) 07/11/25 05:21 MPV 10.0 fL (7.4-10.4) 07/11/25 05:21 Neut % (Auto) 58.1 % 07/11/25 05:21 Lymph % (Auto) 30.2 % 07/11/25 05:21 Saunders % (Auto) 7.0 % 07/11/25 05:21 Eos % (Auto) 2.1 % 07/11/25 05:21 Baso % (Auto) 0.4 % 07/11/25 05:21 Neut # (Auto) 7.03 10^3/uL (1.8-7.7) 07/11/25 05:21 Lymph # (Auto) 3.7 10^3/uL (0.8-4.8) 07/11/25 05:21 Saunders # (Auto) 0.9 10^3/uL (0.2-0.9) 07/11/25 05:21 Eos # (Auto) 0.3 10^3/uL (0.0-0.8) 07/11/25 05:21 Baso # (Auto) 0.1 10^3/uL (0.0-0.1) 07/11/25 05:21 Nucleated RBC % (auto) 0 % 07/11/25 05:21 Nucleated RBCs # 0.0 /100WBC 07/11/25 05:21 Specimen Type Arterial 07/06/25 04:00 Sample Site Brachial, right 07/06/25 04:00 ABG pH 7.45 (7.35-7.45) 07/06/25 04:00 ABG pCO2 41.5 mmHg (35-45) 07/06/25 04:00 ABG pO2 89.3 mmHg (80.0-100.0) 07/06/25 04:00 ABG PO2/FiO2 Ratio 255 07/06/25 04:00 ABG HCO3 28.7 mmol/L (22-26) H 07/06/25 04:00 ABG O2 Saturation 97.6 07/05/25 17:28 ABG Base Excess 4.2 mmol/L (-2.0-2.0) H 07/06/25 04:00 Diego Test Pos 07/06/25 04:00 A-a O2 Gradient 14.0 mmHg (5-10) H 07/05/25 17:28 Hematocrit 44.4 % (37-47) 07/06/25 04:00 Hgb O2 Saturation 96.4 % (95-100) 07/05/25 17:28 Carboxyhemoglobin 1.4 %THgb (0.4-20.1) 07/05/25 17:28 Methemoglobin < 0.0 % (0.4-1.5) L 07/05/25 17:28 Total Hemoglobin 14.3 g/dL (12-16) 07/05/25 17:28 Sodium 141.0 mmol/L (131-143) 07/05/25 17:28 Potassium 3.3 mmol/L (3.5-5.0) L 07/05/25 17:28 Glucose 146.0 mg/dL (70-115) H 07/05/25 17:28 Ionized Calcium 1.1 mmol/L (1.1-1.4) 07/05/25 17:28 O2 Delivery Device Vent 07/06/25 04:00 FiO2 35.0 % 07/06/25 04:00 Tidal Volume 0.34 07/06/25 04:00 PEEP 8.0 cmH20 07/06/25 04:00 Customer Service Agent ID Bd 07/06/25 04:00 Sodium 145 mmol/L (136-145) 07/11/25 05:21 Potassium 3.6 mmol/L (3.5-5.1) 07/11/25 05:21 Chloride 104 mmol/L (98-107) 07/11/25 05:21 Carbon Dioxide 30 mmol/L (22-29) H 07/11/25 05:21 Anion Gap 14.6 (5-19) 07/11/25 05:21 BUN 17 mg/dL (8-23) 07/11/25 05:21 Creatinine 0.7 mg/dL (0.5-0.9) 07/11/25 05:21 GFR Calculation Not Reportable 07/11/25 05:21 Glucose 98 mg/dL (65-115) 07/11/25 05:21 POC Glucose 113 mg/dL (70-110) H 07/07/25 12:53 Estimat Average Glucose 103 07/05/25 12:02 Hemoglobin A1c 5.2 % (4.0-6.0) 07/05/25 12:02 Calculated Osmolality 302 mOsm/kg (285-295) H 07/11/25 05:21 Lactic Acid 1.1 mmol/L (0.5-2.2) 07/05/25 12:02 Lactate 1.0 mmol/L (0.5-2.2) 07/07/25 04:07 Calcium 8.9 mg/dL (8.5-10.5) 07/11/25 05:21 Phosphorus 2.1 mg/dL (2.5-4.5) L 07/08/25 03:54 Magnesium 2.6 mg/dL (1.7-2.3) H 07/08/25 03:54 Total Bilirubin 0.7 mg/dL (0.15-1.2) 07/11/25 05:21 AST 15 U/L (0-32) 07/11/25 05:21 ALT 45 U/L (0-33) H 07/11/25 05:21 Alkaline Phosphatase 85 U/L (35-105) 07/11/25 05:21 Creatine Kinase 63 U/L (26-192) 07/07/25 07:13 Troponin T Baseline 27 ng/L (0-10) H 07/07/25 09:30 Troponin T 120 Minute 22.74 ng/L (0-10) H 07/07/25 11:37 Delta Troponin T -4.26 ABS# (0-10) L 07/07/25 11:37 Troponin T Hi Sens 6Hr 32.25 ng/L (0-10) H 07/07/25 16:33 Troponin T Hi Sens 6Hr Delta 5.25 ng/L (0-12) 07/07/25 16:33 C-Reactive Protein 3.0 mg/L (0.0-4.9) 07/11/25 05:21 NT-Pro-B Natriuret Pep 1725 pg/mL (0-125) H 07/11/25 05:21 Total Protein 6.0 g/dL (6.6-8.7) L 07/11/25 05:21 Albumin 3.8 g/dL (3.5-5.2) 07/11/25 05:21 Globulin 2.2 g/dL (1.3-4.6) 07/11/25 05:21 Triglycerides 52 mg/dL (0-150) 07/05/25 12:02 Cholesterol 132 mg/dL (0-200) 07/05/25 12:02 LDL Cholesterol, Calc 67 mg/dL (50-129) 07/05/25 12:02 HDL Cholesterol 55 mg/dL (60-100) L 07/05/25 12:02 LDL/HDL Ratio 1.22 RATIO (0.00-3.22) 07/05/25 12:02 Cholesterol/HDL Ratio 2.40 mg/dL (0.0-4.40) 07/05/25 12:02 Procalcitonin 0.29 ng/mL (0-0.5) 07/08/25 03:54 Procalcitonin Cancelled 07/08/25 03:54 TSH 0.80 uIU/mL (0.27-4.20) 07/05/25 12:02 Urine Color Yellow (Yellow) 07/05/25 08:15 Urine Appearance Clear (CLEAR) 07/05/25 08:15 Urine pH 5.5 (5-7) 07/05/25 08:15 Ur Specific Pep 1.017 (1.005-1.030) 07/05/25 08:15 Urine Protein 2+ (Negative) A 07/05/25 08:15 Urine Glucose (UA) Trace (Normal) H 07/05/25 08:15 Urine Ketones Negative (Negative) 07/05/25 08:15 Urine Blood 1+ (Negative) A 07/05/25 08:15 Urine Nitrate Negative (Negative) 07/05/25 08:15 Urine Bilirubin Negative (Negative) 07/05/25 08:15 Urine Urobilinogen 1.0 mg/dL (Negative) 07/05/25 08:15 Ur Leukocyte Esterase Negative (Negative) 07/05/25 08:15 Urine RBC 3-5 /hpf (0-2) 07/05/25 08:15 Urine WBC 0-5 /hpf (0-5) 07/05/25 08:15 Ur Squamous Epith Cells 0-5 /hpf (0-5) 07/05/25 08:15 Amorphous Sediment Not Reportable 07/05/25 08:15 Urine Bacteria None seen /hpf (NONE) 07/05/25 08:15 Hyaline Casts 12.81 /lpf 07/05/25 08:15 Nasal MRSA (PCR) Not detected (Not Detecte) 07/05/25 14:15 Vancomycin Trough 18.6 ug/mL (10-15) H 07/13/25 01:30 Influenza A (PCR) Negative (Negative) 07/05/25 08:15 Influenza Type B (PCR) Negative (Negative) 07/05/25 08:15 RSV (PCR) Negative (Negative) 07/05/25 08:15 SARS-CoV-2 (PCR) Negative (Negative) 07/05/25 08:15 Vitals Last Vital Signs Temp 98 F 07/13/25 12:03 Pulse 69 07/13/25 12:03 Resp 18 07/13/25 12:03 BP 100/69 07/13/25 12:03 Pulse Ox 93 07/13/25 12:03 O2 Del Method Room Air 07/13/25 11:00 O2 Flow Rate 1 07/11/25 00:45 FiO2 28 07/09/25 00:00 Discharge Plan Discharge Patient Disposition: Home Condition: Stable Prescriptions: New atorvastatin 40 mg Tablet 40 mg PO BEDTIME Qty: 30 0RF nicotine 14 mg/24 hr Patch 24 Hour 1 patch transdermal DAILY Qty: 30 0RF aspirin 81 mg Tablet,Delayed Release (Dr/Ec) 81 mg PO DAILY Qty: 30 0RF metoprolol tartrate 25 mg Tablet 12.5 mg PO Q12H Qty: 60 0RF amoxicillin-pot clavulanate 875-125 mg tablet 1 tab PO Q12H Qty: 10 0RF prednisone 10 mg tablet 10 mg PO DIRECTED Qty: 30 0RF Rx Instructions: see taper instructions: 20mg po daily x 1 week, then 10mg po qday Continued Advanced Probiotic 625 mg (10 billion cell) capsule 1 cap PO .2 times day Qty: 60 2RF Aspercreme (lidocaine) 4 % aerosol,spray 1 spray topical .2 times Qty: 113 0RF (DME) inogen oxygen 3L NC See Rx Instructions .Route .MEDSUPPLY Qty: 1 0RF Rx Instructions: As directed morphine 30 mg tablet extended release 30 mg PO Q12H clonazepam [Klonopin] 1 mg tablet 1 mg PO BID PRN (Reason: anxiety) Qty: 60 2RF Breztri Aerosphere 160-9-4.8 mcg/actuation HFA aerosol inhaler 2 inh inhalation BID Qty: 10.7 2RF escitalopram oxalate [Lexapro] 20 mg tablet 20 mg PO DAILY Qty: 30 2RF potassium chloride 10 mEq capsule, extended release 10 meq PO DAILY PRN (Reason: with fluid pill) Qty: 30 2RF triamcinolone acetonide 0.1 % cream 1 applic topical BID Qty: 80 0RF Rx Instructions: apply to legs methimazole 5 mg tablet 5 mg PO .COMPLEX Qty: 30 2RF Rx Instructions: 5 mg orally 5 days week hold 2 day nitroglycerin 0.4 mg tablet, sublingual 0.4 mg sublingual Q5M PRN (Reason: chest pain) Qty: 25 0RF Rx Instructions: do not exceed 3 doses per episode (DME) nebulizers [AeroEclipse II Nebulizer] [employer] [facility] See Rx Instructions .Route Qty: 1 0RF Rx Instructions: As directed ipratropium-albuterol 0.5 mg-3 mg(2.5 mg base)/3 mL solution for nebulization 3 ml inhalation Q6H PRN (Reason: wheezing) Qty: 180 2RF Rx Instructions: stop albuterol albuterol sulfate [Ventolin HFA] 90 mcg/actuation HFA aerosol inhaler 2 puff INHALATION Q4H PRN (Reason: shortness of breath or wheezing) Qty: 18 2RF diphenoxylate-atropine [Lomotil] 2.5-0.025 mg tablet 1 tab PO BID PRN (Reason: diarrhea) Qty: 60 0RF baclofen 20 mg tablet 20 mg PO DAILY Qty: 30 2RF ketorolac 10 mg tablet 10 mg PO DAILY PRN (Reason: pain) Qty: 10 0RF Rx Instructions: Do not take with Relafen ergocalciferol (vitamin D2) 1,250 mcg (50,000 unit) capsule 1,250 mcg PO .weekly Qty: 4 2RF Discontinued prednisone 5 mg tablet 5 mg PO DAILY Qty: 20 0RF Discharge Order = DC NOW: Discharge Order (Routine); Ordered 07/11/25 Ordered By: Berry Valentin Referrals: Myron Jacobs, [facility]K [employer] [Primary Care Provider, [facility]] - 07/19/25 3:00 pm Discharge Diet: Cardiac Patient Instructions: Metoprolol (By mouth), Prednisone (By mouth), Amoxicillin/Clavulanate Potassium (By mouth), Heart Attack (GEN), Opioid Safety, Patient Portal & Dashawn Instructions Plan of Treatment: followup with pcp, take medications as prescribed Discharge Attestations Time Spent in Discharge Care*: less than 30 min Quality Metrics Clinical Quality Measures [ No reported AMI, CVA or VTE this stay] Coding Level of Care Code Acute Code for [facility] Diagnoses COPD (chronic obstructive pulmonary disease) J44.9
== END 2025-07-13 11:50 | disposition home or self-care (01) | DRG 871 ==
LOC: ER 09:07 → ICU 09:31 → MEDSURG 07-08 20:09
PROVIDERS: Family Medicine; Internal Medicine; Admitting Provider Family Medicine; Emergency Provider Emergency Medicine; PCP Nurse Practitioner; Visit Provider Internal Medicine
DX: A41.9 Sepsis, unspecified organism (principal); J18.9 Pneumonia, unspecified organism; J96.21 Acute and chronic respiratory failure with hypoxia; J96.22 Acute and chronic respiratory failure with hypercapnia; J44.1 Chronic obstructive pulmonary disease with (acute) exacerbation; J44.0 Chronic obstructive pulmonary disease with (acute) lower respiratory infection; I47.19 Other supraventricular tachycardia; I50.22 Chronic systolic (congestive) heart failure; N18.2 Chronic kidney disease, stage 2 (mild); E03.9 Hypothyroidism, unspecified; I25.10 Atherosclerotic heart disease of native coronary artery without angina pectoris; F41.1 Generalized anxiety disorder; K21.9 Gastro-esophageal reflux disease without esophagitis; K58.0 Irritable bowel syndrome with diarrhea; F17.210 Nicotine dependence, cigarettes, uncomplicated; Z79.51 Long term (current) use of inhaled steroids
CPT/HCPCS: 36415; 36416; 36592; 36600; 51702; 71045; 71275; 80051; 80053; 80061; 80202; 81001; 82330; 82550; 82803; 82805; 82962; 83036; 83605; 83735; 83880; 84100; 84145; 84443; 84484; 85025; 86140; 87040; 87070; 87077; 87150; 87205; 87637; 93005; 93306; 94002; 94003; 94640; 94660; 94760; 94799; 96365; 96366; 96367; 96372; 96375; 97161; 99291; 99292; C1751; J0131; J1650; J1938; J2020; J2185; J2250; J2270; J2405; J2704; J2919; J3372; J3373; J3490; J7030; J7050; J7512; J7605; J7626; J9999